=== PATIENT | male | born 1950 | race Caucasian/White ===

== ENCOUNTER → 2017-02-20 | Outpatient (CLI) | payer OTHER ==
[2017-02-20 12:14] LABS: BASO % 0.3 %; BASO ABS # 0.02 K/uL (0-0.2); COMPLETE YES; EOS % 3.8 %; HEMATOCRIT 48.5 % (42-52); IG% 0.3 %; LYMPH % 18.6 %; LYMPH ABS # 1.08 K/uL (1.2-3.4); MEAN CELL VOLUME 86.8 fL (80-100); MEAN CORPUSCULAR HEMOGLOBIN 30.1 pg (25-34); MEAN CORPUSCULAR HGB CONC 34.6 g/dl (32-36); MEAN PLATELET VOLUME 11.3 fL (7.4-10.4); MONO % 12.2 %; NEUT % 64.8 %; PLATELET COUNT 157 K/uL (130-400); RED BLOOD COUNT 5.59 M/uL (4.7-6.1); WHITE BLOOD COUNT 5.81 K/uL (4.8-10.8)
[2017-02-20 12:22] LABS: ALT/SGPT 26 U/L (12-78); AST/SGOT 18 U/L (15-37); BLOOD UREA NITROGEN 18 mg/dl (7-18); BUN/CREATININE RATIO 32.5 (10-20); CALCIUM 8.5 mg/dl (8.5-10.1); CARBON DIOXIDE 22 mmol/L (21-32); CHLORIDE 110 mmol/L (98-107); CREATININE 0.56 mg/dl (0.60-1.40); GLUCOSE 108 mg/dl (70-99); POTASSIUM 4.1 mmol/L (3.5-5.1); SODIUM 139 mmol/L (136-145)
[2017-02-20 12:33] LABS: ALB/GLOB RATIO 0.8 (0.9-2); ALKALINE PHOSPHATASE 86 U/L (45-117); CHOLESTEROL 188 mg/dl (0-200); CHOLESTEROL/HDL RATIO 5.2; HDL CHOLESTEROL 36 mg/dl; LDL CHOLESTEROL CALCULATED 139 mg/dl; TRIGLYCERIDES 64 mg/dl (0-150); VERY LOW DENSITY LIPOPROT CALC 13 mg/dl
== END | disposition home or self-care (01) ==
LOC: C.LABBFT 08:52
PROVIDERS: ATTEND Neuromusculoskeletal Medicine & OMM
DX: Z11.59 Encounter for screening for other viral diseases (principal); Z12.5 Encounter for screening for malignant neoplasm of prostate; R03.0 Elevated blood-pressure reading, without diagnosis of hypertension

== ENCOUNTER → 2017-02-21 | Outpatient (CLI) | payer OTHER ==
--- NOTE | 2017-02-21 09:11 | DIAGNOSTIC IMAGING REPORT ---
R KNEE 1 OR 2 VIEWS ROUTINE CLINICAL HISTORY: M25.561 Chronic pain of right [id number] pain COMPARISON: None. DISCUSSION: Considerable degenerative change all major joint compartments. Narrowing of the joint compartments with mild sclerosis of the articular services. Mild osteophytic reaction from the superior and inferior aspects of the patella. No significant joint effusion. There is no evidence for soft tissue swelling. IMPRESSION: Significant degenerative change all major joint compartments. No acute process. The above report was generated using voice recognition software. It may contain grammatical, syntax or spelling errors. Electronically signed by: Kostas Peck M.D. 02/21/2017 9:09 AM Dictated Date/Time: 02/21/2017 9:08 AM
--- NOTE | 2017-02-21 09:17 | DIAGNOSTIC IMAGING REPORT ---
L HIP UNILATERAL 2 VIEWS CLINICAL HISTORY: M25.352 Hip joint instability, leftR29.898 Left leg weakness left COMPARISON: None. DISCUSSION: Severe degenerative change left hip. Complete loss of joint space. Deterioration and collapse of the superior aspect of the left femoral head. Considerable subchondral cyst formation of the superior acetabular margin. Deformity left pubic ring possibly secondary to old posttraumatic change. There is no evidence for soft tissue swelling. IMPRESSION: Severe degenerative change left hip and associated acetabulum as described. Potential underlying components of avascular necrosis. The above report was generated using voice recognition software. It may contain grammatical, syntax or spelling errors. Electronically signed by: Kostas Peck M.D. 02/21/2017 9:15 AM Dictated Date/Time: 02/21/2017 9:14 AM
== END | disposition home or self-care (01) ==
LOC: C.RADBC 08:33
PROVIDERS: ATTEND Neuromusculoskeletal Medicine & OMM
DX: M16.12 Unilateral primary osteoarthritis, left hip (principal); M17.11 Unilateral primary osteoarthritis, right knee

== ENCOUNTER → 2017-05-18 | Outpatient (CLI) | payer OTHER ==
[~2017-05-18] VITALS: Ht 167.6 cm; Wt 123.6 kg
[~2017-05-18] MED LIST: ACET-1256 PO; ASPI81TA28 PO; ATOR-24 PO; HYDR-5688 PO; LPT/40 PO; LPT40 PO; LSN5 PO; NTRSLP4 SL; PLV75 PO; PRED20TA2 PO; TPRSR50 PO
[2017-05-18 08:56] LABS: BASO % 0.3 %; BASO ABS # 0.02 K/uL (0-0.2); EOS % 3.3 %; HEMATOCRIT 47.6 % (42-52); HEMOGLOBIN 16.8 g/dL (14.0-18.0); IG# 0.01 K/uL (0.00-0.02); LYMPH % 15.5 %; LYMPH ABS # 0.94 K/uL (1.2-3.4); MEAN CELL VOLUME 86.5 fL (80-100); MEAN CORPUSCULAR HEMOGLOBIN 30.5 pg (25-34); MEAN CORPUSCULAR HGB CONC 35.3 g/dl (32-36); MEAN PLATELET VOLUME 10.7 fL (7.4-10.4); MONO % 9.5 %; MONO ABS # 0.58 K/uL (0.11-0.59); NEUT % 71.2 %; NEUT ABS # 4.33 K/uL (1.4-6.5); PLATELET COUNT 152 K/uL (130-400); RED CELL DISTRIBUTION WIDTH CV 13.1 % (11.5-14.5); RED CELL DISTRIBUTION WIDTH SD 41.8 fL (36.4-46.3); WHITE BLOOD COUNT 6.08 K/uL (4.8-10.8)
[2017-05-18 09:11] LABS: PTT PATIENT 25.9 SECONDS (21.0-31.0)
--- NOTE | 2017-05-18 09:19 | DIAGNOSTIC IMAGING REPORT ---
TWO VIEW CHEST CLINICAL HISTORY: Preoperative examination. FINDINGS: PA and lateral chest radiographs are obtained. No prior studies are available for comparison at the time of dictation. The PA view is degraded by patient rotation. The heart is enlarged and there is mild atherosclerotic calcification of the thoracic aorta. The pulmonary vasculature is noncongested. The lungs and pleural spaces are clear. There is no pneumothorax. The skeletal structures are osteopenic. Degenerative change is present throughout the thoracic spine. There are healed left-sided rib fractures. IMPRESSION: Cardiomegaly with no active disease in the chest. Electronically signed by: Frank Bonilla M.D. 05/18/2017 9:18 AM Dictated Date/Time: 05/18/2017 9:17 AM
[2017-05-18 09:22] LABS: BLOOD UREA NITROGEN 19 mg/dl (7-18); CALCIUM 9.2 mg/dl (8.5-10.1); CARBON DIOXIDE 28 mmol/L (21-32); CREATININE 0.58 mg/dl (0.60-1.40); GLUCOSE 116 mg/dl (70-99); POTASSIUM 3.9 mmol/L (3.5-5.1); SODIUM 138 mmol/L (136-145)
--- NOTE | 2017-05-18 22:50 | HISTORY & PHYSICAL EXAMINATION ---
DATE OF ADMISSION: 05/22/2017 CHIEF COMPLAINT: Left hip pain. HISTORY OF PRESENT ILLNESS: This is a 67-year-old gentleman who is referred by my partner Dr. Fisher for surgical treatment of his left hip. He has a 2-year history of increasing left hip pain and discomfort that has gotten to the point where he has used a walker to get around for the past couple of months. No known injury. Describes groin pain, thigh pain and knee pain. It is constant. His leg feels unstable. He states he had several falls as of result of it giving out. X-rays show progressive hip arthritis and the patient elected to proceed with operative treatment. PAST MEDICAL HISTORY: Obesity. PAST SURGICAL HISTORY: None. ALLERGIES: None. CURRENT MEDICATIONS: None. SOCIAL HISTORY: A 67-year-old male. He is . Rare alcohol intake. Does not smoke. FAMILY HISTORY: Significant for cerebrovascular disease. REVIEW OF SYSTEMS: Negative for diabetes, neurologic problems, vascular problems, bleeding disorders. Denies any chest pain or shortness of breath. No history of DVT or PE. He is obese. PHYSICAL EXAMINATION: GENERAL: Reveals a large, middle-aged male. He looks to be in reasonably good health. HEENT: Benign. NECK: Supple. No lymphadenopathy. LUNGS: Clear to auscultation. HEART: Regular rate and rhythm. ABDOMEN: Soft, nontender, nondistended. EXTREMITIES: Grossly neurovascularly intact except as follows: Examination of left hip and leg reveals the patient walks with the use of a walker. Leg lengths are difficult to assess due to the flexion contracture. He has a very stiff hip with minimal motion. He cannot rotate to neutral even. Pain with any type of hip motion. No knee effusion. He is neurologically intact. X-RAYS: X-rays of the left hip were reviewed. It shows advanced left hip DJD. He has collapse of the femoral head. He has essentially destruction of the femoral head. He has large osteophytes around the femoral head and acetabulum. ASSESSMENT: A 67-year-old male with a 2-year history of increasing left hip pain and discomfort and severe and progressive hip arthritis. He would like to proceed with total hip replacement. PLAN: We will take him to the operating room and do a left total hip replacement. The risks and benefits of this procedure were explained to the patient including but not limited to DVT, PE, , infection, neurological injury, vascular injury, bleeding problem, pain, limited range of motion, stiffness, failure to relieve symptoms, incomplete relief of symptoms, need for further surgery in the future, fracture, leg length inequality, nerve palsy, dislocation, etc. The patient understands and desires to proceed. Informed consent was obtained. We did tell him we will do the best we can to make his leg lengths as equal as possible. We are going to plan on using an uncemented Corail stem. We will have a cemented stem as backup due to his poor bone density. As far as discharge plans, he is planning to be discharged home using [facility] home health program.
[2017-05-20 08:22] VITALS: Ht 167.6 cm; Wt 123.6 kg
== END | disposition home or self-care (01) ==
LOC: C.LAB 08:00 → EDSTATUS 05-22 11:45
PROVIDERS: ATTEND Orthopaedic Surgery Sports Medicine
DX: Z01.810 Encounter for preprocedural cardiovascular examination (principal); Z01.811 Encounter for preprocedural respiratory examination; Z01.812 Encounter for preprocedural laboratory examination; M17.12 Unilateral primary osteoarthritis, left knee; I51.7 Cardiomegaly; I44.0 Atrioventricular block, first degree

== ENCOUNTER → 2017-05-28 | Outpatient (CLI) | payer OTHER ==
[~2017-05-28] MED LIST changes: -HYDR-5688 PO; -LPT/40 PO; -PRED20TA2 PO; +REGADENOSON 0.4 MG/5 ML SYR ONE
--- NOTE | 2017-05-29 08:03 | Myocardial Perfusion Study ---
Myocardial Perfusion Study Rpt Myocardial Perfusion Study Rpt Myocardial Perfusion Study Rpt ONE DAY NUCLEAR MEDICINE LEXISCAN TECHNETIUM 99M MYOCARDIAL PERFUSION SCAN Indication: New cardiomyopathy Baseline ECG: Normal sinus rhythm with 1st degree AV block with occasional PVC, LVH, nonspecific intraventricular conduction delay, inferior infarct, inferolateral TWI. Ventricular rate 75. Stress ECG: No Lexiscan induced ST changes. Occasional PVCs. HR jorje from 75 to 100 representing 65% MPHR. Technique: For the stress portion of the study 32.8 mCi of Technetium 99m Cardiolite IV was injected at 11:35 am on 05/28/2017. 30 minutes following the injection, imaging of the heart was performed in multiple projections. For the rest portion of the study, 11.0 mCi of Technetium 99m Cardiolite was injected IV at 09:30 am. One hour following the injection, imaging of the hear was performed in the same projections. Findings: Rotating raw images were reviewed in detail. Potential sources of attenuation include imaging with arms at sides, and mild gut uptake impacting the inferior imaging border of the heart. No significant extracardiac pathologic uptake. Short axis, vertical long axis and horizontal long axis images were reviewed in detail. No visual TID. Severe, large, primarily fixed perfusion defect involving the inferior, inferoseptal and inferolateral clayton (SRS 28, 41% of myocardium). Severely dilated LV. Calculated EDV 470 ml. Calculated EF 10%. Hypokinetic anterior and lateral wall. Paradoxical septal motion. Akinetic inferior, inferolateral and inferoseptal clayton. SUMMARY: 1. Severe, large, fixed inferior/inferoseptal/inferolateral infarct without significant viability. 2. Severely dilated LV with severe LV dysfunction. Calculated LVEF 10% with anterior, lateral hypokinesis and inferior/inferolateral/inferoseptal akinesis. 3. Non-diagnostic stress ECG due to inability to reach target HR with Lexiscan.
== END | disposition home or self-care (01) ==
LOC: C.NUCL 09:04
PROVIDERS: ATTEND Internal Medicine Cardiovascular Disease
DX: R93.1 Abnormal findings on diagnostic imaging of heart and coronary circulation (principal); R94.31 Abnormal electrocardiogram [ECG] [EKG]; Z01.810 Encounter for preprocedural cardiovascular examination; I21.9 Acute myocardial infarction, unspecified

== ENCOUNTER 2017-06-04 08:28 | Observation (INO) | payer OTHER ==
[2017-06-04] VITALS (17 sets, daily range): BP systolic 132–180; BP diastolic 73–101; PULSE 65–87; TEMP 36.3–36.7; O2SAT 94–98; Ht 167.6 cm; Wt 122.3 kg
[~2017-06-04] VITALS: Ht 167.6 cm; Wt 122.3 kg
[~2017-06-04 08:28] MED LIST changes: -ASPI81TA28 PO; -ATOR-24 PO; -LPT40 PO; -LSN5 PO; -NTRSLP4 SL; -PLV75 PO; -REGADENOSON 0.4 MG/5 ML SYR ONE; -TPRSR50 PO
[2017-06-04] MEDS ORDERED: NiCARDipine HCL INJ 2.5 MG/ML 10 ML AMP ONE (09:28)
[2017-06-04] MEDS ORDERED: NITROGLYCERIN/D5W 100MCG/ML 20ML SYR ONE (09:28)
[2017-06-04] MEDS ORDERED: MIDAZOLAM HCL 1 MG/ML 2ML VIAL ONE ×3 (09:29→11:48)
[2017-06-04] MEDS ORDERED: HEPARIN SOD (PORCINE) 1000 UNIT/ML 10 ML VIAL ONE ×2 (09:29→10:56)
[2017-06-04] MEDS ORDERED: FENTANYL CITRATE INJ 50 MCG/1 ML 2 ML VIAL ONE ×2 (09:30→11:36)
[2017-06-04] MEDS ORDERED: ATOR-24 PO (09:35)
[2017-06-04] MEDS ORDERED: TPRSR50 PO (09:35)
[2017-06-04] MEDS ORDERED: ASPI81TA28 PO (09:35)
[2017-06-04] MEDS ORDERED: ASPIRIN 81 MG CHEW ONE (10:12)
[2017-06-04] MEDS ORDERED: IV FLUIDS COMPLETED PRN (12:15)
[2017-06-04] MEDS ORDERED: TICAGRELOR 90 MG TAB PO ONE (12:16)
--- NOTE | 2017-06-04 12:37 | History & Physical Bridge Note ---
H&P Re-Evaluation Bridge Note: I have examined the patient, reviewed the History & Physical and in the interval since the performance of the History & Physical I have noted the following changes of clinical significance: No changes noted
--- NOTE | 2017-06-04 12:38 | Post Sedation Assessment ---
Post Sedation Assessment General Date of Sedation Jun 04, 2017. Vital Signs: Vital Signs Past 12 Hours Date Time Temp Pulse Resp B/P (MAP) Pulse Ox O2 Delivery O2 Flow Rate FiO2 06/04/17 12:14 65 16 142/86 (104) 98 Room Air 06/04/17 09:23 36.6 74 16 180/96 (124) 98 Room Air Post Procedure Recovery Score Activity: (2) Moves 4 extremities * Respiration: (2) Deep breath/cough Circulation: (2) +/-20% PreAnes Value Consciousness: (2) Fully Awake Oxygen Saturation: (2) > 92% On Room Air Post Anesthesia Score: 10 Discharge Sedation Level of Care: Fast Track Phase II Post Sedation Plan On clinical assessment, the patient appears to have tolerated the sedation without complications. Patient is recovering as anticipated. Patient will continue to be monitored by nursing and may be discharged when sedation discharge criteria are met per below protocol. Upon Completions of procedure and additional 15 minutes continue every 5 minute vital signs and the P.A.R. score; then discharge to a Phase I or Fast Track to Phase II per the following guidelines: * Discharge Patient to appropriate Phase II area if PAR is 8 or greater or return to pre- procedure baseline. The post - procedure orders will be as directed. * If PAR score is less than 8 or not return to pre-procedure baseline then patient will follow Phase I monitoring till PAR is reached for Phase II. The Phase I may be done in procedure room or may call to secure a Phase I area. * If naloxone or flumazenil are used for reversal, hold in Phase I for an additional 60 -120 minutes before discharge to Phase II. Please call the Sedation Physician to re-evaluate and complete post-note for discharge to Phase II area. Do NOT discharge from procedure sedation or Phase 1 until post- sedation evaluation note is complete by procedure /sedation MD Sedation Discharge Instructions to be given to the patient at discharge to home.
--- NOTE | 2017-06-04 12:38 | Pre Sedation Assessment ---
Pre Sedation Assessment General Date of Sedation: Jun 04, 2017. Vital Signs Past 12 Hours Date Time Temp Pulse Resp B/P (MAP) Pulse Ox O2 Delivery O2 Flow Rate FiO2 06/04/17 12:14 65 16 142/86 (104) 98 Room Air 06/04/17 09:23 36.6 74 16 180/96 (124) 98 Room Air Review Cardiovascular: regular rate, rhythm, no edema Lungs: chest non-tender, lungs clear Pre-Sedation Airway Assessment Smoking Status: Never Smoker Hx of Sleep Apnea: No Hx of difficult intubation: No Short Thick Neck: No Thyro-mental Distance: > 3 Finger Breadths Oral Cavity: WNL Mallampati Classification: Class III ASA Classification: Class III Procedure Planning Contraindications for Sedation: None Current Medications Reviewed: Yes Notes The planned sedation has been discussed with the patient. Informed Consent was obtained. I have identified the patient, determined the appropriateness of sedation and have assessed the patient immediately prior to the procedure. All medicine(s) and interventions are by my order.
[2017-06-04] MEDS ORDERED: NITROGLYCERIN 0.4 MG SL PER TAB CHARGE SL PRN (12:45)
[2017-06-04] MEDS ORDERED: ACETAMINOPHEN 325 MG TAB PO PRN (12:45)
[2017-06-04] MEDS ORDERED: ONDANSETRON INJ 2 MG/ML 2 ML VIAL IV PRN (12:45)
--- NOTE | 2017-06-04 13:00 | Cardiac Catheterization ---
Procedure Note Procedure Date Jun 04, 2017. Pre-Procedure Diagnosis Positive Stress Test, Cardiomyopathy AUC Score 7 Post-Procedure Diagnosis Severe CAD, Successful PCI Procedure(s) Performed Coronary Angiography, Drug Eluting Stent Editor Farm Journal Devin Mold Inspector(s) Víctor Estimated Blood Loss 15 Medication(s) Fentanyl, Heparin, Nicardipine, Nitroglycerin, Versed, Lidocaine 1% Ticagrelor Summary of Findings Indication: Cardiomyopathy, Abnormal stress test Access: 6Fr slender right radial artery Catheters: [place]; EBU 3.5 guide Findings: LM - Luminal irregularities LAD - Large vessel, 80% proximal to mid stenosis involving bifurcation of moderate caliber 1st diagonal. 1st diagonal with 90% diffuse ostial/proximal disease. Mid to distal LAD with luminal irregularities Ramus - Angiographically normal Circumflex - Luminal irregularities; gives off 3 small OMs without significant disease; Distal circumflex provides epicardial collaterals to large right distal PLBs. RCA - 100% chronic total occlusion in mid segment; few bridging collaterals partially fills R-PAV, small PLB. -- PCI -- Antithrombotic therapy: Heparin, ticagrelor Procedure: LM cannulated with EBU 3.5 guide BMW wire passed across LAD lesion into distal vessel Store Detective 50 wire passed into distal 1st diagonal Ostial/proximal diagonal pre-dilated with 2.5 balloon Proximal/mid LAD dilated with 2.5 compliant balloon. 2.5 x 33 Xience NEIL placed at ostium of 1st diagonal Mid LAD dilated again with 3.0 compliant balloon. Brief non-sustained VT resolved without intervention. 3.5 x 23 Xience NEIL placed across 1st diagonal ostium (T with protrusion) LAD Stent post-dilated with 4.0 noncompliant balloon Able to rewire into 1st diagonal but unable to pass 1.5 balloon across stent struts IC vasodilators administered for spasm Post procedure NIHARIKA 3 flow in LAD and 1st diagonal, stents well expanded with minimal residual stenosis and no apparent cardiac complications. Arterial Closure: TR band Summary: 1. Severe 2 vessel coronary artery disease - 100% TRADE ANALYST mid RCA with left to right collaterals and few right to right collaterals - 80% proximal to mid LAD with 90% diffuse 1st diagonal disease 2. Successful PCI of proximal-mid LAD, 1st diagonal bifurcation with 2 drug- eluting stents (3.5 x 23 Xience [post-dilated with 4.0 NC], 2.5 x 33 Xience in diagonal) Recommendations: To PCU for continued monitoring Loaded with Ticagrelor 180mg in [employer] Continue dual-antiplatelet therapy for at least 6 months Continue statin, ASCVD risk factor modification Continue guideline directed medical therapy for cardiomyopathy. Consult cardiac Rehab Reassess LV function in 3 months. Hemodynamics Rest Ao: 105/67/83 Final Ao: 140/70/97 LV: -- Recommendations PCI without planned CABG Specimens None Radiation Exposure (mGy) 8382 (patient counseled on signs/sxs of radiation injury) Contrast (mls) 270 Visi Fluids (cc crystalloids) 220 Drains None Anesthesia Moderate Procedural Complication(s) None Disposition PCU ACC Data Cardiac Status Clinical evaluation leading to the procedure CAD Presntation: Positive Stress Test Anginal Classification: CCS II Heart Failure: No, NYHA Class: CCS I Cardiogenic Shock w/in 24Hrs: No Cardiac Arrest w/in 24Hrs: No Imaging studies past 6 months: Yes Stress studies past 6 months: Yes Stress Testing w/SPECT MPI: Yes - Positive, Risk/Extent of Ischemia (Low) Closure Device Percutaneous Entry Location: Radial Closure Device: Radial Band Recommendations: PCI without planned CABG PCI Indication: + Stress Test Lesion Segment Name: Proximal-mid LAD Culprit Artery: Yes Stenosis Prior to Rx (%): 80 Chronic Total Occlusion: No IVUS: No FFR: No Pre-Procedure NIHARIKA Flow: 3 Previously Treated Lesion: No Lesion Complexity: High/C Lesion Length (mm): 20 Thrombus Present: No Bifurcation Lesion: Yes Guidewire Across Lesion: Yes Guidewire: Stenosis Post-Procedure (%): 0 Post-Procedure NIHARIKA Flow: 3 Device(s) Deployed: Yes Intraprocedure Events Significant Dissection: No Perforation: No
[2017-06-04] MEDS: SODIUM CHLORIDE 0.9% 1000ML 1,000 ML IV SCH ×2 (13:41→20:02)
[2017-06-04] MEDS: METOPROLOL SUCC 50MG EXT REL TAB PO SCH (14:21)
[2017-06-04] MEDS: TICAGRELOR 90 MG TAB PO SCH (20:58)
[2017-06-04] MEDS ORDERED: ATORVASTATIN 40 MG TAB PO SCH (21:00)
[2017-06-05 03:37] VITALS: BP 144/84; PULSE 78; TEMP 36.6; O2SAT 95
[2017-06-05 05:41] LABS: BASO % 0.1 %; BASO ABS # 0.01 K/uL (0-0.2); EOS % 4.6 %; EOS ABS # 0.36 K/uL (0-0.5); HEMATOCRIT 43.4 % (42-52); HEMOGLOBIN 14.8 g/dL (14.0-18.0); IG# 0.02 K/uL (0.00-0.02); LYMPH % 9.2 %; LYMPH ABS # 0.72 K/uL (1.2-3.4); MEAN CELL VOLUME 87.5 fL (80-100); MEAN CORPUSCULAR HEMOGLOBIN 29.8 pg (25-34); MEAN CORPUSCULAR HGB CONC 34.1 g/dl (32-36); MEAN PLATELET VOLUME 10.8 fL (7.4-10.4); MONO % 11.9 %; MONO ABS # 0.93 K/uL (0.11-0.59); NEUT % 73.9 %; NEUT ABS # 5.76 K/uL (1.4-6.5); PLATELET COUNT 140 K/uL (130-400); RED CELL DISTRIBUTION WIDTH CV 13.3 % (11.5-14.5); RED CELL DISTRIBUTION WIDTH SD 42.9 fL (36.4-46.3)
[2017-06-05 06:11] LABS: CALCIUM 8.4 mg/dl (8.5-10.1); CREATININE 0.67 mg/dl (0.60-1.40); POTASSIUM 4.2 mmol/L (3.5-5.1)
[2017-06-05] MEDS: METOPROLOL SUCC 50MG EXT REL TAB PO SCH (07:51)
[2017-06-05] MEDS: TICAGRELOR 90 MG TAB PO SCH (07:51)
[2017-06-05 08:08] VITALS: BP 134/76; PULSE 74; TEMP 36.3; O2SAT 97
[2017-06-05] MEDS ORDERED: LISINOPRIL 5 MG TAB PO SCH (09:00)
[2017-06-05] MEDS ORDERED: ASPIRIN 81 MG ECTAB PO SCH (09:00)
[2017-06-05] MEDS ORDERED: CLOPIDOGREL BISULFATE 300 MG TAB PO STA (09:16)
[2017-06-05] MEDS ORDERED: LSN5 PO (09:22)
[2017-06-05] MEDS ORDERED: PLV75 PO (09:22)
[2017-06-05] MEDS ORDERED: LPT40 PO (09:22)
[2017-06-05] MEDS ORDERED: NTRSLP4 SL (09:22)
--- NOTE | 2017-06-05 09:24 | Discharge Instructions ---
Discharge Instructions Procedure Procedure Date: Jun 05, 2017. Reason for Visit: Abn Echo. Discharge Discharge Date: Jun 05, 2017. Discharge Diagnosis: Coronary artery disease, cardiomyopathy Last Recorded Wt (Kilograms): 122.300 Anesthesia Post Anesthesia Instructions: If you have had General Anesthesia or IV Sedation: * Do not drive today. * Resume driving when surgeon permits. * Do not make important decisions or sign legal documents today. * Call surgeon for: 1. Temperature elevations greater than 101 degrees F. 2. Uncontrollable pain. 3. Excessive bleeding. 4. Persistent nausea and vomiting. 5. Medication intolerance (nausea, vomiting or rash). * For nausea and vomiting use only clear liquids such as: tea, soda, bouillon until nausea subsides, then gradually increase diet as tolerated. * If you have any concerns or questions, call your surgeon's office. If physician is unavailable and it is an emergency, call 911 or go to the nearest emergency room. Instructions Activity Recommendations: limitations as noted below Recommended Home Diet: low sodium, low cholesterol Allergies: Coded Allergies: No Known Allergies (Unverified , 05/20/17) Follow Up Additional Instructions: ACTIVITY RECOMMENDATIONS: Excess manipulation of the wrist should be avoided for the next 24-48 hours. * No lifting over 2 pounds (approximately a 1/2 gallon of milk) with the utilized arm for 24 hours. * No strenuous activity such as bowling or tennis for 3 days. * Keep the site of the procedure covered with a bandage for 24 hours. *You may shower the day after the procedure. Do not take a tub bath or submerge the puncture site in water for the next 3 days. *Do not operate any motorized equipment for 3 days. SPECIAL CARE INSTRUCTIONS: The site may be slightly bruised and sore following your procedure. Should any of the following occur, contact the Dr. who performed your procedure. 1. Redness/inflammation, swelling, chills, or fever, or colored drainage at procedure site within 3-7 days after your procedure. 2. Coldness, discoloration, ongoing numbness, severe pain, or swelling. Expect mild tingling of hand and tenderness at the puncture site for up to three days. If this persists beyond three days, or other symptoms develop, notify the Dr. who performed your procedure. BLEEDING: If the procedure site on your wrist begins to bleed, do not panic 1. Place 1 or 2 fingers firmly just slightly above the insertion site to stop the bleeding. You may be able to feel your pulse as you hold pressure. 2. Lift your finger after 5 minutes to see if the bleeding has stopped. 3. Once the bleeding has stopped, gently wipe the wrist area clean with a bandage. * If the bleeding from your wrist does not stop after 10 minutes, or if there is a large amount of bleeding or spurting, call 911 (do not drive yourself to the hospital). SKIN IRRITATION: * You may experience some redness and/or swelling in the area where radiation was administered. If any skin irritation occurs, please contact your family physician. FOLLOW UP VISIT: Keep any scheduled doctor appointments. Follow-up with: As scheduled with Dr. Sarthak Natarajan Recommendations: Call your doctor if: * Temperature above 101 degrees * Pain not relieved by pain medicine ordered * There is increased drainage or redness from any incision * You have any unanswered questions or concerns. Your Doctors Instructions noted above were prepared by provider Anil Beltran. Patient Signature Section: Patient Instructions Signature Page Iftikhar Alfaro Patient (or Guardian) Signature/Date: I have read and understand the instructions given to me by my caregivers. Caregiver/RN/Doctor Signature/Date: The above-named patient and/or guardian has received patient instructions on this date. + Original Patient Signature Page (only) stays with chart. Please make copy for patient.
--- NOTE | 2017-06-05 09:53 | DISCHARGE SUMMARY ---
ADMITTING DIAGNOSES: 1. Cardiomyopathy. 2. Multivessel coronary artery disease. 3. Abnormal stress test. 4. Nonsustained ventricular tachycardia. HISTORY OF PRESENT ILLNESS: Mr. Alfaro is a 67-year-old man with morbid obesity and severe osteoarthritis involving his hip who was undergoing evaluation for a total hip replacement when was noted on preoperative evaluation to have an initial EKG showing inferior infarct. He later underwent an echocardiogram which showed new severe LV dysfunction with inferior wall motion abnormality. This prompted an outpatient nuclear SPECT which showed severe LV dysfunction with an EF calculated at 10-15% and a large severe inferior wall perfusion defect without significant viability. The patient was admitted yesterday for planned cardiac catheterization. HOSPITAL COURSE: The patient underwent cardiac catheterization via right radial artery. Cardiac catheterization revealed an occluded mid RCA with faint collaterals to the distal vessel. LAD was a large vessel with an 80% proximal to mid stenosis involving a moderate caliber first diagonal that had 90% diffuse disease. The patient was treated with PCI with 2 drug-eluting stents, 1 to LAD and 1 to first diagonal in a T-stenting formation. Good angiographic result was obtained. Post-procedure he was admitted to telemetry for observation. Overnight, he was loaded with ticagrelor before being switched to Plavix prior to discharge. Overnight he had no recurrent chest pain. No arrhythmias on telemetry. Of note, he did have one episode of sustained VT during his catheterization that broke spontaneously without intervention. We did discuss the possibility of going home on a LifeVest, but not interested at this time. Going forward, we will discharge on aspirin, Plavix and guideline-directed medical therapy for his cardiomyopathy. Plan on follow up with Dr. De León in 2 weeks. We will discuss cardiac rehab at that time. With recent stenting in the setting of stable angina, the patient will need to be on dual antiplatelet therapy for at least 6 months at which time he could undergo planned total hip replacement. DISCHARGE MEDICATIONS: 1. Atorvastatin 40 mg at bedtime. 2. Clopidogrel 75 mg q.a.m. 3. Lisinopril 5 mg daily. 4. Nitroglycerin 0.4 mg tabs p.r.n. 5. Tylenol 500 mg p.r.n. 6. Aspirin 81 mg daily. 7. Metoprolol succinate 50 mg daily. Follow up with Dr. De León on 06/19/2017.
[2017-06-05 10:59] VITALS: BP 134/76; PULSE 74; TEMP 36.3; O2SAT 97
[2017-06-06] MEDS ORDERED: CLOPIDOGREL BISULFATE 75 MG TAB PO SCH (09:00)
== END 2017-06-05 12:50 | disposition home or self-care (01) ==
LOC: C.CATH 08:28 → C.2T 10:33 → ENRESERV 10:44
PROVIDERS: ADMIT Internal Medicine Interventional Cardiology; ATTEND Internal Medicine Interventional Cardiology
DX: I25.10 Atherosclerotic heart disease of native coronary artery without angina pectoris (principal); I25.82 Chronic total occlusion of coronary artery; I25.5 Ischemic cardiomyopathy; I10 Essential (primary) hypertension; E78.5 Hyperlipidemia, unspecified; E66.01 Morbid (severe) obesity due to excess calories; M17.11 Unilateral primary osteoarthritis, right knee; M16.12 Unilateral primary osteoarthritis, left hip; Z82.3 Family history of stroke; Z80.42 Family history of malignant neoplasm of prostate
CPT/HCPCS: C9600

== ENCOUNTER 2017-06-14 03:36 | Emergency (ER) | payer OTHER ==
[~2017-06-14] VITALS: Ht 172.7 cm; Wt 127.9 kg
[~2017-06-14 03:36] MED LIST changes: +ASPI81TA28 PO; +LPT40 PO; +LSN5 PO; +NTRSLP4 SL; +PLV75 PO; +TPRSR50 PO
[2017-06-14 03:43] VITALS: TEMP 37; Ht 172.7 cm; Wt 127.9 kg
[2017-06-14 04:23] LABS: BASO % 0.2 %; BASO ABS # 0.02 K/uL (0-0.2); EOS % 3.3 %; EOS ABS # 0.27 K/uL (0-0.5); HEMOGLOBIN 15.1 g/dL (14.0-18.0); IG# 0.02 K/uL (0.00-0.02); LYMPH % 8.8 %; LYMPH ABS # 0.71 K/uL (1.2-3.4); MEAN CELL VOLUME 86.5 fL (80-100); MEAN CORPUSCULAR HEMOGLOBIN 30.4 pg (25-34); MEAN CORPUSCULAR HGB CONC 35.1 g/dl (32-36); MEAN PLATELET VOLUME 10.7 fL (7.4-10.4); MONO ABS # 1.13 K/uL (0.11-0.59); NEUT % 73.5 %; NEUT ABS # 5.95 K/uL (1.4-6.5); PLATELET COUNT 157 K/uL (130-400); RED CELL DISTRIBUTION WIDTH CV 13.6 % (11.5-14.5); RED CELL DISTRIBUTION WIDTH SD 42.5 fL (36.4-46.3)
[2017-06-14 04:49] LABS: ALBUMIN 3.1 gm/dl (3.4-5.0); CALCIUM 8.6 mg/dl (8.5-10.1); CREATININE 0.54 mg/dl (0.60-1.40); POTASSIUM 3.9 mmol/L (3.5-5.1)
[2017-06-14 05:00] LABS: TOTAL PROTEIN 6.4 gm/dl (6.4-8.2)
[2017-06-14 05:12] VITALS: O2SAT 97
--- NOTE | 2017-06-14 06:41 | DIAGNOSTIC IMAGING REPORT ---
CHEST ONE VIEW PORTABLE CLINICAL HISTORY: Weakness. Recent cardiac cath. Dyspnea COMPARISON STUDY: 05/18/2017 FINDINGS: The bones soft tissues and hemidiaphragms are normal. The cardiomediastinal silhouette is normal. The lungs are clear. The pulmonary vasculature is normal. IMPRESSION: Negative chest. The above report was generated using voice recognition software. It may contain grammatical, syntax or spelling errors. Electronically signed by: Kostas Pekc M.D. 06/14/2017 6:39 AM Dictated Date/Time: 06/14/2017 6:34 AM
[2017-06-14] MEDS ORDERED: LPT/40 PO (07:02)
[2017-06-14] MEDS ORDERED: HYDR-5688 PO (07:02)
[2017-06-14] MEDS ORDERED: PRED20TA2 PO (07:02)
--- NOTE | 2017-06-14 07:03 | DIAGNOSTIC IMAGING REPORT ---
CERVICAL SPINE W/O CT DOSE: 1258.01 mGy.cm HISTORY: Pain. Neuropathy. Vague weakness TECHNIQUE: Multiaxial CT images of the cervical spine were performed and reformatted in the sagittal and coronal plane without the use of contrast. A dose lowering technique was utilized adhering to the principles of ALARA. COMPARISON: None. FINDINGS: No fractures. No subluxation. Prevertebral soft tissues and the C1-C2 interval are intact. No pneumothorax. Degenerative change throughout the entire cervical region. IMPRESSION: Degenerative change. No acute bony abnormality. The above report was generated using voice recognition software. It may contain grammatical, syntax or spelling errors. Electronically signed by: Kostas Peck M.D. 06/14/2017 7:02 AM Dictated Date/Time: 06/14/2017 7:01 AM
--- NOTE | 2017-06-14 07:33 | DIAGNOSTIC IMAGING REPORT ---
HEAD WITHOUT CONTRAST (CT) CLINICAL HISTORY: 67 years-old Male presenting with Vague weakness. TECHNIQUE: Multidetector CT imaging of the head was performed without the use of intravenous contrast. IV contrast: None. A dose lowering technique was used consistent with the principles of ALARA (as low as reasonably achievable). COMPARISON: None. CT DOSE (mGy.cm): The estimated cumulative dose is 1250.[address] cervical spine. FINDINGS: Automotive Paint Technician topogram: Unremarkable. Ventricles and sulci normal in size. Periventricular and subcortical white matter hypoattenuation, nonspecific but likely indicative of chronic small vessel ischemic change. Old lacunar infarct in the left basal ganglia. No mass effect or midline shift. No hemorrhage or acute territorial infarct. No extra-axial fluid collection. Paranasal sinuses and mastoid air cells clear. Calvarium intact. IMPRESSION: 1. Chronic small vessel ischemic change. No acute intracranial abnormality. Electronically signed by: Boone Elder M.D. 06/14/2017 7:32 AM Dictated Date/Time: 06/14/2017 6:56 AM
[2017-06-14 07:34] VITALS: BP 129/70; PULSE 74
--- NOTE | 2017-06-14 07:37 | EMERGENCY ROOM VISIT NOTE ---
ED Visit Note First contact with patient: 03:38 I have personally seen and evaluated the patient with the PA. I agree with the diagnosis and management decisions and have been personally involved in the case. Upon my evaluation of the patient, he is neurologically intact. He does seem to be suffering from a peripheral neuropathy. It is likely related to either the IV contrast or more likely medication changes recently. Cervical spine CT confirms a cervical cord compression likely causing the patient's upper extremity symptoms. Case was discussed with Dr. Carbajal of orthopedic spine. The patient is a poor surgical candidate at this time given his EF of 10 -15% and recent stent placement for severe CAD.. The neuropathy was discussed with Dr. Lopez of cardiology with regards to the Lipitor. The patient was placed on a course of prednisone for his cervical radiculopathy, his Lipitor was cut to 40 mg daily from 80 mg daily. He was given a prescription for [place] to be used as needed for pain. The patient was discharged to follow-up with both orthopedics and cardiology. Please see Scott Cueva PA-C's notes for further details of the history, physical and visit.
--- NOTE | 2017-06-15 07:47 | EMERGENCY ROOM VISIT NOTE ---
History First contact with patient: 03:38 Chief Complaint: WEAKNESS Stated Complaint: WEAKNESS/TINGLING EXTREMITIES Nursing Triage Summary: Pt presents for increased weakness in b/l hands and feet. Cardiac cath last week, since procedure having progressive weakness. History of Present Illness The patient is a 67 year old male who presents to the Emergency Room with complaints of increased weakness and intermittent numbness to his bilateral hands and feet. The patient states the symptoms have been worsening over the past 5 days. The patient has an extensive recent medical history including cardiac catheterization 10 days ago. The patient states that he had some increase in his cholesterol medication following the cardiac catheterization. He is also now on aspirin and Plavix daily. The patient is not having fever, chills, chest pain, chest tightness, shortness of breath, or abdominal pain. He is not diabetic. He states that his pain in his hands typically starts at his elbows and will shoot into the fingers. It does not occur constantly, but does come and go. He is also complaining of more right lower foot pain then left. He does have some chronic right knee pain as well as chronic left hip pain. He is not taken anything [id number] for pain control and rates current discomfort a 6/10. Review of Systems More than 10 systems were reviewed and otherwise negative with the exception of history of present illness. Past Medical/Surgical History History of coronary artery disease with recent catheterization Family History Coronary artery disease Social History Smoking Status: Unknown if Ever Smoked Housing Status: lives with family Current/Historical Medications Scheduled Acetaminophen (Tylenol), 1,000 MG PO PRN Aspirin (Aspirin Ec), 81 MG PO DAILY Atorvastatin (Lipitor), 80 MG PO HS Atorvastatin (Lipitor), 40 MG PO DAILY Clopidogrel Bisulfate (Clopidogrel), 75 MG PO QAM Lisinopril (Lisinopril), 5 MG PO QAM Metoprolol Succinate (Metoprolol Succinate ER), 1 TAB PO DAILY Prednisone (Prednisone Tab), 2 TAB PO DAILY Scheduled PRN Hydrocodone/Acetaminophen 5MG/325MG ([place] 5MG/325MG), 1-2 TABLET PO Q6 PRN for Pain Nitroglycerin (Nitrostat), 0.4 MG SL UD PRN for Chest Pain Physical Exam Vital Signs Date Time Temp Pulse Resp B/P (MAP) Pulse Ox O2 Delivery O2 Flow Rate FiO2 06/14/17 07:34 74 16 129/70 06/14/17 05:12 72 18 113/68 97 06/14/17 04:17 Room Air 06/14/17 03:48 74 06/14/17 03:43 37.0 68 18 130/108 100 Room Air Physical Exam VITALS: Vitals are noted on the nurse's note and reviewed by myself. Vital signs stable. GENERAL: Well-developed, well-nourished, white male, who is in no acute distress and resting comfortably. Patient is cooperative with the examination. NECK: Supple without nuchal rigidity. No lymphadenopathy. No thyromegaly. Cervical spine is nontender. HEART: Regular rate and rhythm without murmurs gallops or rubs. LUNGS: Clear to auscultation bilaterally without wheezes, rales or rhonchi. No retractions or accessory muscle use. MUSCULOSKELETAL: No muscle atrophy, erythema, or edema noted. Full range of motion without joint tenderness in all extremities. 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 NEURO: Patient was alert and oriented to person place and time. CN II through XII grossly intact. No focal neurological deficits. Deep tendon reflexes 2+ throughout. SKIN: The skin was without rashes Medical Decision & Procedures ER Provider Diagnostic Interpretation: HEAD WITHOUT CONTRAST (CT) CLINICAL HISTORY: 67 years-old Male presenting with Vague weakness. TECHNIQUE: Multidetector CT imaging of the head was performed without the use of intravenous contrast. IV contrast: None. A dose lowering technique was used consistent with the principles of ALARA (as low as reasonably achievable). COMPARISON: None. CT DOSE (mGy.cm): The estimated cumulative dose is 1250.[address] cervical spine. FINDINGS: Radiology Physician topogram: Unremarkable. Ventricles and sulci normal in size. Periventricular and subcortical white matter hypoattenuation, nonspecific but likely indicative of chronic small vessel ischemic change. Old lacunar infarct in the left basal ganglia. No mass effect or midline shift. No hemorrhage or acute territorial infarct. No extra-axial fluid collection. Paranasal sinuses and mastoid air cells clear. Calvarium intact. IMPRESSION: 1. Chronic small vessel ischemic change. No acute intracranial abnormality. CERVICAL SPINE W/O CT DOSE: 1258.01 mGy.cm HISTORY: Pain. Neuropathy. Vague weakness TECHNIQUE: Multiaxial CT images of the cervical spine were performed and reformatted in the sagittal and coronal plane without the use of contrast. A dose lowering technique was utilized adhering to the principles of ALARA. COMPARISON: None. FINDINGS: No fractures. No subluxation. Prevertebral soft tissues and the C1-C2 interval are intact. No pneumothorax. Degenerative change throughout the entire cervical region. IMPRESSION: Degenerative change. No acute bony abnormality. CHEST ONE VIEW PORTABLE CLINICAL HISTORY: Weakness. Recent cardiac cath. Dyspnea COMPARISON STUDY: 05/18/2017 FINDINGS: The bones soft tissues and hemidiaphragms are normal. The cardiomediastinal silhouette is normal. The lungs are clear. The pulmonary vasculature is normal. IMPRESSION: Negative chest. Laboratory Results 06/14/17 04:15 Red Blood Count 4.97, Mean Corpuscular Volume 86.5, Mean Corpuscular Hemoglobin 30.4, Mean Corpuscular Hemoglobin Concent 35.1, Mean Platelet Volume 10.7, Neutrophils (%) (Auto) 73.5, Lymphocytes (%) (Auto) 8.8, Monocytes (%) (Auto) 14.0, Eosinophils (%) (Auto) 3.3, Basophils (%) (Auto) 0.2, Neutrophils # (Auto ) 5.95, Lymphocytes # (Auto) 0.71, Monocytes # (Auto) 1.13, Eosinophils # (Auto ) 0.27, Basophils # (Auto) 0.02 06/14/17 04:15 Test 06/14/17 04:15 White Blood Count 8.10 K/uL (4.8-10.8) Red Blood Count 4.97 M/uL (4.7-6.1) Hemoglobin 15.1 g/dL (14.0-18.0) Hematocrit 43.0 % (42-52) Mean Corpuscular Volume 86.5 fL (80-100) Mean Corpuscular Hemoglobin 30.4 pg (25-34) Mean Corpuscular Hemoglobin Concent 35.1 g/dl (32-36) Platelet Count 157 K/uL (130-400) Mean Platelet Volume 10.7 fL (7.4-10.4) Neutrophils (%) (Auto) 73.5 % Lymphocytes (%) (Auto) 8.8 % Monocytes (%) (Auto) 14.0 % Eosinophils (%) (Auto) 3.3 % Basophils (%) (Auto) 0.2 % Neutrophils # (Auto) 5.95 K/uL (1.4-6.5) Lymphocytes # (Auto) 0.71 K/uL (1.2-3.4) Monocytes # (Auto) 1.13 K/uL (0.11-0.59) Eosinophils # (Auto) 0.27 K/uL (0-0.5) Basophils # (Auto) 0.02 K/uL (0-0.2) RDW Standard Deviation 42.5 fL (36.4-46.3) RDW Coefficient of Variation 13.6 % (11.5-14.5) Immature Granulocyte % (Auto) 0.2 % Immature Granulocyte # (Auto) 0.02 K/uL (0.00-0.02) Anion Gap 7.0 mmol/L (3-11) Est Creatinine Clear Calc Drug Dose 170.7 ml/min Estimated GFR () 125.0 Estimated GFR (Non- 107.9 BUN/Creatinine Ratio 46.9 (10-20) Calcium Level 8.6 mg/dl (8.5-10.1) Magnesium Level 2.0 mg/dl (1.8-2.4) Total Bilirubin 0.8 mg/dl (0.2-1) Aspartate Amino Transf (AST/SGOT) 19 U/L (15-37) Alanine Aminotransferase (ALT/SGPT) 25 U/L (12-78) Alkaline Phosphatase 83 U/L (45-117) Bedside Troponin I < 0.030 ng/ml (0-0.045) Pro-B-Type Natriuretic Peptide 218 pg/ml (0-900) Total Protein 6.4 gm/dl (6.4-8.2) Albumin 3.1 gm/dl (3.4-5.0) Globulin 3.3 gm/dl (2.5-4.0) Albumin/Globulin Ratio 0.9 (0.9-2) Thyroid Stimulating Hormone (TSH) 2.940 uIu/ml (0.300-4.500) ED Course Physical exam and history were performed. Nursing notes, EMR, and Medication List were personally reviewed. Patient appears to have bilateral intermittent hand and leg weakness for the past few days. EKG was performed and was sinus rhythm at 73 bpm with first- degree AV block. No distinct ST elevation is noted. IV access was established and labs were obtained. Taking into consideration the patient's recent catheterization as well as possible radicular nature of his symptoms CT scan of the head and neck was performed. Chest x-ray was performed as a precaution. The patient was placed cardiac rehabilitation specialist. The patient's blood work is as above and was reviewed. He does not have a significantly elevated white blood cell count, gross anemia, bandemia, or significant electrolyte imbalance. Troponin [address] scan of the head is without acute intracranial finding. Neck CT show degenerative findings most prominent in the C5-C6 distribution. The case was discussed with my attending physician, Dr. Alfaro, who also independently evaluated the patient. We agree that the patient's symptoms seem to be radicular in nature, especially in the bilateral upper extremities. The cause of this is not distinctly appreciated. This concerned me be related to medication changes, cervical radiculopathy, or possible contrast-related issues. The case was discussed with the on-call mapping specialist, Dr. Carbajal, who recommends outpatient follow-up. The case was also discussed with the on- call building principal, Dr Lopez. After discussion with the specialist the patient will be given a short course of steroids and pain medication. His discomfort could be an exacerbation of pain from mechanically laying for the cardiac catheterization and subsequent hospital stay. The patient is currently without neurologic deficit, and evidently does have an upcoming appointment in a few days with Dr De León of cardiology. We will refer the patient back to a dose of 40 mg Lipitor from 80 mg, as his symptoms could be medication related. The patient is to continue monitoring for evolution of his symptoms. If he has any worsening of his symptoms over the weekend he is to return to the Emergency Department immediately. The patient was pleased with this plan and voiced understanding. He was discharged home in the care of his family with instructions as below. The chart was completed utilizing [employer] Voice Recognition Software. Grammatical errors, random word insertions, pronoun errors, and incomplete sentences are an occasional consequence of this system due to software limitations, ambient noise, and hardware issues. Any formal questions or concerns about the content, text, or information contained within the body of this dictation should be directly addressed to the provider for clarification. . Medical Decision Differential diagnosis includes, but is not limited to: Cervical radiculopathy, Guillain-Church, catheterization complication, neuropathy, medication reaction, myocardial infarction, dysrhythmia, pericarditis, pneumothorax, aortic aneurysm/ dissection, DVT/PE, anxiety, GERD, PUD, electrolyte imbalance, thyroid disorder , pneumonia, bronchitis, pancreatitis, and others Impression Primary Impression: Paresthesia and pain of both upper extremities Additional Impression: Paresthesia of both legs Departure Information Dispostion Home / Self-Care Condition GOOD Prescriptions Prednisone (Prednisone Tab) 20 Mg Tab 2 TAB PO DAILY for 5 Days, #10 TAB Prov: Scott Cueva PA-C 06/14/17 Hydrocodone/Acetaminophen 5MG/325MG ([place] 5MG/325MG) Tab 1-2 TABLET PO Q6 Y for Pain, #20 TAB For Initial Treatment Prov: Scott Cueva PA-C 06/14/17 Atorvastatin (LIPITOR) 40 Mg Tab 40 MG PO DAILY for 7 Days, #7 TAB Prov: Scott Cueva PA-C 06/14/17 Referrals Alfredo De León M.D. Sefter, John C., DO Forms HOME CARE DOCUMENTATION FORM, IMPORTANT VISIT INFORMATION Patient Instructions My [facility] Additional Instructions You were seen and evaluated today on an emergency basis only. This is not a substitute for, or an effort to provide, complete comprehensive medical care. It is not possible to recognize and treat all injuries or illnesses in a single emergency department visit. For this reason it is recommended that you followup with Dr. De León's office next week as scheduled for recheck. [place] (hydrocodone/acetaminophen) 5/325 mg ONE or TWO every 6 hours as needed for worsening breakthrough pain. Do not drink or drive on [place]. This medication will likely make you tired. Do not take [place] and Tylenol at the same time as both contain acetaminophen. [place] may cause constipation. You may wish to take an [id number] stool softener like Colace if this occurs. Take prednisone as prescribed for the next few days Decrease your Lipitor from 80 mg at bed to [address] De León may wish to alter this next week. You may wish to follow with Dr. Carbajal, orthopedic mapping specialist, for care regarding your neck. You are welcome to return to the emergency department anytime with new, worsening, or concerning symptoms. Problem Qualifiers
== END 2017-06-14 07:35 | disposition home or self-care (01) ==
LOC: EDBD 03:36 → C.EDB 03:38
DX: R20.2 Paresthesia of skin (principal); I44.0 Atrioventricular block, first degree; R53.1 Weakness; R20.0 Anesthesia of skin; M79.671 Pain in right foot; Z79.02 Long term (current) use of antithrombotics/antiplatelets; Z79.82 Long term (current) use of aspirin; Z79.899 Other long term (current) drug therapy; Z82.49 Family history of ischemic heart disease and other diseases of the circulatory system

== ENCOUNTER → 2017-07-20 | Outpatient (CLI) | payer OTHER ==
[~2017-07-20] MED LIST changes: +ATOR-24 PO; +HYDR-5688 PO; +LPT/40 PO; +PRED20TA2 PO
[2017-07-20 11:04] LABS: HEMOGLOBIN A1C 5.1 % (4.5-5.6)
[2017-07-20 11:24] LABS: ALBUMIN 2.8 gm/dl (3.4-5.0); ALT/SGPT 23 U/L (12-78); AST/SGOT 13 U/L (15-37); BLOOD UREA NITROGEN 18 mg/dl (7-18); CALCIUM 8.5 mg/dl (8.5-10.1); CARBON DIOXIDE 24 mmol/L (21-32); CREATININE 0.49 mg/dl (0.60-1.40); GLUCOSE 108 mg/dl (70-99); SODIUM 138 mmol/L (136-145)
[2017-07-20 11:32] LABS: ALKALINE PHOSPHATASE 81 U/L (45-117); CHOLESTEROL 138 mg/dl (0-200); LDL CHOLESTEROL CALCULATED 93 mg/dl; TOTAL PROTEIN 6.3 gm/dl (6.4-8.2)
[2017-07-24 17:37] LABS: ANA SCREEN TC 249X NEGATIVE (NEGATIVE); VITAMIN B6** TC 926 34.9 ng/mL (2.1-21.7)
--- NOTE | 2017-08-02 10:03 | CODING QUERY MEDICAL NECESSITY ---
CQSUPPORTING DIAGNOSIS NEEDED A supporting diagnosis is required for the test/procedure performed on this patient in order for us to be reimbursed by the patient's insurance. Please provide a supporting diagnosis for the following test/procedure listed below next to the test name along with your signature. *If there is no additional diagnosis for this patient that would support the following test/procedure please document that below next to the test/procedure. Test(s)/Procedure(s) that require a supporting diagnosis: DOS 07/20/17 VITAMIN D TEST VITAMIN B12 AND B6 TEST VITAMIN E TEST Provider Signature: Date: Thank you [facility] Information Management Once completed, please kindly fax back to [phone] For questions please call [phone]
== END | disposition home or self-care (01) ==
LOC: C.LAB 09:45
PROVIDERS: ATTEND Psychiatry & Neurology Neurology
DX: M62.81 Muscle weakness (generalized) (principal); R73.09 Other abnormal glucose; E78.5 Hyperlipidemia, unspecified

== ENCOUNTER → 2017-08-20 | Outpatient (CLI) | payer OTHER ==
[~2017-08-20] MED LIST changes: -ATOR-24 PO; -LPT/40 PO; -PRED20TA2 PO
--- NOTE | 2017-08-20 20:53 | DIAGNOSTIC IMAGING REPORT ---
MRI CERVICAL WITHOUT CONTRAST CLINICAL HISTORY: G95.9 Cervical myelopathy. HAND AND FOOT NUMBNESS. MUSCLE WEAKNESS. TECHNIQUE: Sagittal and axial T1, T2 and STIR images were obtained. COMPARISON STUDY: June 14, 2017 CT scan Patient was cautioned pelvic, and unable to complete the examination. Oblique sagittal T2-weighted images were not acquired. Examination consists of sagittal T1, sagittal T2, sagittal STIR, and limited axial T2-weighted images The examination is compromised due to patient motion artifact There are no suspicious areas of marrow replacement. No intrinsic cervical cord lesions are visualized. There is a disc bulge and ligamentous hypertrophy at the C3-4 level with secondary mild to moderate spinal stenosis. There are multilevel spondylitic changes with mild multilevel disc bulges. There is equivocal minimal increased signal within the cervical cord at the C3-4 level. A mild myelopathy cannot be excluded. T2-weighted images demonstrate a linear focus of increased signal within the cord at the superior C5 level. This may be artifactual. There is a moderate right posterior central disc protrusion at the C5-6 level with secondary cord deformity IMPRESSION: 1. Limited study from a technical standpoint. The patient was unable to complete the entire study 2. Disc bulge ligamentous hypertrophy and mild to moderate spinal stenosis at the C3-4 level. A minimal myelopathy at this level cannot be excluded 3. Linear focus within the spinal cord at the superior C5 level. This may be artifactual. 4. Moderate right posterior central disc protrusion at the C5-6 level with secondary cord deformity Electronically signed by: Thomas Mccord M.D. 08/20/2017 8:51 PM Dictated Date/Time: 08/20/2017 8:45 PM
== END | disposition home or self-care (01) ==
LOC: C.MRI 19:50
PROVIDERS: ATTEND Physician Assistant
DX: G95.9 Disease of spinal cord, unspecified (principal); M50.21 Other cervical disc displacement, high cervical region; M24.28 Disorder of ligament, vertebrae; M48.02 Spinal stenosis, cervical region; M50.222 Other cervical disc displacement at C5-C6 level

== ENCOUNTER 2017-09-02 14:15 | Emergency (ER) | payer OTHER ==
[~2017-09-02] VITALS: Ht 167.6 cm; Wt 123.3 kg
[2017-09-02 14:24] VITALS: TEMP 36.6; O2SAT 94; Ht 167.6 cm; Wt 123.3 kg
[2017-09-02] MEDS ORDERED: SODIUM CHLORIDE 0.9% 1000ML 1,000 ML IV SCH (14:35)
[2017-09-02] MEDS ORDERED: LORAZEPAM 2 MG/ML 1 ML VIAL IV STA (14:46)
[2017-09-02 15:17] LABS: BASO % 0.2 %; BASO ABS # 0.02 K/uL (0-0.2); EOS % 1.4 %; EOS ABS # 0.14 K/uL (0-0.5); HEMATOCRIT 45.6 % (42-52); HEMOGLOBIN 16.2 g/dL (14.0-18.0); IG# 0.02 K/uL (0.00-0.02); LYMPH ABS # 0.58 K/uL (1.2-3.4); MEAN CELL VOLUME 88.9 fL (80-100); MEAN CORPUSCULAR HEMOGLOBIN 31.6 pg (25-34); MEAN CORPUSCULAR HGB CONC 35.5 g/dl (32-36); MEAN PLATELET VOLUME 10.6 fL (7.4-10.4); MONO % 9.3 %; NEUT % 82.9 %; NEUT ABS # 8.06 K/uL (1.4-6.5); PLATELET COUNT 163 K/uL (130-400); RED CELL DISTRIBUTION WIDTH CV 13.4 % (11.5-14.5); RED CELL DISTRIBUTION WIDTH SD 44.1 fL (36.4-46.3); WHITE BLOOD COUNT 9.72 K/uL (4.8-10.8)
[2017-09-02 15:26] LABS: PTT PATIENT 25.4 SECONDS (21.0-31.0)
[2017-09-02 15:35] LABS: BLOOD UREA NITROGEN 19 mg/dl (7-18); CALCIUM 8.6 mg/dl (8.5-10.1); CARBON DIOXIDE 28 mmol/L (21-32); CREATININE 0.63 mg/dl (0.60-1.40); GLUCOSE 112 mg/dl (70-99); POTASSIUM 4.1 mmol/L (3.5-5.1); SODIUM 139 mmol/L (136-145)
[2017-09-02] MEDS ORDERED: LISI-729 PO (15:39)
[2017-09-02] MEDS ORDERED: IBUP-1050 PO (15:39)
[2017-09-02] MEDS ORDERED: CLOP1TAB15 PO (15:39)
[2017-09-02 15:40] LABS: CKMB 2.2 ng/ml (0.5-3.6)
[2017-09-02] MEDS ORDERED: ONDANSETRON INJ 2 MG/ML 2 ML VIAL IV STA (16:31)
--- NOTE | 2017-09-02 16:42 | EMERGENCY ROOM VISIT NOTE ---
History Report prepared by Juan: Toi Kapadia Under the Supervision of: Dr. Alden Gapsar M.D. First contact with patient: 14:26 Stated Complaint: FALL History of Present Illness The patient is a 67 year old male who presents to the Emergency Room with complaints of worsening right-sided numbness and tingling over the past 3 months. Per the nursing staff, the patient was scheduled for pre-op testing before a left hip replacement, but during the testing, an abnormal EKG was found to the point where the patient had to get 2 cardiac stents placed on June 04 of this year. The patient states that ever since the stent placement, he has had numbness and tingling of his fingertips and hands bilaterally. He adds that he has had the decreased sensation more-so on his right arm and right leg. He has some on the left. The patient has been noted to have a weaker grasp on the right. He went to a neurologist 2 weeks ago, and had an MRI of his neck here. The doctors wanted to do an MRI of his head but insurance would not cover it. The patient was diagnosed with disc protrusion in the C5-C6 level, and spinal stenosis in the C3-C4 level. The doctors wanted to do surgery, but the patient was on Plavix for the stents. He has been having worsening balance, and has had some falls over the past few weeks. The patient notes that ever since he has started falling, he has had numbness and tingling over the right chest area. He then fell today in the bathroom. The patient says that it was a controlled fall and he does not think he hurt anything on the fall. The patient notes that he did not pass out, and did not feel like he was going to pass out. He has been using a gait belt over the past few weeks. He has been also using a walker. The patient notes that he was taken off of his Lipitor recently. He is an occasional former smoker. Pt denies LOC, headache, fevers, chills, diaphoresis, visual changes, neck pain, chest pain, breathing difficulties, nausea, vomiting, abdominal pain, new back pain, melena, hematochezia, urinary symptoms, lymphadenopathy, leg pain, rash, or other complaints. Source of History: patient, nursing staff Onset: Over past 3 months Position: other (right side of body) Symptom Intensity: decreased sensation Quality: other (numbness and tingling) Timing: worsening Associated Symptoms: + numbness (over right chest area) Note: Associated symptoms: Weaker grasp on right. Worsening balance. Review of Systems See HPI for pertinent positives and negatives. A total of ten systems were reviewed and were otherwise negative. Past Medical & Surgical Medical Problems: (1) Coronary artery disease (2) Paresthesia and pain of both upper extremities (3) Spinal stenosis Surgical Problems: (1) H/O cardiac catheterization (2) H/O percutaneous transluminal coronary angioplasty Family History Heart disease Social History Smoking Status: Former Smoker Drug Use: none Housing Status: lives with family Current/Historical Medications Scheduled Aspirin (Aspirin Ec), 81 MG PO DAILY Clopidogrel (Plavix), 75 MG PO DAILY Ibuprofen (Advil), 400 MG PO BID Lisinopril (Prinivil), 5 MG PO DAILY Metoprolol Succinate (Metoprolol Succinate ER), 50 MG PO DAILY Scheduled PRN Nitroglycerin (Nitrostat), 0.4 MG SL UD PRN for Chest Pain Allergies Coded Allergies: No Known Allergies (Unverified , 06/14/17) Physical Exam Vital Signs Date Time Temp Pulse Resp B/P (MAP) Pulse Ox O2 Delivery O2 Flow Rate FiO2 09/02/17 22:31 91 22 161/95 95 09/02/17 20:24 91 22 161/95 95 Room Air 09/02/17 18:10 152/89 09/02/17 15:43 80 16 96 Room Air 09/02/17 14:27 72 09/02/17 14:24 94 Room Air 09/02/17 14:24 36.6 75 152/82 97 Room Air Physical Exam GENERAL: Awake, alert, well-appearing, in no distress HENT: Normocephalic, atraumatic. Oropharynx unremarkable. EYES: Normal conjunctiva. Sclera non-icteric. NECK: Supple. No nuchal rigidity. FROM. No masses. RESPIRATORY: Clear to auscultation. No wheezes. No rales. Normal respiratory effort. CARDIAC: Normal rate. Normal rhythm. No murmurs. No rubs. Extremities warm and well perfused. Pulses equal. No JVD. GI: Soft, non-distended. No tenderness to palpation. No rebound or guarding. No masses. RECTAL: Deferred. MUSCULOSKELETAL: Atraumatic. Chest examination reveals no tenderness. The back is symmetrical on inspection without obvious abnormality. There is no CVA tenderness to palpation. No joint edema. LOWER EXTREMITIES: Calves are equal size bilaterally and non-tender. Trace lower extremity edema. No discoloration. NEURO: Subjective numbness in the upper and lower extremities distally. 3.5/5 strength right upper extremity, 4/5 in left upper extremity. Difficult to assess drift secondary to chronic right shoulder issue. Difficulty with normal rapid alternating movements and unable to perform left heel to right souza secondary to chronic hip issues. Right hip to left souza was difficult for the patient to perform smoothly. SKIN: No rash or jaundice noted. Medical Decision & Procedures ER Provider Diagnostic Interpretation: MRI: Radiology results as stated below per my review and radiologist interpretation BRAIN WITHOUT CONTRAST HISTORY: Peripheral neuropathy. Mental status change. Extremity numbness, post-cath TECHNIQUE: Multiplanar multisequence MRI of the brain was performed without the use of contrast. COMPARISON STUDY: None. FINDINGS: There are no areas of restricted diffusion to suggest acute infarction. The midline structures are intact. The paranasal sinuses are clear. The mastoid air cells are clear. The ventricles and sulci are within normal limits for age. There is no mass, hematoma, midline shift. The major vascular flow-voids at the skull base are well maintained. Findings of mild chronic small vessel change throughout both cerebral hemispheres. Sella and parasellar regions are unremarkable. Internal artery canals are symmetric. IMPRESSION: Negative MRI brain for age. The above report was generated using voice recognition software. It may contain grammatical, syntax or spelling errors. Electronically signed by: Kostas Peck M.D. 09/02/2017 6:05 PM Dictated Date/Time: 09/02/2017 6:02 PM Laboratory Results 09/02/17 15:00 Red Blood Count 5.13, Mean Corpuscular Volume 88.9, Mean Corpuscular Hemoglobin 31.6, Mean Corpuscular Hemoglobin Concent 35.5, Mean Platelet Volume 10.6, Neutrophils (%) (Auto) 82.9, Lymphocytes (%) (Auto) 6.0, Monocytes (%) (Auto) 9.3, Eosinophils (%) (Auto) 1.4, Basophils (%) (Auto) 0.2, Neutrophils # (Auto) 8.06, Lymphocytes # (Auto) 0.58, Monocytes # (Auto) 0.90, Eosinophils # (Auto) 0.14, Basophils # (Auto) 0.02 09/02/17 15:00 Test 09/02/17 14:35 09/02/17 15:00 09/02/17 18:12 09/02/17 20:09 Erythrocyte Sedimentation Rate 2 mm/hr (0-14) White Blood Count 9.72 K/uL (4.8-10.8) Red Blood Count 5.13 M/uL (4.7-6.1) Hemoglobin 16.2 g/dL (14.0-18.0) Hematocrit 45.6 % (42-52) Mean Corpuscular Volume 88.9 fL (80-100) Mean Corpuscular Hemoglobin 31.6 pg (25-34) Mean Corpuscular Hemoglobin Concent 35.5 g/dl (32-36) Platelet Count 163 K/uL (130-400) Mean Platelet Volume 10.6 fL (7.4-10.4) Neutrophils (%) (Auto) 82.9 % Lymphocytes (%) (Auto) 6.0 % Monocytes (%) (Auto) 9.3 % Eosinophils (%) (Auto) 1.4 % Basophils (%) (Auto) 0.2 % Neutrophils # (Auto) 8.06 K/uL (1.4-6.5) Lymphocytes # (Auto) 0.58 K/uL (1.2-3.4) Monocytes # (Auto) 0.90 K/uL (0.11-0.59) Eosinophils # (Auto) 0.14 K/uL (0-0.5) Basophils # (Auto) 0.02 K/uL (0-0.2) RDW Standard Deviation 44.1 fL (36.4-46.3) RDW Coefficient of Variation 13.4 % (11.5-14.5) Immature Granulocyte % (Auto) 0.2 % Immature Granulocyte # (Auto) 0.02 K/uL (0.00-0.02) Prothrombin Time 10.9 SECONDS (9.0-12.0) Prothromb Time International Ratio 1.0 (0.9-1.1) Activated Partial Thromboplast Time 25.4 SECONDS (21.0-31.0) Partial Thromboplastin Ratio 1.0 Anion Gap 6.0 mmol/L (3-11) Est Creatinine Clear Calc Drug Dose 139.0 ml/min Estimated GFR () 117.4 Estimated GFR (Non- 101.3 BUN/Creatinine Ratio 29.7 (10-20) Calcium Level 8.6 mg/dl (8.5-10.1) Magnesium Level 2.0 mg/dl (1.8-2.4) Total Creatine Kinase 63 U/L (39-308) Creatine Kinase MB 2.2 ng/ml (0.5-3.6) Creatine Kinase MB Ratio 3.5 (0-3.0) Troponin I < 0.015 ng/ml (0-0.045) C-Reactive Protein < 0.29 mg/dl (0-0.29) Urine Color YELLOW Urine Appearance CLEAR (CLEAR) Urine pH 5.0 (4.5-7.5) Urine Specific [place] 1.025 (1.000-1.030) Urine Protein NEG (NEG) Urine Glucose (UA) NEG (NEG) Urine Ketones 1+ (NEG) Urine Occult Blood NEG (NEG) Urine Nitrite NEG (NEG) Urine Bilirubin NEG (NEG) Urine Urobilinogen NEG (NEG) Urine Leukocyte Esterase NEG (NEG) Vitamin B12 Level 434 pg/mL (211-911) Lyme Disease IgG Antibody NEG (NEG) Lyme Disease IgM Antibody NEG (NEG) Laboratory results reviewed by me Medications Administered Medications (Trade) Dose Ordered Sig/Leonela Route Start Time Stop Time Status Last Admin Dose Admin Sodium Chloride 1,000 ml @ 50 mls/hr Q20H IV 09/02/17 14:35 09/02/17 22:52 DC 09/02/17 15:14 50 MLS/HR Lorazepam (Ativan Inj) 1 mg NOW STAT IV 09/02/17 14:46 09/02/17 14:47 DC 09/02/17 15:43 1 MG Ondansetron HCl (Zofran Inj) 4 mg NOW STAT IV 09/02/17 16:31 09/02/17 16:34 DC 09/02/17 16:42 4 MG ECG Per My Interpretation Indication: weakness Rate (beats per minute): 73 Rhythm: sinus rhythm Findings: 1st degree AV block, PVC, Q waves (Inferior), other (nonspecific intraventricular block, nonspecific ST) Change: no significant change (from pre-hospital EKG which showed normal sinus rhythm at 80 bpm with same findings as above) ED Course 1430: The patient was evaluated in room A10. A complete history and physical exam was performed. 1435: NSS 1000 ml @ 50 mls/hr IV. 1446: Ativan Inj 1 mg IV. 1624: I reevaluated the patient and he is doing okay. I will order nausea medication. 1631: Zofran Inj 4 mg IV. 183: I discussed the patient with Dr. Katerin Jacome [facility] neurology. 185: Upon reexamination, the patient was resting. I discussed the test results and treatment plan with him. The patient will be evaluated for further management. 1924: I discussed the patient with Dr. Suresh Jacome [facility] food demonstrator - she will evaluate the patient for further treatment. 2119: Medicine saw the patient, and talked with him about following up as an outpatient, and he feels comfortable with that. 2128: I reevaluated the patient. Discussed results and discharge instructions: he verbalized understanding and agreement. The patient is ready for discharge. Medical Decision Prior records/ancillary studies reviewed and summarized above. Nursing notes reviewed and agree them. Additional history obtained from family.. The patient's history was concerning for weakness, fall, and numbness. Differential diagnosis: Etiologies such as CVA, TIA, myelopathy, spinal cord pathology, metabolic, infection, hypo/hyperglycemia, electrolyte abnormalities, cardiac sources, intracerebral event, toxicologic, neurologic, as well as others were entertained. Physical examination: As above. ER treatment provided: IV Lock IV Zofran due to the patient developing nausea and vomiting in the ER IV Ativan IV saline hydration On reassessment the patient felt better. Diagnostics interpretation by me: ECG: Normal as above. The labs revealed an unremarkable CBC and chemistry panel. Cardiac markers negative. Urinalysis negative. Inflammatory markers negative. Vitamin B12 negative. Lyme titer negative. Imaging studies: MRI as above. Patient does not feel that he is doing well at home at this point. I do not have a direct answer to his neurologic issues as his workup above was unrevealing. He was in the emergency department for an extended period getting this workup done and was stable. He actually noted feeling somewhat better than he did earlier today. Consultation: Consultation was placed with Dr. Conklin of neurology. She recommended inflammatory markers and checking B12 as well as Lyme. This was done was negative. I noted that the patient was not doing well at home and discussed the possibility of having him in the hospital with further workup. She did not feel this was unreasonable initially. A consultation was placed with the hospitalist Dr. Prince. The case was discussed and diagnostics were reviewed. The patient was evaluated in the ER for further treatment. After internal medicine evaluation by Dr. Prince and Dr. Eid they recommended continued management as an outpatient as they felt there was no acute intervention required. I met with the patient and his multiple times. I did ask for internal medicine to consult with neurology. After this consultation they still recommended discharge. I did have case management evaluate the situation for an appointment with neurology. They did meet with the patient and stated that they would like to set up the appointment themselves. If they have any issues they will call back to the ER for assistance. The exact etiology of the patient's symptoms and I did stress that if he worsens or develops new symptoms that he should come back to the emergency department right away for reevaluation. Medication Reconcilliation Current Medication List: was personally reviewed by me Blood Pressure Screening Patient's blood pressure: Elevated blood pressure Referred to hospitalist. Consults Time Called: 1829 Consulting Physician: Dr. Katerin BOOTHE neurology Returned Call: 1835 I discussed the patient with Dr. Katerin BOOTHE neurology Additional Consults: Time Called: 1919 Consulted Physician: Dr. Suresh BOOTHE food demonstrator Returned Call: 1924 Additional Comments: I discussed the patient with Dr. Suresh BOOTHE food demonstrator - she will evaluate the patient for further treatment. Impression Primary Impression: Weakness Additional Impressions: Paresthesia and pain of both upper extremities Paresthesia of both legs Scribe Attestation The scribe's documentation has been prepared under my direction and personally reviewed by me in its entirety. I confirm that the note above accurately reflects all work, treatment, procedures, and medical decision making performed by me. Departure Information Dispostion Home / Self-Care Referrals Jerry Stephens D.O. (PCP) Additional Instructions Follow-up with Dr. Conklin's office tomorrow. Also, follow-up with Dr. Stephens's office tomorrow. Case management will be contacting Dr. Conklin's office to assist with a follow-up appointment. Rest and drink plenty of fluids. Continue current medications. Return to the emergency department for worsening weakness, falls, fever, vomiting, worsening of your condition, or any concerns. Problem Qualifiers
--- NOTE | 2017-09-02 18:07 | DIAGNOSTIC IMAGING REPORT ---
BRAIN WITHOUT CONTRAST HISTORY: Peripheral neuropathy. Mental status change. Extremity numbness, post-cath TECHNIQUE: Multiplanar multisequence MRI of the brain was performed without the use of contrast. COMPARISON STUDY: None. FINDINGS: There are no areas of restricted diffusion to suggest acute infarction. The midline structures are intact. The paranasal sinuses are clear. The mastoid air cells are clear. The ventricles and sulci are within normal limits for age. There is no mass, hematoma, midline shift. The major vascular flow-voids at the skull base are well maintained. Findings of mild chronic small vessel change throughout both cerebral hemispheres. Sella and parasellar regions are unremarkable. Internal artery canals are symmetric. IMPRESSION: Negative MRI brain for age. The above report was generated using voice recognition software. It may contain grammatical, syntax or spelling errors. Electronically signed by: Kostas Peck M.D. 09/02/2017 6:05 PM Dictated Date/Time: 09/02/2017 6:02 PM
--- NOTE | 2017-09-02 21:14 | Medical Consult ---
Consultation Date of Consultation: September 02, 2017. Attending Physician: Dr. Diane Prince Reason for Consultation: Persistent neuropathy. Weakness. History of Present Illness 67 year old male with pMHx CAD s/p NEIL x 2 (06/17) on aspirin and clopidogrel, HTN, chronic hip issues, and known motor and sensory upper extremity neuropathy presents to ED today with weakness in hands bilaterally and also in the lower extremities. He had fallen over due to sensation of leg giving out, without LOC or head trauma and was unable to use upper extremities to lift himself back up. To avoid injury to in attempts to help him up, EMS was called and multiple EMS providers carried via to stretcher to the ambulance. He did note sensory tingling across the chest which has also resolved now. Since being in hospital, patient has noted improved lower extremity strength and resolution of sensory deficits in right lower extremity. He denies recurrent falls or recent trauma. He has no saddle paresthesias, incontinence of urine or stool. He otherwise denies fevers/chills, headaches, CP, palpitations, dyspnea, abdominal pain, new lower extremity swelling or rashes. He is tolerating diet without nausea or vomiting, ambulates minimally with walker, and voiding and stooling appropriately. Outpatient records reviewed. Patient is seen by neurologist, Dr. Vera and recent EMG confirmed bilateral carpal tunnel syndrome affecting motor and sensory components, without denervation as well as polyneuropathy and chronic radiculopathy of left arm. No right arm or left leg radiculopathy or obvious myopathy. Dr. Vera believes he has progressive paresthesias and weakness due to probable cervical myelopathy. Labs done 6 weeks ago revealed negative Lyme antibodies, normal HbA1c, and normal vitamin B12, TSH. CPK, Mg+ levels. CRP and ESR were elevated at that time, but noted to be normalized today. MRI imaging last week confirmed disc protrusion in the C5-C6 level, and spinal stenosis in the C3-C4 level. Patient subsequently saw a neurosurgeon, who recommended surgery, but given his current use of dual-antiplatelets, this is not an option. His mastic sprayer, Dr. Brand says discontinuing clopidogrel may be discussed further at the 6 month patricia. Patient is involved in home PT services, and notes feeling exhausted/weak post sessions. With 1-2 days of rest he feels better. ROS is unremarkable except as noted above. Past Medical/Surgical History Medical Problems: (1) Paresthesia and pain of both upper extremities Status: Acute (2) Paresthesia of both legs Status: Acute (3) Weakness Status: Acute Family History Heart disease Social History Smoking Status: Former Smoker Drug Use: none Housing Status: lives with family Allergies Coded Allergies: No Known Allergies (Unverified , 06/14/17) Current Inpatient Medications Current Inpatient Medications Medications (Trade) Dose Ordered Sig/Leonela Route Start Time Stop Time Status Last Admin Dose Admin Sodium Chloride 1,000 ml @ 50 mls/hr Q20H IV 09/02/17 14:35 10/02/17 14:34 09/02/17 15:14 50 MLS/HR Physical Exam Date Time Temp Pulse Resp B/P (MAP) Pulse Ox O2 Delivery O2 Flow Rate FiO2 09/02/17 20:24 91 22 161/95 95 Room Air 09/02/17 18:10 152/89 09/02/17 15:43 80 16 96 Room Air 09/02/17 14:27 72 09/02/17 14:24 94 Room Air 09/02/17 14:24 36.6 75 152/82 97 Room Air General Appearance: WD/WN, no apparent distress Head: normocephalic, atraumatic Eyes: normal inspection, sclerae normal ENT: hearing grossly normal, pharynx normal Neck: supple Respiratory/Chest: normal breath sounds, no respiratory distress, no accessory muscle use Cardiovascular: regular rate, rhythm, no murmur Abdomen/GI: normal bowel sounds, non tender, soft Back: normal inspection Extremities/Musculoskelatal: no calf tenderness, no pedal edema Neurologic/Psych: occupational therapy aide II-XII nml as tested, alert, normal mood/affect, oriented x 3, + motor weakness (UE 3-4/5 on left, 4/5 on right. LE symmetrical 4 -5/5), + sensory deficit (subjective sensory deficits worse on left hand) Skin: normal color, warm/dry, no rash Laboratory Results Last 24 Hours Test 09/02/17 14:35 09/02/17 15:00 09/02/17 18:12 09/02/17 20:09 Erythrocyte Sedimentation Rate 2 mm/hr White Blood Count 9.72 K/uL Red Blood Count 5.13 M/uL Hemoglobin 16.2 g/dL Hematocrit 45.6 % Mean Corpuscular Volume 88.9 fL Mean Corpuscular Hemoglobin 31.6 pg Mean Corpuscular Hemoglobin Concent 35.5 g/dl Platelet Count 163 K/uL Mean Platelet Volume 10.6 fL Neutrophils (%) (Auto) 82.9 % Lymphocytes (%) (Auto) 6.0 % Monocytes (%) (Auto) 9.3 % Eosinophils (%) (Auto) 1.4 % Basophils (%) (Auto) 0.2 % Neutrophils # (Auto) 8.06 K/uL Lymphocytes # (Auto) 0.58 K/uL Monocytes # (Auto) 0.90 K/uL Eosinophils # (Auto) 0.14 K/uL Basophils # (Auto) 0.02 K/uL RDW Standard Deviation 44.1 fL RDW Coefficient of Variation 13.4 % Immature Granulocyte % (Auto) 0.2 % Immature Granulocyte # (Auto) 0.02 K/uL Prothrombin Time 10.9 SECONDS Prothromb Time International Ratio 1.0 Activated Partial Thromboplast Time 25.4 SECONDS Partial Thromboplastin Ratio 1.0 Sodium Level 139 mmol/L Potassium Level 4.1 mmol/L Chloride Level 105 mmol/L Carbon Dioxide Level 28 mmol/L Anion Gap 6.0 mmol/L Blood Urea Nitrogen 19 mg/dl Creatinine 0.63 mg/dl Est Creatinine Clear Calc Drug Dose 139.0 ml/min Estimated GFR () 117.4 Estimated GFR (Non- 101.3 BUN/Creatinine Ratio 29.7 Random Glucose 112 mg/dl Calcium Level 8.6 mg/dl Magnesium Level 2.0 mg/dl Total Creatine Kinase 63 U/L Creatine Kinase MB 2.2 ng/ml Creatine Kinase MB Ratio 3.5 Troponin I < 0.015 ng/ml C-Reactive Protein < 0.29 mg/dl Urine Color YELLOW Urine Appearance CLEAR Urine pH 5.0 Urine Specific [place] 1.025 Urine Protein NEG Urine Glucose (UA) NEG Urine Ketones 1+ Urine Occult Blood NEG Urine Nitrite NEG Urine Bilirubin NEG Urine Urobilinogen NEG Urine Leukocyte Esterase NEG Assessment & Plan 67 year old male with pMHx CAD s/p NEIL x 2 (06/17) on aspirin and clopidogrel, HTN, chronic hip issues, and known motor and sensory upper extremity neuropathy (bilateral carpal tunnel syndrome affecting motor and sensory components, without denervation as well as polyneuropathy and chronic radiculopathy of left arm) and cervical stenosis and herniation confirmed on MRI. Dr. Conklin called and findings discussed. She is in agreement that at this time, given resolution of patient symptoms and non concerning findings on diagnostics, would recommend continued outpatient care. - Patient is already scheduled to see Dr. Vera in 3 weeks. This can be expedited if patient is concerned. - If lower extremity symptoms return, can consider outpatient imaging of the lower spine - there is a possibility of stenosis or other degenerative changes in the lower spine as well. - Patient should continue physical therapy and is advised for stretching (ex. resistance bands) as well as muscle building activities (ex. walking, aqua fit) - A trial of gabapentin pr pregabalin can be considered for painful neuropathy, although he describes none currently, only numbness and tingling. Resident Tracking Resident Involvement: Resident Care Provided Care Provided: [facility] Medicine History Patient seen and examined, chart reviewed, case discussed with Dr. Eid and I agree with her assessment and plan as documented above. Briefly, patient is a 67yo C male with history of CAD s/p NEIL x 2, chronic progressive motor and sensory neuropathy presenting with worsening neuropathy and loss of balance. He denies back pain, trauma, fevers or chills, denies saddle anesthesia, loss of bowel/bladder control. MRI brain negative. His symptoms improved during his time in ER. On physical exam he is afebrile, hemodynamically stable, in NAD. Skin is warm, dry and intact with no rashes or lesions, HEENT unremarkable , Heart +S1/S2, regular, no m/r/g, Lungs CTA, abdomen soft, NT/ND, extremities with palpable pulses and no edema, Neuro with sensation intact, MS mildly diminished in LUE 4+5, strength symmetrical in bilateral LEs. Labs and images reviewed, notable for negative inflammatory markers, negative Lyme, negative MRI Assessment: 67yo C male with neuropathy presenting with progressive symptoms, loss of balance. Patient has no alarm symptoms at this time. His symptoms are not consistent with cord compression, cauda equina or myelitis. He is presently being seen by Neurology and being worked up for progressive polyneuropathy. Patient is stable for discharge home from the ER. He is to continue outpatient workup for neuropathy. To continue PT and OT as ordered. Remainder of plan as above.
[2017-09-02 22:31] VITALS: BP 161/95; PULSE 91; O2SAT 95
== END 2017-09-02 22:32 | disposition home or self-care (01) ==
LOC: EDBD 14:15 → C.EDA 14:16
DX: R20.2 Paresthesia of skin (principal); M79.601 Pain in right arm; M79.602 Pain in left arm; W19.XXXA Unspecified fall, initial encounter; R53.1 Weakness; R11.2 Nausea with vomiting, unspecified; R60.0 Localized edema; I25.10 Atherosclerotic heart disease of native coronary artery without angina pectoris; Z87.891 Personal history of nicotine dependence; Z79.82 Long term (current) use of aspirin; Z79.02 Long term (current) use of antithrombotics/antiplatelets; Z82.49 Family history of ischemic heart disease and other diseases of the circulatory system

== ENCOUNTER 2024-11-01 21:22 | Inpatient (IN) ==
[2024-11-01 21:46] LABS: Hematocrit (blood only) 46.8 % (42.0-52.0); Hemoglobin 15.2 g/dl (14.0-18.0); Mean Corpuscular Hemoglobin 30.2 pg (25.0-34.0); Mean Corpuscular Volume 93.0 fL (80.0-100.0); Platelet Count 136 K/uL (130-400); RDW Standard Deviation 48.9 fL (36.4-46.3); Red Blood Count 5.03 M/uL (4.70-6.10); White Blood Count 14.53 K/ul (4.8-10.8)
--- NOTE | 2024-11-01 21:47 | Emergency Department Note ---
Impression & Plan Febrile illness, acute, Bilateral edema of lower extremity, SOB (shortness of breath), Acute Lyme disease ED Provider Note NAME: NOELLE PLEITEZ AGE: 74 SEX: Male INFORMANT: Patient ED PROVIDER(S): Alden Gaspar MD CHIEF COMPLAINT: Illness PLAN: Disposition: Admitted Outpatient prescription management: none Referral: None MEDICAL DECISION MAKING: Patient presented because illness. Workup was initiated. Patient had a leukocytosis on CBC. Chemistry panel was unremarkable. BNP mildly elevated. Cardiac troponin negative. Patient had cultures obtained. Tickborne testing and bio fire performed. Bio fire was negative. Patient had negative anaplasmosis smear. His Lyme testing did come back positive. Patient was covered with IV Rocephin. Chest x-ray showed no evidence of pneumonia. Urinalysis was unremarkable. Mild CHF was noted on chest x-ray. Patient does have peripheral edema. Further evaluation and management in the hospital will be necessary. Consultation was made with the [facility] hospitalist service, Dr. Hawkins. Patient was evaluated in the ER and admitted for further management Care/management discussed with: staffing program manager, hospitalist Level of care consideration(s): After review of the information above and other included data, I feel the patient requires escalation of care to admission Triage Nursing notes: reviewed and agree them. Vital Signs: reviewed and remarkable for no significant abnormalities Additional History obtained from: none Chronic Medical/Social Conditions affecting care: CAD Prior/ Outside/ External records reviewed: none Differential Diagnosis: Infection, dehydration, metabolic abnormality, hypo/hyperglycemia, electrolyte disturbance, anemia, hypoxia, cardiac sources, intracerebral event, toxicologic, neurologic, as well as other pathologies. Diagnostics, independently interpreted by me: ECG: Twelve-lead ECG reveals a atrial sensed ventricular paced rhythm at 94 bpm. Cardiac Monitoring: Cardiac monitoring ordered by me: The patient was placed on continuous cardiac monitoring and observed. It revealed a paced rhythm at 87 per minute without ectopy or evidence of dysrhythmia. Medical decision rules: none Imaging studies: Chest x-ray. Findings: A chest x-ray was performed and revealed no pneumothorax, effusion, infiltrate, free air under the diaphragm, or wide mediastinum. Impression: Mild pulmonary edema. HPI: 74 year old Male arrives for evaluation of illness. This started few days ago and is described as being feverish, chilled and feeling short of breath. The patient also notes the following associated symptoms, mild leg swelling which is slightly worse than prior. Patient does note a history of cardiac pacemaker and [place]. The patient has taken no medication for relieving factors. Patient denies any chest or abdominal pain. He did note some difficulty with urination last night. Pt denies LOC, headache, diaphoresis, visual changes, neck pain, chest pain, sick contact, nausea, vomiting, abdominal pain, back pain, melena, hematochezia, numbness, weakness, lymphadenopathy, rash, or other complaints.. PAST MEDICAL HISTORY: See Below, CAD, hypertension PAST SURGICAL HISTORY: See Below, pacemaker, catheterization SOCIAL HISTORY: See Below, HOME MEDICATIONS: See Below ALLERGIES: See Below VITALS: See Below PHYSICAL EXAMINATION: GENERAL: Awake, alert, mildly ill-appearing, in no distress HENT: Normocephalic, atraumatic. Oropharynx unremarkable. EYES: Normal conjunctiva. Sclera non-icteric. NECK: Inspection normal. Non-tender. Supple. No nuchal rigidity. FROM. No masses. RESPIRATORY: Clear to auscultation. No wheezes. No rales. Normal respiratory effort. CARDIAC: Normal rate. Normal rhythm. No murmurs. No rubs. Extremities warm and well perfused. Pulses equal. No JVD. GI: Soft, non-distended. No tenderness to palpation. No rebound or guarding. No masses. RECTAL: Deferred. MUSCULOSKELETAL: Atraumatic. Chest examination reveals no tenderness. The back is symmetrical on inspection without obvious abnormality. There is no CVA tenderness to palpation. No joint edema. LOWER EXTREMITIES: Calves are equal size bilaterally and non-tender. 2+ edema. No discoloration. NEURO: Normal sensorium. No sensory or motor deficits noted. SKIN: No rash or jaundice noted. PROCEDURES: none CRITICAL CARE: none OBSERVATION NOTE: none Past Med/Surg History Problem List (Updated 11/02/24 @ 02:07 by Alden Gaspar MD) Acute Lyme disease (Acute) SOB (shortness of breath) (Acute) Bilateral edema of lower extremity (Acute) Febrile illness, acute (Acute) Pre-op evaluation Lumbar spinal stenosis Chronic pain of right knee (Chronic) Situational anxiety (Chronic) Abnormal echocardiogram (Chronic) Arteriosclerosis of coronary artery (Chronic) Carpal tunnel syndrome, bilateral (Chronic) Dyslipidemia (Chronic) Hyperglycemia (Chronic) Idiopathic polyneuropathy (Chronic) Ischemic cardiomyopathy (Chronic) Low back pain (Chronic) Obesity (Chronic) HTN (hypertension) (Chronic) Paresthesia of both legs (Chronic) Coronary artery disease (Chronic) s/p PCI w/ 2 stents May 2017 Medical History Hx of non-ST elevation myocardial infarction (NSTEMI) 2018 [employer] current use of anticoagulant plavix History of cardiac arrhythmia currently on amiodarone, "med works well, and no longer seems to have this problem," ICD placed in 2020; f/u [facility] ICD (implantable cardioverter-defibrillator) in place 2020, [facility]; f/u [facility] gann History of ischemic cardiomyopathy 2017; f/u [facility] [place] Idiopathic polyneuropathy Hyperlipidemia Hypertension Surgical History History of cataract surgery right History of implantable cardioverter-defibrillator (ICD) placement 2020, [facility] [employer]; f/u [facility]dev gann History of total left hip replacement 2018, [facility] Hx of coronary angioplasty 2018, [facility]; f/u [facility] [place] Hx of fusion of cervical spine 05/26/18, [facility], C2-C5; ROM "is ok" History of cardiac cath 2018, NSTEMI, [facility], x2 stents (2 total caths in close proximity); f/u [facility] [place] Status post lumbar laminectomy 12/2020, [facility], "cleaned up the stenosis, no hardware placed"; L3-L5 Family History Brother Myocardial infarction Father Myocardial infarction Prostate cancer Other No pertinent family history Denies family history of Ovarian cancer Breast cancer Colorectal cancer Social History Smoking Status: Never smoker Second Hand Exposure: No; Do You Dip or Chew Tobacco: No; Hx Alcohol Use: No Hx Substance Use: No Preferred Language: Malawian Communication Ability: Effective Visual Impairment: No Limitations Hearing Ability: Normal Electronic 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 Required: No Beliefs That Will Affect Care: None marital status: Current Living Situation: Spouse Current Living Situation Comment: and 3 daughters current occupational status: employed Feels Safe at Home: Yes Childhood Exposure to Second-Hand Smoke: Yes Diet: regular Dental Care, Regularly: No Physical Activity Frequency: 3-4 Times per Week Seatbelt Use: always Sunscreen Use: Yes Assistive Devices: Glasses Allergies Allergies Allergy/AdvReac Type Severity Reaction Status Date / Time No Known Allergies Allergy Verified 10/29/23 07:06 Home Meds Home Medications Medication Instructions Recorded Confirmed lisinopril 5 mg tablet 5 mg PO QAM 01/27/18 11/02/24 nitroglycerin 0.4 mg sublingual 0.4 mg sublingual DIRECTED PRN 01/27/18 11/02/24 tablet Chest Pain acetaminophen 500 mg tablet 1,000 mg PO Q8H PRN fever or pain 11/10/18 11/02/24 aspirin 81 mg tablet,delayed 81 mg PO QAM 11/10/18 11/02/24 release clopidogrel 75 mg tablet 75 mg PO QAM 11/10/18 11/02/24 amiodarone 100 mg tablet 200 mg PO QAM 02/14/21 11/02/24 atorvastatin 20 mg tablet 20 mg PO QAM 02/14/21 11/02/24 metoprolol succinate 50 mg 50 mg PO QAM #90 tabs 02/14/21 11/02/24 tablet,extended release 24 hr cholecalciferol (vitamin D3) 25 1,000 units PO QAM 09/19/23 11/02/24 mcg (1,000 unit) capsule pregabalin 25 mg capsule 25 mg PO PM 11/02/24 11/02/24 Results & Data (ED) Vital Signs Vital Signs - 24 hr 11/01/24 21:33 11/01/24 21:35 11/01/24 21:35 Temperature 37.2 C Temperature Source Oral Pulse Rate 98 H 91 H 92 H Pulse Rate [Apical] Pulse Rhythm [Apical] Pulse Strength [Apical] Respiratory Rate 18 18 Respiratory Effort / Characteristics Labored Respiratory Depth Respiratory Pattern Blood Pressure 123/72 Blood Pressure Mean 89 Blood Pressure Position Sitting Pulse Oximetry 91 91 Oxygen Delivery Method Room Air Room Air Oxygen Flow Rate Sepsis Recent Fever Within 48 Hours Yes Sepsis New/Unexplained Change in Mental Status No Sepsis Action Taken by Nursing No Action Required 11/01/24 21:42 11/01/24 23:05 11/02/24 01:00 Temperature Temperature Source Pulse Rate Pulse Rate [Apical] 87 88 83 Pulse Rhythm [Apical] Regular Regular Pulse Strength [Apical] Normal Normal Respiratory Rate 17 24 Respiratory Effort / Characteristics Non-Labored Spontaneous Non-Labored Spontaneous Respiratory Depth Normal Normal Respiratory Pattern Regular Regular Blood Pressure Blood Pressure Mean Blood Pressure Position Pulse Oximetry 96 Oxygen Delivery Method Nasal Cannula Oxygen Flow Rate 2 Sepsis Recent Fever Within 48 Hours Sepsis New/Unexplained Change in Mental Status Sepsis Action Taken by Nursing Laboratory Data 11/01/24 21:29 11/01/24 21:29 Lab Results 11/01/24 11/01/24 11/01/24 Range/Units 21:29 21:31 21:32 WBC 14.53 H (4.8-10.8) K/ul RBC 5.03 (4.70-6.10) M/uL Hgb 15.2 (14.0-18.0) g/dl POC Hgb 15.6 (14.0-18.0) g/dl Hct 46.8 (42.0-52.0) % POC Hct 46 (42-52) % MCV 93.0 (80.0-100.0) fL MCH 30.2 (25.0-34.0) pg MCHC 32.5 (32.0-36.0) g/dL RDW Std Deviation 48.9 H (36.4-46.3) fL RDW Coeff of Ralph 14.4 (11.5-14.5) % Plt Count 136 (130-400) K/uL MPV 10.6 (9.4-12.4) fL Immature Gran % (Auto) 0.4 % Neut % (Auto) 92.3 % Lymph % (Auto) 2.3 % Norman % (Auto) 4.7 % Eos % (Auto) 0.0 % Baso % (Auto) 0.3 % Neut # (Auto) 13.41 H (1.40-6.50) K/uL Lymph # (Auto) 0.33 L (1.20-3.40) K/uL Norman # (Auto) 0.68 H (0.11-0.59) K/uL Eos # (Auto) 0.00 (0.00-0.50) K/uL Baso # (Auto) 0.05 (0.00-0.20) K/uL Immature Gran # (Auto) 0.06 (0.01-0.20) K/uL POC Sodium 138 (135-144) mmol/L Sodium 137 (136-145) mmol/L POC Potassium 4.3 (3.3-5.0) mmol/L Potassium 4.4 (3.5-5.1) mmol/L POC Chloride 103 (101-112) mmol/L Chloride 105 (98-107) mmol/L Carbon Dioxide 28 (21-32) mmol/L POC Total CO2 23 L (24-31) mmol/L Anion Gap 4 (3-11) POC Anion Gap 17.0 (16-25) mmol/L POC BUN 18 (7-18) mg/dl BUN 19 (6-23) mg/dl Creatinine 0.85 (0.6-1.4) mg/dl POC Creatinine 0.9 (0.6-1.3) mg/dl Est Cr Clr Drug Dosing 94.2 ml/min eGFR 90.62 BUN/Creatinine Ratio 22.4 H (10-20) Glucose 129 H (70-99(Fasting)) mg/dl POC Glucose (other) 130 H (70-99) mg/dl Lactate 1.5 (0.4-2.0) mmol/L Calcium 8.4 L (8.6-10.3) mg/dl POC Ioniz Calcium Nallely 1.16 (1.12-1.32) mmol/l Magnesium 1.5 L (1.7-2.4) mg/dl Total Bilirubin 0.7 (0.2-1.0) mg/dl AST 21 (13-39) U/L ALT 16 (7-52) U/L Alkaline Phosphatase 71 (34-104) U/L Troponin I High Sens 11.6 (0-20) pg/ml B-Natriuretic Peptide 341 H (0-100) pg/ml Total Protein 6.4 (6.0-8.3) gm/dl Albumin 3.2 L (3.4-5.0) gm/dl Globulin 3.2 (2.5-4.0) gm/dl Albumin/Globulin Ratio 1.0 (0.9-2) Procalcitonin 0.07 (0-0.5) ng/ml TSH 4.343 (0.300-4.500) uIu/ml Urine Color Urine Appearance (Clear) Urine pH (4.5-7.5) Ur Specific [place] (1.000-1.030) Urine Protein (Negative) Urine Glucose (UA) (Negative) Urine Ketones (Negative) Urine Blood (Negative) Urine Nitrite (Negative) Urine Bilirubin (Negative) Urine Urobilinogen (Negative) Ur Leukocyte Esterase (Negative) Urine Comment Adenovirus (PCR) Not Detected (NotDetected) Anaplasma Smear See Comment Babesia Smear See Comment B. pertussis DNA (PCR) Not Detected (NotDetected) B.parapertussis DNA PCR Not Detected (NotDetected) Lyme Disease Screen Positive H (Negative) Lyme Tier 2 IgG Confirm Positive H (Negative) Lyme Tier 2 IgM Confirm Negative (Negative) C. pneumoniae DNA (PCR) Not Detected (NotDetected) Coronavirus OC43 (PCR) Not Detected (NotDetected) Coronavirus HKU1 (PCR) Not Detected (NotDetected) Coronavirus 229E (PCR) Not Detected (NotDetected) SARS-CoV-2 (PCR) Not Detected (NotDetected) Coronavirus NL63 (PCR) Not Detected (NotDetected) Human Metapneumovir PCR Not Detected (NotDetected) Influenza Type A (PCR) Not Detected (NotDetected) Influenza Type B (PCR) Not Detected (NotDetected) M. pneumoniae (PCR) Not Detected (NotDetected) Parainfluenza 1 (PCR) Not Detected (NotDetected) Parainfluenza 2 (PCR) Not Detected (NotDetected) Parainfluenza 3 (PCR) Not Detected (NotDetected) Parainfluenza 4 (PCR) Not Detected (NotDetected) RSV (PCR) Not Detected (NotDetected) Entero/Rhino (PCR) Not Detected (NotDetected) 11/01/24 Range/Units 21:37 WBC (4.8-10.8) K/ul RBC (4.70-6.10) M/uL Hgb (14.0-18.0) g/dl POC Hgb (14.0-18.0) g/dl Hct (42.0-52.0) % POC Hct (42-52) % MCV (80.0-100.0) fL MCH (25.0-34.0) pg MCHC (32.0-36.0) g/dL RDW Std Deviation (36.4-46.3) fL RDW Coeff of Ralph (11.5-14.5) % Plt Count (130-400) K/uL MPV (9.4-12.4) fL Immature Gran % (Auto) % Neut % (Auto) % Lymph % (Auto) % Norman % (Auto) % Eos % (Auto) % Baso % (Auto) % Neut # (Auto) (1.40-6.50) K/uL Lymph # (Auto) (1.20-3.40) K/uL [place] # (Auto) (0.11-0.59) K/uL Eos # (Auto) (0.00-0.50) K/uL Baso # (Auto) (0.00-0.20) K/uL Immature Gran # (Auto) (0.01-0.20) K/uL POC Sodium (135-144) mmol/L Sodium (136-145) mmol/L POC Potassium (3.3-5.0) mmol/L Potassium (3.5-5.1) mmol/L POC Chloride (101-112) mmol/L Chloride (98-107) mmol/L Carbon Dioxide (21-32) mmol/L POC Total CO2 (24-31) mmol/L Anion Gap (3-11) POC Anion Gap (16-25) mmol/L POC BUN (7-18) mg/dl BUN (6-23) mg/dl Creatinine (0.6-1.4) mg/dl POC Creatinine (0.6-1.3) mg/dl Est Cr Clr Drug Dosing ml/min eGFR BUN/Creatinine Ratio (10-20) Glucose (70-99(Fasting)) mg/dl POC Glucose (other) (70-99) mg/dl Lactate (0.4-2.0) mmol/L Calcium (8.6-10.3) mg/dl POC Ioniz Calcium Nallely (1.12-1.32) mmol/l Magnesium (1.7-2.4) mg/dl Total Bilirubin (0.2-1.0) mg/dl AST (13-39) U/L ALT (7-52) U/L Alkaline Phosphatase (34-104) U/L Troponin I High Sens (0-20) pg/ml B-Natriuretic Peptide (0-100) pg/ml Total Protein (6.0-8.3) gm/dl Albumin (3.4-5.0) gm/dl Globulin (2.5-4.0) gm/dl Albumin/Globulin Ratio (0.9-2) Procalcitonin (0-0.5) ng/ml TSH (0.300-4.500) uIu/ml Urine Color Yellow Urine Appearance Clear (Clear) Urine pH 5.0 (4.5-7.5) Ur Specific [place] 1.016 (1.000-1.030) Urine Protein Negative (Negative) Urine Glucose (UA) Negative (Negative) Urine Ketones Negative (Negative) Urine Blood Negative (Negative) Urine Nitrite Negative (Negative) Urine Bilirubin Negative (Negative) Urine Urobilinogen Negative (Negative) Ur Leukocyte Esterase Negative (Negative) Urine Comment Adenovirus (PCR) (NotDetected) Anaplasma Smear Babesia Smear B. pertussis DNA (PCR) (NotDetected) B.parapertussis DNA PCR (NotDetected) Lyme Disease Screen (Negative) Lyme Tier 2 IgG Confirm (Negative) Lyme Tier 2 IgM Confirm (Negative) C. pneumoniae DNA (PCR) (NotDetected) Coronavirus OC43 (PCR) (NotDetected) Coronavirus HKU1 (PCR) (NotDetected) Coronavirus 229E (PCR) (NotDetected) SARS-CoV-2 (PCR) (NotDetected) Coronavirus NL63 (PCR) (NotDetected) Human Metapneumovir PCR (NotDetected) Influenza Type A (PCR) (NotDetected) Influenza Type B (PCR) (NotDetected) M. pneumoniae (PCR) (NotDetected) Parainfluenza 1 (PCR) (NotDetected) Parainfluenza 2 (PCR) (NotDetected) Parainfluenza 3 (PCR) (NotDetected) Parainfluenza 4 (PCR) (NotDetected) RSV (PCR) (NotDetected) Entero/Rhino (PCR) (NotDetected) Administered Medications Doxycycline Hyclate 100 mg/ (Dextrose) 100 mls @ 50 mls/hr IV NOW STA Stop: 11/02/24 02:31 Last Admin: 11/02/24 00:58 Dose: 50 mls/hr Documented By: BRUNA Discontinued Medications Magnesium Sulfate/Dextrose (Magnesium Sulfate / D5w) 1 gm in 100 mls @ 50 mls/hr IV ONE ONE Stop: 11/02/24 01:32 Last Admin: 11/02/24 00:41 Dose: 50 mls/hr Documented By: BRUNA Ceftriaxone Sodium (Rocephin) 2,000 mg in 50 mls @ 100 mls/hr IV NOW STA Stop: 11/02/24 00:02 Last Infusion: 11/02/24 01:21 Dose: Infused Documented By: Admin: 11/02/24 00:21 Dose: 100 mls/hr Documented By: BRUNA Imaging Data Radiologist's Impression: Chest X-Ray 11/01/24 21:26 Exam(s): XR CXR 1 VIEW EXAM: XR Chest, 1 View CLINICAL HISTORY: Reason for exam: weakness. TECHNIQUE: Frontal view of the chest. COMPARISON: 12/27/2020. FINDINGS: Lungs: There is mild pulmonary vascular congestion. No consolidation. Pleural space: There is eventration the right hemidiaphragm. No pleural effusion is noted. No pneumothorax. Heart: A pacemaker is again noted. The heart is enlarged.. Mediastinum: There is uncoiling of thoracic aorta.. Bones/joints: There are postoperative changes involving the spine.. IMPRESSION: Cardiomegaly with pulmonary vascular congestion may represent mild congestive heart failure. Electronically signed by: Connor Warner MD 11/02/24 01:40 AM Discharge Plan Visit Data Chief Complaint: Illness Stated Complaint: ILLNESS, FEVER, WEAK ED Provider: Alden Gaspar Discharge Problem: Febrile illness, acute, Bilateral edema of lower extremity, SOB (shortness of breath), Acute Lyme disease Patient Disposition: Admitted As Inpatient Condition: Fair Forms Stand Alone Forms: My [facility] Prescriptions Prescriptions: No Action acetaminophen 500 mg tablet 1,000 mg PO Q8H PRN (Reason: fever or pain) aspirin 81 mg tablet,delayed release (DR/EC) 81 mg PO QAM Patient Comments: 81 mg PO TAKE BID x 28 DAYS S/P HIP REPLACEMENT ON 11/07/18; clopidogrel 75 mg tablet 75 mg PO QAM metoprolol succinate 50 mg tablet extended release 24 hr 50 mg PO QAM Qty: 90 amiodarone 100 mg tablet 200 mg PO QAM atorvastatin 20 mg tablet 20 mg PO QAM lisinopril 5 mg tablet 5 mg PO QAM nitroglycerin 0.4 mg tablet, sublingual 0.4 mg Sublingual DIRECTED PRN (Reason: Chest Pain) cholecalciferol (vitamin D3) 1,000 unit capsule 1,000 units PO QAM pregabalin 25 mg capsule 25 mg PO PM Referrals Referrals: PCP,NO [Physician] -
[2024-11-01 22:05] LABS: Alanine Aminotransferase 16.0 U/L (7-52); Albumin Globulin Ratio 1.0 (0.9-2); Alkaline Phosphatase 71.0 U/L (34-104); Anion Gap 4.0 (3-11); Bilirubin,Total 0.7 mg/dl (0.2-1.0); Blood Urea Nitrogen 19.0 mg/dl (6-23); Calcium 8.4 mg/dl (8.6-10.3); Carbon Dioxide 28.0 mmol/L (21-32); Chloride 105.0 mmol/L (98-107); Creatinine Clr Calc Pharmacy 94.2 ml/min; Globulin 3.2 gm/dl (2.5-4.0); Glucose 129.0 mg/dl (70-99(Fasting)); Magnesium 1.5 mg/dl (1.7-2.4); Potassium 4.4 mmol/L (3.5-5.1); Sodium 137.0 mmol/L (136-145); Total Protein 6.4 gm/dl (6.0-8.3)
[2024-11-01 22:11] LABS: Appearance Urine Clear (Clear); Glucose Urine UA Negative (Negative)
[2024-11-01 22:20] LABS: Thyroid Stimulating Hormone 4.343 uIu/ml (0.300-4.500)
[2024-11-01 22:40] LABS: Chlamydia pneumoniae PCR Not Detected (NotDetected); Coronavirus 229E PCR Not Detected (NotDetected); Coronavirus CoV-2 (COVID19)PCR Not Detected (NotDetected); Coronavirus HKU1 PCR Not Detected (NotDetected); Coronavirus NL63 PCR Not Detected (NotDetected); Coronavirus OC43PCR Not Detected (NotDetected); Human Metapneumovirus PCR Not Detected (NotDetected); Parainfluenza Virus 1 PCR Not Detected (NotDetected); Parainfluenza Virus 2 PCR Not Detected (NotDetected); Parainfluenza Virus 3 PCR Not Detected (NotDetected); Parainfluenza Virus 4 PCR Not Detected (NotDetected); Respiratory Syncytial VirusPCR Not Detected (NotDetected); Rhinovirus/Enterovirus PCR Not Detected (NotDetected)
[2024-11-01 22:42] LABS: Immature Granulocytes # (auto) 0.06 K/uL (0.01-0.20); Immature Granulocytes % (auto) 0.4 %
[2024-11-02 00:05] LABS: Procalcitonin 0.07 ng/ml (0-0.5)
[2024-11-02] MEDS: cefTRIAXone SODIUM 2,000 MG/50 ML BAG IV STA (00:21)
[2024-11-02 00:31] LABS: Lyme Screen Rflx Confirmation Positive (Negative)
[2024-11-02] MEDS: MAGNESIUM SULFATE / D5W 1 GM/100 ML BAG IV ONE ×2 (00:41→03:53)
[2024-11-02] MEDS: DOXYCYCLINE HYCLATE 100 MG in DEXTROSE 5% MINI-B 100 ML IV STA (00:58)
[2024-11-02 01:15] LABS: Lyme Ab IgG 2nd Tier Confirm Positive (Negative); Lyme Ab IgM 2nd Tier Confirm Negative (Negative)
--- NOTE | 2024-11-02 01:23 | History & Physical Report ---
Date of Service November 02, 2024 Assessment & Plan (1) Febrile illness, acute: Plan: 74-year-old male with past medical history significant for dyslipidemia, prediabetes, congestive heart failure with reduced ejection fraction and diastolic dysfunction, history of ischemic cardiopathy, hypertension, history of CAD status post stent, history of V. tach, IVCD conduction defect, left bundle branch block, status post defibrillator, morbid obesity, osteoarthritis, who lives at home with his and ambulates with a walker comes because of fever and not feeling well. Patient says since last Saturday is not feeling well. Saturday did okay. On Saturday again he was not feeling well. Was feeling short of breath, having body aches, nauseous and had 3 bowel movements which were normal and was not getting better so EMS was called. For EMS he had temperature of 101.7 degrees. Denies any headache. Vision is okay. No runny nose. No sore throat. Has some cough. Appetite is okay. Micturating okay. Has swelling in the lower extremities which patient thinks is same as before, no increase in swelling as per patient. Hemodynamics are okay. Febrile illness acute Possible from Lyme disease Lyme screen is positive Patient says he is not surprised Lyme screen being positive and thinks he is exposed to ticks Possible also left lower extremity cellulitis though patient says the swelling and erythema nothing new Empirically on Rocephin and doxycycline Will follow-up confirmation for Lyme screen Will follow response Chronic CHF with low EF and atrial dysfunction EF was 20% on echo done in 07/2023 Patient not on diuretics at home Continue home metoprolol succinate Continue monitor for volume overload Has wheezing and lower extremity edema and shortness of breath Will do a dose of IV Lasix 20 mg and monitor History of V. tach Status post defibrillator On amiodarone CAD status post stents On metoprolol succinate, atorvastatin on Plavix and aspirin Hypertension On lisinopril, metoprolol succinate Will monitor Prediabetes Will follow HbA1c levels Hypomagnesia Will replace DVT prophylaxis Lovenox Disposition Med/telemetry Full code. History of Present Illness Chief Complaint: Illness Primary Care Provider: Sasha Peng, DO 74-year-old male with past medical history significant for dyslipidemia, prediabetes, congestive heart failure with reduced ejection fraction and diastolic dysfunction, history of ischemic cardiopathy, hypertension, history of CAD status post stent, history of V. tach, IVCD conduction defect, left bundle branch block, status post defibrillator, morbid obesity, osteoarthritis, who lives at home with his and ambulates with a walker comes because of fever and not feeling well. Patient says since last Saturday is not feeling well. Saturday did okay. On Saturday again he was not feeling well. Was feeling short of breath, having body aches, nauseous and had 3 bowel movements which were normal and was not getting better so EMS was called. For EMS he had temperature of 101.7 degrees. Denies any headache. Vision is okay. No runny nose. No sore throat. Has some cough. Appetite is okay. Micturating okay. Has swelling in the lower extremities which patient thinks is same as before, no increase in swelling as per patient. Hemodynamics are okay. Past medical history. As mentioned above. Past surgical history. Cardiac cath X2 with stents. Neck surgery. Left total hip replacement. Lower back surgery for stenosis. Cardiac defibrillator. Social history. . No smoking.. Alcohol rarely. No drug use. Family history. Brother had heart valve issues. Father had heart failure. Heart disease. Sister had heart disorder. Mother had stroke. Allergies Allergy/AdvReac Type Severity Reaction Status Date / Time No Known Allergies Allergy Verified 10/29/23 07:06 Home Medications Medication Instructions Recorded Confirmed Type lisinopril 5 mg tablet 5 mg PO QAM 01/27/18 11/02/24 History nitroglycerin 0.4 mg sublingual 0.4 mg sublingual DIRECTED PRN 01/27/18 11/02/24 History tablet Chest Pain acetaminophen 500 mg tablet 1,000 mg PO Q8H PRN fever or pain 11/10/18 11/02/24 History aspirin 81 mg tablet,delayed 81 mg PO QAM 11/10/18 11/02/24 History release clopidogrel 75 mg tablet 75 mg PO QAM 11/10/18 11/02/24 History amiodarone 100 mg tablet 200 mg PO QAM 02/14/21 11/02/24 History atorvastatin 20 mg tablet 20 mg PO QAM 02/14/21 11/02/24 History metoprolol succinate 50 mg 50 mg PO QAM #90 tabs 02/14/21 11/02/24 History tablet,extended release 24 hr cholecalciferol (vitamin D3) 25 1,000 units PO QAM 09/19/23 11/02/24 History mcg (1,000 unit) capsule pregabalin 25 mg capsule 25 mg PO PM 11/02/24 11/02/24 History Past Med/Surg History Problem List (Updated 11/02/24 @ 02:07 by Alden Gaspar MD) Acute Lyme disease (Acute) SOB (shortness of breath) (Acute) Bilateral edema of lower extremity (Acute) Febrile illness, acute (Acute) Pre-op evaluation Lumbar spinal stenosis Chronic pain of right knee (Chronic) Situational anxiety (Chronic) Abnormal echocardiogram (Chronic) Arteriosclerosis of coronary artery (Chronic) Carpal tunnel syndrome, bilateral (Chronic) Dyslipidemia (Chronic) Hyperglycemia (Chronic) Idiopathic polyneuropathy (Chronic) Ischemic cardiomyopathy (Chronic) Low back pain (Chronic) Obesity (Chronic) HTN (hypertension) (Chronic) Paresthesia of both legs (Chronic) Coronary artery disease (Chronic) s/p PCI w/ 2 stents May 2017 Medical History Hx of non-ST elevation myocardial infarction (NSTEMI) [address] [facility] current use of anticoagulant plavix History of cardiac arrhythmia currently on amiodarone, "med works well, and no longer seems to have this problem," ICD placed in 2020; f/u [facility]dev higgins ICD (implantable cardioverter-defibrillator) in place 2020, [facility]; f/u [facility] History of ischemic cardiomyopathy 2017; f/u [facility] [place] Idiopathic polyneuropathy Hyperlipidemia Hypertension Surgical History History of cataract surgery right History of implantable cardioverter-defibrillator (ICD) placement 2020, [facility]wiscezar, [employer]; f/u baldev gann History of total left hip replacement 2018, [facility] Hx of coronary angioplasty 2018, [facility]; f/u [facility] [place] Hx of fusion of cervical spine 05/26/18, [facility], C2-C5; ROM "is ok" History of cardiac cath 2018, NSTEMI, [facility], x2 stents (2 total caths in close proximity); f/u dr. gann, [facility] Status post lumbar laminectomy 12/2020, [facility], "cleaned up the stenosis, no hardware placed"; L3-L5 Family History Brother Myocardial infarction Father Myocardial infarction Prostate cancer Other No pertinent family history Denies family history of Ovarian cancer Breast cancer Colorectal cancer Social History Smoking Status: Never smoker Second Hand Exposure: No; Do You Dip or Chew Tobacco: No; Hx Alcohol Use: No Hx Substance Use: No Preferred Language: Libyan Communication Ability: Effective Visual Impairment: No Limitations Hearing Ability: Normal President Celebrity Acquistion Required: No Beliefs That Will Affect Care: None marital status: Current Living Situation: Spouse Current Living Situation Comment: and 3 daughters current occupational status: employed Other Information That Helps Us Care for You: No Feels Safe at Home: Yes Safety Concerns: Feels Safe At This Time Childhood Exposure to Second-Hand Smoke: Yes Diet: regular Dental Care, Regularly: No Physical Activity Frequency: 3-4 Times per Week Seatbelt Use: always Sunscreen Use: Yes Assistive Devices: Walker Review of Systems Review of Systems: All systems reviewed & are unremarkable except as noted in HPI & below Physical Exam Physical Exam: General- Not in distress Head- atraumatic Eyes- PERRL. ENT- oropharynx clear Neck- supple, no JVD. Lungs- clear to auscultation mild b/l wheezing, no crackles Heart- regular rate and rhythm; no murmur, no gallop, no rub appreciated Abdomen- normal bowel sounds, soft, nontender, no distension. Extremities- b/l lower extremity gross edema present with mild erythematous left leg Neuro- alert, oriented PERRL, no facial palsy; no dysarthria; moves extremities Results & Data Results & Data Vital Signs (Past 12 Hours) Vital Signs Temp Pulse Pulse Resp BP Pulse Ox O2 Del Method 11/01/24 23:05 88 17 11/01/24 21:42 87 11/01/24 21:35 92 H 18 91 Room Air 11/01/24 21:35 37.2 C 91 H 18 123/72 91 Room Air 11/01/24 21:33 98 H Diagnostic Findings Laboratory Results WBC 14.53 K/ul (4.8-10.8) H 11/01/24 21: RBC 5.03 M/uL (4.70-6.10) 11/01/24 21: Hgb 15.2 g/dl (14.0-18.0) 11/01/24 21: POC Hgb 15.6 g/dl (14.0-18.0) 11/01/24 21:32 Hct 46.8 % (42.0-52.0) 11/01/24 21: POC Hct 46 % (42-52) 11/01/24 21:32 MCV 93.0 fL (80.0-100.0) 11/01/24 21: MCH 30.2 pg (25.0-34.0) 11/01/24 21: MCHC 32.5 g/dL (32.0-36.0) 11/01/24 21: RDW Std Deviation 48.9 fL (36.4-46.3) H 11/01/24: RDW Coeff of Ralph 14.4 % (11.5-14.5) 11/01/24 21: Plt Count 136 K/uL (130-400) 11/01/24 21: MPV 10.6 fL (9.4-12.4) 11/01/24 21: Immature Gran % (Auto) 0.4 % 11/01/24: Neut % (Auto) 92.3 % 11/01/24: Lymph % (Auto) 2.3 % 11/01/24: [place] % (Auto) 4.7 % 11/01/24 21: Eos % (Auto) 0.0 % 11/01/24 21: Baso % (Auto) 0.3 % 11/01/24: Neut # (Auto) 13.41 K/uL (1.40-6.50) H 11/01/24: Lymph # (Auto) 0.33 K/uL (1.20-3.40) L 11/01/24 21: [place] # (Auto) 0.68 K/uL (0.11-0.59) H 11/01/24 21: Eos # (Auto) 0.00 K/uL (0.00-0.50) 11/01/24 21:29 Baso # (Auto) 0.05 K/uL (0.00-0.20) 11/01/24 21: Immature Gran # (Auto) 0.06 K/uL (0.01-0.20) 11/01/24 21:29 POC Sodium 138 mmol/L (135-144) 11/01/24 21: Sodium 137 mmol/L (136-145) 11/01/24 21: POC Potassium 4.3 mmol/L (3.3-5.0) 11/01/24 21: Potassium 4.4 mmol/L (3.5-5.1) 11/01/24 21: POC Chloride 103 mmol/L (101-112) 11/01/24 21: Chloride 105 mmol/L (98-107) 11/01/24 21: Carbon Dioxide 28 mmol/L (21-32) 11/01/24: POC Total CO2 23 mmol/L (24-31) L 11/01/24: Anion Gap 4 (3-11) 11/01/24 21: POC Anion Gap 17.0 mmol/L (16-25) 11/01/24 21:32 POC BUN 18 mg/dl (7-18) 11/01/24: BUN 19 mg/dl (6-23) 11/01/24: Creatinine 0.85 mg/dl (0.6-1.4) 11/01/24: POC Creatinine 0.9 mg/dl (0.6-1.3) 11/01/24 21: Est Cr Clr Drug Dosing 94.2 ml/min 11/01/24 21: eGFR 90.62 11/01/24: BUN/Creatinine Ratio 22.4 (10-20) H 11/01/24 21: Glucose 129 mg/dl (70-99(Fasting)) H 11/01/24: POC Glucose (other) 130 mg/dl (70-99) H 11/01/24 21: Lactate 1.5 mmol/L (0.4-2.0) 11/01/24: Calcium 8.4 mg/dl (8.6-10.3) L 07/06/25 21:29 POC Ioniz Calcium [place]allely 1.16 mmol/l (1.12-1.32) 11/01/24 21:32 Magnesium 1.5 mg/dl (1.7-2.4) L 11/01/24 21:29 Total Bilirubin 0.7 mg/dl (0.2-1.0) 11/01/24 21:29 AST 21 U/L (13-39) 11/01/24 21: ALT 16 U/L (7-52) 11/01/24 21: Alkaline Phosphatase 71 U/L (34-104) 11/01/24 21: Troponin I High Sens 11.6 pg/ml (0-20) 11/01/24 21: B-Natriuretic Peptide 341 pg/ml (0-100) H 11/01/24 21: Total Protein 6.4 gm/dl (6.0-8.3) 11/01/24 21: Albumin 3.2 gm/dl (3.4-5.0) L 11/01/24 21: Globulin 3.2 gm/dl (2.5-4.0) 11/01/24 21: Albumin/Globulin Ratio 1.0 (0.9-2) 11/01/24 21: Procalcitonin 0.07 ng/ml (0-0.5) 11/01/24 21: TSH 4.343 uIu/ml (0.300-4.500) 11/01/24 21:29 Urine Color Yellow 11/01/24 21:37 Urine Appearance Clear (Clear) 11/01/24 21:37 Urine pH 5.0 (4.5-7.5) 11/01/24 21:37 Ur Specific [place] 1.016 (1.000-1.030) 11/01/24 21:37 Urine Protein Negative (Negative) 11/01/24 21:37 Urine Glucose (UA) Negative (Negative) 11/01/24 21:37 Urine Ketones Negative (Negative) 11/01/24 21:37 Urine Blood Negative (Negative) 11/01/24 21:37 Urine Nitrite Negative (Negative) 11/01/24 21:37 Urine Bilirubin Negative (Negative) 11/01/24 21:37 Urine Urobilinogen Negative (Negative) 11/01/24 21:37 Ur Leukocyte Esterase Negative (Negative) 11/01/24 21:37 Urine Comment 11/01/24 21:37 Adenovirus (PCR) Not Detected (NotDetected) 11/01/24 21:31 Anaplasma Smear See Comment 11/01/24 21:29 Babesia Smear See Comment 11/01/24 21:29 B. pertussis DNA (PCR) Not Detected (NotDetected) 11/01/24 21:31 B.parapertussis DNA PCR Not Detected (NotDetected) 11/01/24 21:31 Lyme Disease Screen Positive (Negative) H 11/01/24 21:29 Lyme Tier 2 IgG Confirm Positive (Negative) H 11/01/24 21:29 Lyme Tier 2 IgM Confirm Negative (Negative) 11/01/24 21:29 C. pneumoniae DNA (PCR) Not Detected (NotDetected) 11/01/24 21:31 Coronavirus OC43 (PCR) Not Detected (NotDetected) 11/01/24 21:31 Coronavirus HKU1 (PCR) Not Detected (NotDetected) 11/01/24 21:31 Coronavirus 229E (PCR) Not Detected (NotDetected) 11/01/24 21:31 SARS-CoV-2 (PCR) Not Detected (NotDetected) 11/01/24 21:31 Coronavirus NL63 (PCR) Not Detected (NotDetected) 11/01/24 21:31 Human Metapneumovir PCR Not Detected (NotDetected) 11/01/24 21:31 Influenza Type A (PCR) Not Detected (NotDetected) 11/01/24 21:31 Influenza Type B (PCR) Not Detected (NotDetected) 11/01/24 21:31 M. pneumoniae (PCR) Not Detected (NotDetected) 11/01/24 21:31 Parainfluenza 1 (PCR) Not Detected (NotDetected) 11/01/24 21:31 Parainfluenza 2 (PCR) Not Detected (NotDetected) 11/01/24 21:31 Parainfluenza 3 (PCR) Not Detected (NotDetected) 11/01/24 21:31 Parainfluenza 4 (PCR) Not Detected (NotDetected) 11/01/24 21:31 RSV (PCR) Not Detected (NotDetected) 11/01/24 21:31 Entero/Rhino (PCR) Not Detected (NotDetected) 11/01/24 21:31 ECG Additional Comments: ECG. Atrial sensed ventricular paced rhythm rate of 94. Code Status & VTE Plan VTE Prophylaxis Plan VTE Prophylaxis will be ordered: Yes
--- NOTE | 2024-11-02 01:41 | XRay Report ---
Exam(s): XR CXR 1 VIEW EXAM: XR Chest, 1 View CLINICAL HISTORY: Reason for exam: weakness. TECHNIQUE: Frontal view of the chest. COMPARISON: 12/27/2020. FINDINGS: Lungs: There is mild pulmonary vascular congestion. No consolidation. Pleural space: There is eventration the right hemidiaphragm. No pleural effusion is noted. No pneumothorax. Heart: A pacemaker is again noted. The heart is enlarged.. Mediastinum: There is uncoiling of thoracic aorta.. Bones/joints: There are postoperative changes involving the spine.. IMPRESSION: Cardiomegaly with pulmonary vascular congestion may represent mild congestive heart failure. Electronically signed by: Connor Warner MD 11/02/24 01:40 AM
[2024-11-02] MEDS ORDERED: ACETAMINOPHEN 325 MG TAB PO PRN (03:46)
[2024-11-02] MEDS ORDERED: NITROGLYCERIN SL 0.4 MG/TAB TAB SL PRN (03:46)
[2024-11-02] MEDS: FUROSEMIDE INJ 20 MG/2 ML VIAL IV ONE (04:04)
[2024-11-02 05:58] LABS: Anion Gap 5.0 (3-11); Blood Urea Nitrogen 22.0 mg/dl (6-23); Calcium 8.0 mg/dl (8.6-10.3); Carbon Dioxide 28.0 mmol/L (21-32); Chloride 104.0 mmol/L (98-107); Creatinine Clr Calc Pharmacy 76.5 ml/min; Glucose 136.0 mg/dl (70-99(Fasting)); Hematocrit (blood only) 44.3 % (42.0-52.0); Hemoglobin 14.2 g/dl (14.0-18.0); Magnesium 1.9 mg/dl (1.7-2.4); Mean Corpuscular Hemoglobin 30.1 pg (25.0-34.0); Mean Corpuscular Volume 93.9 fL (80.0-100.0); Platelet Count 138 K/uL (130-400); Potassium 4.6 mmol/L (3.5-5.1); RDW Standard Deviation 49.2 fL (36.4-46.3); Red Blood Count 4.72 M/uL (4.70-6.10); Sodium 137.0 mmol/L (136-145); White Blood Count 27.03 K/ul (4.8-10.8)
[2024-11-02 05:59] LABS: Immature Granulocytes # (auto) 0.62 K/uL (0.01-0.20); Immature Granulocytes % (auto) 2.3 %
--- NOTE | 2024-11-02 06:55 | Ultrasound Report ---
EXAM: US venous doppler LE BI CLINICAL HISTORY: bilateral lower ext edema. DVT. TECHNIQUE: Ultrasound examination of bilateral lower extremity veins was performed in real time and duplex. One or more of the following were performed: spectral analysis, resistive index, waveform analysis, and pulsed Doppler. Evaluation may be limited by the patient's body habitus. COMPARISON: None. FINDINGS: Normal phasic, non-pulsatile, and spontaneous flow is noted in the bilateral common femoral, superficial femoral, popliteal, posterior tibial, and peroneal veins. Visualized veins of both lower extremities demonstrate normal compressibility. No sonographic evidence of acute deep vein thrombosis (DVT) is detected in the visualized veins of both lower extremities. Compression and Augmentation: All evaluated veins compress fully with applied transducer pressure. Augmentation of venous flow is noted with distal compression. Additional Findings: Bilateral complex fluid collections with thickened [place] are noted in the popliteal fossae, consistent with Balderas's cysts. The wall thickening suggests associated synovitis. The right-sided collection measures 4.7 x 2.6 x 1.2 cm. The left-sided collection measures 3.6 x 0.9 x 3.2 cm Diffuse subcutaneous edema is noted throughout the bilateral calves. Right inguinal lymph nodes are seen, the largest measuring 3.2 x 1.6 x 2.2 cm. IMPRESSION: 1. No sonographic evidence of acute DVT was detected in the bilateral common femoral, superficial femoral, popliteal and posterior tibial, and peroneal veins at the time of examination. 2. Bilateral complex Balderas's cysts with features suggestive of synovitis. Clinical correlation is recommended. 3. Diffuse subcutaneous edema of the bilateral calves. 4. Right inguinal lymph nodes are seen, the largest measuring 3.2 x 1.6 x 2.2 cm. Disclaimer: DVT could be missed early in the disease when the clot burden is minimal. For patients with moderate and high pretest probability of DVT and negative ultrasound, the [employer] clinical guidelines recommend testing with a D-dimer assay or repeat ultrasound in 5-7 days. If symptoms worsen, the Society of Radiologists in Ultrasound recommends repeating the ultrasound even earlier. Electronically signed by Yaakov Guerrero 11-02-2024 06:54 AM
[2024-11-02 08:37] LABS: Hemoglobin A1C 5.3 % (4.5-5.6)
[2024-11-02] MEDS: CHOLECALCIFEROL 25 MCG (1000 UNITS) TAB PO SCH (08:54)
[2024-11-02] MEDS: DOXYCYCLINE HYCLATE 100 MG in DEXTROSE 5% MINI-B 100 ML IV SCH (08:54)
[2024-11-02] MEDS: ATORVASTATIN 20 MG TAB PO SCH (08:54)
[2024-11-02] MEDS: CLOPIDOGREL BISULFATE 75 MG TAB PO SCH (08:54)
[2024-11-02] MEDS: AMIODARONE 200 MG TAB PO SCH (08:55)
[2024-11-02] MEDS: ENOXAPARIN INJ 40 MG/0.4 ML SYR SQ SCH (08:55)
[2024-11-02] MEDS: ASPIRIN 81 MG ECTAB PO SCH (08:55)
[2024-11-02 09:32] LABS: Toxic Vacuolation 1+
[2024-11-02 09:54] LABS: A calco-baum cmplx NotReported Not Detected (NotDetected); Bact fragilis Not Reported Not Detected (NotDetected); Blood Culture Id Panel See PCR Comment (NotDetected); C auris Not Reported Not Detected (NotDetected); Calbicans Not Reported Not Detected (NotDetected); Candida glabrata Not Reported Not Detected (NotDetected); Candida krusei Not Reported Not Detected (NotDetected); Cneoformans/gatti Not Reported Not Detected (NotDetected); Cparapsilosis Not Reported Not Detected (NotDetected); Ctropicalis Not Reported Not Detected (NotDetected); E cloacae compx Not Reported Not Detected (NotDetected); Efaecalis Not Reported Not Detected (NotDetected); Efaecium Not Reported Not Detected (NotDetected); Enterobacterales Not Reported Not Detected (NotDetected); Escherichia coli Not Reported Not Detected (NotDetected); H influenzae Not Reported Not Detected (NotDetected); K aerogenes Not Reported Not Detected (NotDetected); Koxytoca Not Reported Not Detected (NotDetected); Kpneumoniae grp Not Reported Not Detected (NotDetected); Lmonocyt Not Reported Not Detected (NotDetected); N meningitidis Not Reported Not Detected (NotDetected); P aeruginosa Not Reported Not Detected (NotDetected); Proteus spp Not Reported Not Detected (NotDetected); Salmonella spp Not Reported Not Detected (NotDetected); Staph lugdunensis Not Reported Not Detected (NotDetected); Staph spp. Not Reported Not Detected (NotDetected); Staphaureus Not Reported Not Detected (NotDetected); Staphepi Not Reported Not Detected (NotDetected); Stenmaltophilia Not Reported Not Detected (NotDetected); Strep agal(GrpB) Not Reported Not Detected (NotDetected); Strep pneum Not Reported Not Detected (NotDetected); Strep pyog (GrpA) Not Reported Not Detected (NotDetected); Strep spp Not Reported DETECTED (NotDetected)
[2024-11-02 09:56] LABS: Streptococcus spp DETECTED (NotDetected)
[2024-11-02] MEDS: METOPROLOL SUCC 50MG EXT REL TAB PO SCH (10:05)
--- NOTE | 2024-11-02 18:27 | Electrocardiogram Report ---
Test Reason : Blood Pressure : */* mmHG Vent. Rate : 94 BPM Atrial Rate : 94 BPM P-R Int : 158 ms QRS Dur : 160 ms QT Int : 398 ms P-R-T Axes : 31 249 66 degrees QTcB Int : 497 ms Atrial-sensed ventricular-paced rhythm with fusion beqats Abnormal ECG When compared with ECG of 28-Jan-2018 06:14, Electronic ventricular pacemaker has replaced Sinus rhythm Confirmed by Jeff Lopez ([id number]) on 11/02/2024 6:26:21 PM Referred By: REFERRED SELF Confirmed By: Jeff Lopez
[2024-11-02] MEDS: PREGABALIN 25 MG CAP PO SCH (21:41)
[2024-11-02] MEDS: cefTRIAXone SODIUM 2,000 MG/50 ML BAG IV SCH (22:27)
--- NOTE | 2024-11-03 07:58 | Hospitalist Progress Note ---
Date of Service November 03, 2024 Assessment & Plan (1) Febrile illness, acute: Plan: 74-year-old male with past medical history significant for dyslipidemia, prediabetes, congestive heart failure with reduced ejection fraction and diastolic dysfunction, history of ischemic cardiopathy, hypertension, history of CAD status post stent, history of V. tach, IVCD conduction defect, left bundle branch block, status post defibrillator, morbid obesity, osteoarthritis, who lives at home with his and ambulates with a walker comes because of fever and not feeling well. Patient says since last Saturday is not feeling well. Saturday did okay. On Saturday again he was not feeling well. Was feeling short of breath, having body aches, nauseous and had 3 bowel movements which were normal and was not getting better so EMS was called. For EMS he had temperature of 101.7 degrees. Denies any headache. Vision is okay. No runny nose. No sore throat. Has some cough. Appetite is okay. Micturating okay. Has swelling in the lower extremities which patient thinks is same as before, no increase in swelling as per patient. Hemodynamics are okay. Bacteremia, strep Febrile illness acute Possible Lyme disease Lyme screen is positive Patient says he is not surprised Lyme screen being positive and thinks he is exposed to ticks Possible also left lower extremity cellulitis though patient says the swelling and erythema nothing new Empirically on Rocephin and doxycycline Will follow-up confirmation for Lyme screen Will follow response Blood cultx positive for Strep WBC down to 17K (24K yesterday) Pt afebrile Pt has ICD, hardware in cervical spine Repeat blood cultx ordered Echo ordered ID consulted Chronic CHF with low EF and atrial dysfunction EF was 20% on echo done in 07/2023 Patient not on diuretics at home Continue home metoprolol succinate Continue monitor for volume overload was wheezing on admission and lower extremity edema and shortness of breath Received one dose of IV Lasix 20 mg on admission History of V. tach Status post defibrillator On amiodarone CAD status post stents On metoprolol succinate, atorvastatin on Plavix and aspirin Hypertension On lisinopril, metoprolol succinate Will monitor Prediabetes Current HbA1c level 5.3% Hypomagnesia replace and monitor DVT prophylaxis Lovenox Disposition Med/telemetry Full code. Admission and Anticipated Discharge Date Admission Date: November 02, 2024 Subjective Pt seen in follow up of bacteremia , has ICD, also hardware after cervical surgery Currently pt feels improved, overall feeling better, and improved breathing too LEs less edematous less erythema Afebrile no chest pain, no abd. pain, n/v/d Review of Systems Review of Systems: All systems reviewed & are unremarkable except as noted in Subjective Physical Exam Physical Exam: General- morbidly obese M in NAD Head- atraumatic Eyes- PERRL. Neck- supple, no JVD. Lungs- decreased breath sounds, no wheezing Heart- regular rate and rhythm; no murmur Abdomen- normal bowel sounds, soft, nontender, + obese Extremities- b/l lower extremity edema (somewhat improved) present with mild erythematous left leg Neuro- alert, oriented PERRL, no facial palsy; no dysarthria; moves extremities Results & Data Results & Data Vital Signs (Past 12 Hours) Vital Signs Temp Pulse Pulse Resp BP Pulse Ox O2 Del Method 11/03/24 03:27 36.5 C 83 16 112/72 95 Room Air 11/02/24 22:52 37.3 C 84 16 107/69 94 Room Air 11/02/24 21:47 82 11/02/24 20:30 Nasal Cannula O2 Flow Rate 11/03/24 03:27 11/02/24 22:52 11/02/24 21:47 11/02/24 20:30 2 Laboratory Results 11/03/24 11/02/24 Range/Units 07:08 Unknown WBC 17.38 H (4.8-10.8) K/ul RBC 4.91 (4.70-6.10) M/uL Hgb 14.9 (14.0-18.0) g/dl Hct 45.0 (42.0-52.0) % MCV 91.6 (80.0-100.0) fL MCH 30.3 (25.0-34.0) pg MCHC 33.1 (32.0-36.0) g/dL RDW Std Deviation 48.9 H (36.4-46.3) fL RDW Coeff of Ralph 14.5 (11.5-14.5) % Plt Count 124 L (130-400) K/uL MPV 11.0 (9.4-12.4) fL Immature Gran % (Auto) 0.7 % Neut % (Auto) 87.6 % Lymph % (Auto) 2.4 % [place] % (Auto) 8.7 % Eos % (Auto) 0.4 % Baso % (Auto) 0.2 % Neut # (Auto) 15.22 H (1.40-6.50) K/uL Lymph # (Auto) 0.42 L (1.20-3.40) K/uL [place] # (Auto) 1.52 H (0.11-0.59) K/uL Eos # (Auto) 0.07 (0.00-0.50) K/uL Baso # (Auto) 0.03 (0.00-0.20) K/uL Immature Gran # (Auto) 0.12 (0.01-0.20) K/uL Sodium 136 (136-145) mmol/L Potassium 4.1 (3.5-5.1) mmol/L Chloride 103 (98-107) mmol/L Carbon Dioxide 27 (21-32) mmol/L Anion Gap 6 (3-11) BUN 28 H (6-23) mg/dl Creatinine 0.95 (0.6-1.4) mg/dl Est Cr Clr Drug Dosing 83.0 ml/min eGFR 83.47 BUN/Creatinine Ratio 29.5 H (10-20) Glucose 115 H (70-99(Fasting)) mg/dl Calcium 8.5 L (8.6-10.3) mg/dl Phosphorus 2.7 (2.5-4.9) mg/dl Magnesium 2.0 (1.7-2.4) mg/dl Total Bilirubin 0.5 (0.2-1.0) mg/dl AST 17 (13-39) U/L ALT 15 (7-52) U/L Alkaline Phosphatase 62 (34-104) U/L Total Protein 6.3 (6.0-8.3) gm/dl Albumin 3.2 L (3.4-5.0) gm/dl Globulin 3.1 (2.5-4.0) gm/dl Albumin/Globulin Ratio 1.0 (0.9-2) Nasal Screen MRSA (PCR) Negative (Negative) Medications Administered Current Inpatient Medications Acetaminophen (Acetaminophen 325 Mg Tab) 650 mg PO Q4H PRN PRN Reason: Pain or Fever Stop: 12/02/24 03:45 Amiodarone HCl (Amiodarone 200 Mg Tab) 200 mg PO [facility] Stop: 12/02/24 08:59 Last Admin: 11/03/24 09:14 Dose: 200 mg Aspirin ([facility]in 81 Mg Ectab) [facility] Stop: 12/02/24 08:59 Last Admin: 11/03/24 09:14 Dose: 81 mg Atorvastatin Calcium (Atorvastatin 20 Mg Tab) 20 mg PO [facility] Stop: 12/02/24 08:59 Last Admin: 11/03/24 09:15 Dose: 20 mg Clopidogrel Bisulfate (Clopidogrel Bisulfate 75 Mg Tab) 75 mg PO [facility] Stop: 12/02/24 08:59 Last Admin: 11/03/24 09:14 Dose: 75 mg Enoxaparin Sodium (Enoxaparin Inj 40 Mg/0.4 Ml Syr) 40 mg SQ Q12H [facility] Stop: 12/02/24 08:59 Last Admin: 11/03/24 09:13 Dose: 40 mg Doxycycline Hyclate 100 mg/ (Dextrose) 100 mls @ 50 mls/hr IV Q12H [facility] Stop: 11/12/24 08:59 Last Admin: 11/03/24 09:13 Dose: 50 mls/hr Ceftriaxone Sodium (Rocephin) 2,000 mg in 50 mls @ 100 mls/hr IV Q24H [facility] Stop: 11/12/24 22:29 Last Infusion: 11/02/24 22:57 Dose: Infused Lisinopril (Lisinopril 5 Mg Tab) 5 mg PO [facility] Stop: 12/02/24 08:59 Last Admin: 11/03/24 09:15 Dose: 5 mg Metoprolol Succinate (Metoprolol Succ 50mg Ext Rel Tab) 50 mg PO [facility] Stop: 12/02/24 08:59 Last Admin: 11/03/24 09:14 Dose: 50 mg Nitroglycerin (Nitroglycerin Sl 0.4 Mg/Tab Tab) 0.4 mg SL Q5M PRN PRN Reason: Chest Pain Stop: 12/02/24 03:45 Pregabalin (Pregabalin 25 Mg Cap) 25 mg PO PM [facility] Stop: 12/02/24 20:59 Last Admin: 11/02/24 21:41 Dose: 25 mg Vitamin D (Cholecalciferol 25 Mcg (1000 Units) Tab) [facility]cg [facility] Stop: 12/02/24 08:59 Last Admin: 11/03/24 09:14 Dose: 25 mcg
[2024-11-03 08:24] LABS: Hematocrit (blood only) 45.0 % (42.0-52.0); Hemoglobin 14.9 g/dl (14.0-18.0); Immature Granulocytes # (auto) 0.12 K/uL (0.01-0.20); Immature Granulocytes % (auto) 0.7 %; Mean Corpuscular Hemoglobin 30.3 pg (25.0-34.0); Mean Corpuscular Volume 91.6 fL (80.0-100.0); Platelet Count 124 K/uL (130-400); RDW Standard Deviation 48.9 fL (36.4-46.3); Red Blood Count 4.91 M/uL (4.70-6.10); White Blood Count 17.38 K/ul (4.8-10.8)
[2024-11-03] MEDS: PERFLUTREN LIPID MICROSPHERE (DEFINITY) IV ONE (08:29)
[2024-11-03 09:16] LABS: Alanine Aminotransferase 15.0 U/L (7-52); Albumin Globulin Ratio 1.0 (0.9-2); Alkaline Phosphatase 62.0 U/L (34-104); Anion Gap 6.0 (3-11); Bilirubin,Total 0.5 mg/dl (0.2-1.0); Blood Urea Nitrogen 28.0 mg/dl (6-23); Calcium 8.5 mg/dl (8.6-10.3); Carbon Dioxide 27.0 mmol/L (21-32); Chloride 103.0 mmol/L (98-107); Creatinine Clr Calc Pharmacy 83.0 ml/min; Globulin 3.1 gm/dl (2.5-4.0); Glucose 115.0 mg/dl (70-99(Fasting)); Magnesium 2.0 mg/dl (1.7-2.4); Potassium 4.1 mmol/L (3.5-5.1); Sodium 136.0 mmol/L (136-145); Total Protein 6.3 gm/dl (6.0-8.3)
--- NOTE | 2024-11-03 14:34 | Infectious Disease Consult ---
Date of Service November 03, 2024 Telehealth Information I performed this visit using a real-time telehealth connection between my location and the patients location ([facility]). After connecting through interactive tele-video, patient was identified by name and date of and/or wristband check.Patient (or authorized healthcare scheduling representative) was informed that this was a telemedicine visit and it was being conducted confidentially over secure lines. My office door was closed and no one else was present in the room with me.Patient (or authorized healthcare scheduling representative) provided consent to proceed with the visit, expressed an understanding of privacy and security of the telemedicine visit, and gave permission to have a hospital scheduling representative in the room in order to assist with the visit and to conduct portions of the visit, as needed. I informed the patient (or authorized healthcare scheduling representative) that I reviewed their record and presented the opportunity for them to ask any questions regarding the visit today. The patient agreed to participate. Assessment & Plan (1) Streptococcal bacteremia: (2) ICD (implantable cardioverter-defibrillator) in place: (3) Chronic heart failure with reduced ejection fraction (HFrEF, <= 40%): (4) Positive Lyme disease serology: Plan Patient does have posterior cervical fusion and left hip arthroplasty in the past, but he has not have any related symptoms. Therefore, with no other apparent sources for the strep bacteremia, I would be concerned about ICD leads infection. I would recommend to continue on IV ceftriaxone 2 g daily. Please discontinue doxycycline has the Lyme serology is likely positive because of a previous infection. Please contact Cardiology to discuss the possibility of performing a transesophageal ECHO. Please continue to send for blood culture every 48 hours until negative. Thank you for consulting Infectious Disease. We will continue to follow. History of Present Illness History of Present Illness Mr. Alfaro is a 74-year-old man with past medical history of chronic congestive heart failure (with reduced ejection fraction), coronary artery disease, ischemic cardiomyopathy with a history of V-tach status post ICD placement, HTN, prediabetes, and morbid obesity who was admitted to [facility] on 11/02/2024 because of malaise, generalized body aches, shortness of breath and fever. On presentation, he was afebrile but requiring 2 L of oxygen via nasal cannula; the rest of the vitals were within normal limits. Initial workup showed leukocytosis of 14.5 (ANC 13.4), positive Lyme screen with positive IgG (negative IgM), negative RVP panel, and shortly after admission, blood culture came back positive for Streptococcus species (identified via PCR). Chest x-ray was suggestive of cardiomegaly with pulmonary vascular congestion. ID team was consulted for further recommendations and to help guide antibiotic treatment. Allergies Allergy/AdvReac Type Severity Reaction Status Date / Time No Known Allergies Allergy Verified 10/29/23 07:06 Home Medications Medication Instructions Recorded Confirmed Type lisinopril 5 mg tablet 5 mg PO QAM 01/27/18 11/02/24 History nitroglycerin 0.4 mg sublingual 0.4 mg sublingual DIRECTED PRN 01/27/18 11/02/24 History tablet Chest Pain acetaminophen 500 mg tablet 1,000 mg PO Q8H PRN fever or pain 11/10/18 11/02/24 History aspirin 81 mg tablet,delayed 81 mg PO QAM 11/10/18 11/02/24 History release clopidogrel 75 mg tablet 75 mg PO QAM 11/10/18 11/02/24 History amiodarone 100 mg tablet 200 mg PO QAM 02/14/21 11/02/24 History atorvastatin 20 mg tablet 20 mg PO QAM 02/14/21 11/02/24 History metoprolol succinate 50 mg 50 mg PO QAM #90 tabs 02/14/21 11/02/24 History tablet,extended release 24 hr cholecalciferol (vitamin D3) 25 1,000 units PO QAM 09/19/23 11/02/24 History mcg (1,000 unit) capsule pregabalin 25 mg capsule 25 mg PO PM 11/02/24 11/02/24 History Patient History Medical History Hx of non-ST elevation myocardial infarction (NSTEMI) [facility] current use of anticoagulant plavix History of cardiac arrhythmia currently on amiodarone, "med works well, and no longer seems to have this problem," ICD placed in 2020; f/u baldev higgins ICD (implantable cardioverter-defibrillator) in place 2020, [facility]; f/u baldev gann History of ischemic cardiomyopathy 2017; f/u dr. zazzali, [facility] Idiopathic polyneuropathy Hyperlipidemia Hypertension Surgical History History of cataract surgery right History of implantable cardioverter-defibrillator (ICD) placement 2020, [facility]; f/u baldev gann History of total left hip replacement 2018, [facility] Hx of coronary angioplasty 2018, [facility]; f/u baldev [place] Hx of fusion of cervical spine 05/26/18, [facility], C2-C5; ROM "is ok" History of cardiac cath 2018, NSTEMI, [facility], x2 stents (2 total caths in close proximity); f/u baldev [place] Status post lumbar laminectomy 12/2020, [facility], "cleaned up the stenosis, no hardware placed"; L3-L5 Family History Brother Myocardial infarction Father Myocardial infarction Prostate cancer Other No pertinent family history Denies family history of Ovarian cancer Breast cancer Colorectal cancer Social History Smoking Status: Never smoker Second Hand Exposure: No; Do You Dip or Chew Tobacco: No; Hx Alcohol Use: No Hx Substance Use: No Preferred Language: Malagasy Communication Ability: Effective Visual Impairment: No Limitations Hearing Ability: Normal Campus Wellness Coordinator Required: No Beliefs That Will Affect Care: None marital status: Current Living Situation: Spouse Current Living Situation Comment: and 3 daughters current occupational status: employed Other Information That Helps Us Care for You: No Feels Safe at Home: Yes Safety Concerns: Feels Safe At This Time Childhood Exposure to Second-Hand Smoke: Yes Diet: regular Dental Care, Regularly: No Physical Activity Frequency: 3-4 Times per Week Seatbelt Use: always Sunscreen Use: Yes Assistive Devices: Walker Review of Systems Negative except for what was mentioned in the H&P. Physical Exam Could not be performed given that the encounter was conducted via TeleMed. Results & Data Vital Signs (Past 12 Hours) Vital Signs Temp Pulse Resp BP Pulse Ox O2 Del Method 11/03/24 11:32 36.6 C 79 20 90/56 L 96 Room Air 11/03/24 08:01 36.5 C 79 24 110/69 96 Room Air 11/03/24 08:00 Room Air 11/03/24 03:27 36.5 C 83 16 112/72 95 Room Air Laboratory Results Microbiology: 11/01: 4/4 bottles of blood culture positive for strep dysagalactiae 11/02: 2 sets of blood culture negative to date Diagnostic Findings Imaging: Transthoracic echo performed on 11/03: Findings consistent with ischemic cardiomyopathy and left ventricular ejection fraction 20-24% unchanged from the echocardiogram on 08/27/2023. No obvious vegetations. Chest x-ray on 11/01: Cardiomegaly with pulmonary vascular congestion may represent mild congestive heart failure.
--- NOTE | 2024-11-03 15:52 | Cardiology Consultation ---
Date of Consultation November 03, 2024 Assessment & Plan (1) Streptococcal bacteremia: * 2 / 2 blood cultures obtained on arrival 11/01/2024, 22:30 positive for Streptococcus dysgalactiae-Likely the cause of the patient's fever * Transthoracic echocardiogram performed today, no evidence of vegetation involving the valves or AICD leads within the scope of limitation of that imaging modality. * AICD pocket in the left infraclavicular position clean dry and intact, no erythema * Patient with history of cervical spine and lumbar spine instrumentation remotely, but has no new or worsening neck or back pain * Based on physical exam findings,question if the source of his bacteremia is left lower extremity cellulitis. Patient with significant lower extremity edema that is accumulated for the last few weeks. Fluid retention is not usually an issue for him and he is not on a baseline diuretic. * Will consider transesophageal echocardiogram, timing to be determined based on clinical progress and candidacy for sedation (2) Positive Lyme disease serology: * IgG positive with negative IgM, doubtful that this is the source of his fever given streptococcal bacteremia (3) Chronic heart failure with reduced ejection fraction (HFrEF, <= 40%): * Patient with chronic Heart failure with reduced ejection fraction due to ischemic cardiomyopathy with subacute fluid retention * LVEF in the range of 20-24% (unchanged compared to previous) * Underwent biventricular pacemaker/AICD in 2020 and is biventricular paced greater than 98% the time. Also has a history of paroxysmal ventricular tachycardia for which she is on amiodarone and has had breakthrough episodes within the last months as noted on recent device interrogation. * Continue amiodarone and metoprolol doses as per outpatient regimen. * Hold lisinopril 5 mg daily in an effort to allow for more blood pressure with regards to sepsis, need for diuretics, need for sedation History of Present Illness Attending Physician: Jovi Nguyen MD History of Present Illness Iftikhar Alfaro is a 74 year old male seen in cardiology consultation per the request of Dr Nguyen for the evaluation of acute on chronic heart failure with reduced ejection fraction. 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 At home he was reported to have a temperature of 101.7 F. He describes progressive lower extremity edema worsening over the last month with tight skin of the left lower leg and associated erythema. He describes a baseline degree of shortness of breath with exertion that is chronic and relatively unchanged. 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 of RCA h/o PCI to prox LAD and diagonal 1 in 05/2017 at [facility] then a repeat cath 01/2018 for NSTEMI with Patent LAD, diagonal 1 stents, stenosis of the apical LAD not amenable for PCI, medical management performed, HEALTHCARE ACCOUNT MANAGER of RCA redemonstrated Moderate suspected with possibly low flow/cardiac output; no change on echo 01/04/2022 from 08/02/2020 IVCD/ borderline LBBB Chronic heart failure with reduced EF, NYHA Class II HTN HLD Laminectomy and fusion of the cervical spine, C3-C6 level, 05/26/2018 Laminectomy of lumbar spine L3-L5 levels 01/23/2021 Allergies Allergy/AdvReac Type Severity Reaction Status Date / Time No Known Allergies Allergy Verified 10/29/23 07:06 Home Medications Medication Instructions Recorded Confirmed Type lisinopril 5 mg tablet 5 mg PO QAM 01/27/18 11/02/24 History nitroglycerin 0.4 mg sublingual 0.4 mg sublingual DIRECTED PRN 01/27/18 11/02/24 History tablet Chest Pain acetaminophen 500 mg tablet 1,000 mg PO Q8H PRN fever or pain 11/10/18 11/02/24 History aspirin 81 mg tablet,delayed 81 mg PO QAM 11/10/18 11/02/24 History release clopidogrel 75 mg tablet 75 mg PO QAM 11/10/18 11/02/24 History amiodarone 100 mg tablet 200 mg PO QAM 02/14/21 11/02/24 History atorvastatin 20 mg tablet 20 mg PO QAM 02/14/21 11/02/24 History metoprolol succinate 50 mg 50 mg PO QAM #90 tabs 02/14/21 11/02/24 History tablet,extended release 24 hr cholecalciferol (vitamin D3) 25 1,000 units PO QAM 09/19/23 11/02/24 History mcg (1,000 unit) capsule pregabalin 25 mg capsule 25 mg PO PM 11/02/24 11/02/24 History Patient History Medical History Hx of non-ST elevation myocardial infarction (NSTEMI) 2018 [facility] current use of anticoagulant plavix History of cardiac arrhythmia currently on amiodarone, "med works well, and no longer seems to have this problem," ICD placed in 2020; f/u baldev higgins ICD (implantable cardioverter-defibrillator) in place 2020, [facility]; f/u baldev gann History of ischemic cardiomyopathy 2017; f/u baldev [place] Idiopathic polyneuropathy Hyperlipidemia Hypertension Surgical History History of cataract surgery right History of implantable cardioverter-defibrillator (ICD) placement 2020, [facility]; f/u baldev gann History of total left hip replacement 2019, [facility] Hx of coronary angioplasty 2018, [facility]; f/u [facility]dev [place] Hx of fusion of cervical spine 05/26/18, [facility], C2-C5; ROM "is ok" History of cardiac cath 2018, [facility], [facility], x2 stents (2 total caths in close proximity); f/u baldev [place] Status post lumbar laminectomy 12/2020, [facility], "cleaned up the stenosis, no hardware placed"; L3-L5 Family History Brother Myocardial infarction Father Myocardial infarction Prostate cancer Other No pertinent family history Denies family history of Ovarian cancer Breast cancer Colorectal cancer Social History Smoking Status: Never smoker Second Hand Exposure: No; Do You Dip or Chew Tobacco: No; Hx Alcohol Use: No Hx Substance Use: No Preferred Language: Thai Communication Ability: Effective Visual Impairment: No Limitations Hearing Ability: Normal Pin Machine Tender Required: No Beliefs That Will Affect Care: None marital status: Current Living Situation: Spouse Current Living Situation Comment: and 3 daughters current occupational status: employed Other Information That Helps Us Care for You: No Feels Safe at Home: Yes Safety Concerns: Feels Safe At This Time Childhood Exposure to Second-Hand Smoke: Yes Diet: regular Dental Care, Regularly: No Physical Activity Frequency: 3-4 Times per Week Seatbelt Use: always Sunscreen Use: Yes Assistive Devices: Walker Review of Systems Review of Systems: All systems reviewed & are unremarkable except as noted in HPI & below Constitutional: Fevers, generalized malaise Cardiovascular: Additional Comments: Lower extremity edema, left lower extremity erythema Physical Exam Physical Exam: Temp Pulse Resp BP Pulse Ox O2 Del Method O2 Flow Rate 36.7 C 80 24 112/72 95 Room Air 2 11/03/24 15:55 11/03/24 15:55 11/03/24 15:55 11/03/24 15:55 11/03/24 15:55 11/03/24 15:55 11/02/24 20:30 Constitutional: + ill appearing and + obese; no acute di stress Eyes: PERRL, conjunctivae normal, anicteric sclerae Neck: trachea midline Respiratory: no cough Auscultation: + diminished lung sounds (Mildly decreased breath sounds at the bases bilateral); no crackles and no wheezes Cardiovascular: Rate/Rhythm: regular rhythm Heart Sounds: + murmur (1/6 systolic murmur) Extremities: + edema (3+ bilateral lower extremity edema, left worse than right, with lower leg e) Chest (Breasts): Additional Comments: Left infraclavicular AICD pocket clean dry intact, no erythema Gastrointestinal (Abdomen): normal bowel sounds, soft, nontender, no hepatosplenomegaly Neurologic: PERRL, EOMI, accommodation nl, no face palsy, no dysarthria Results & Data Vital Signs (Past 12 Hours) Vital Signs Temp Pulse Resp BP Pulse Ox O2 Del Method 11/03/24 11:32 36.6 C 79 20 90/56 L 96 Room Air 11/03/24 08:01 36.5 C 79 24 110/69 96 Room Air 11/03/24 08:00 Room Air Laboratory Results Cardiac Enzymes 11/03/24 Range/Units 07:08 AST 17 (13-39) U/L CBC 11/03/24 Range/Units 07:08 WBC 17.38 H (4.8-10.8) K/ul RBC 4.91 (4.70-6.10) M/uL Hgb 14.9 (14.0-18.0) g/dl Hct 45.0 (42.0-52.0) % Plt Count 124 L (130-400) K/uL Neut # (Auto) 15.22 H (1.40-6.50) K/uL Lymph # (Auto) 0.42 L (1.20-3.40) K/uL [place] # (Auto) 1.52 H (0.11-0.59) K/uL Eos # (Auto) 0.07 (0.00-0.50) K/uL Baso # (Auto) 0.03 (0.00-0.20) K/uL Comprehensive Metabolic Panel 11/03/24 Range/Units 07:08 Sodium 136 (136-145) mmol/L Potassium 4.1 (3.5-5.1) mmol/L Chloride 103 (98-107) mmol/L Carbon Dioxide 27 (21-32) mmol/L BUN 28 H (6-23) mg/dl Creatinine 0.95 (0.6-1.4) mg/dl Glucose 115 H (70-99(Fasting)) mg/dl Calcium 8.5 L (8.6-10.3) mg/dl AST 17 (13-39) U/L ALT 15 (7-52) U/L Alkaline Phosphatase 62 (34-104) U/L Total Protein 6.3 (6.0-8.3) gm/dl Albumin 3.2 L (3.4-5.0) gm/dl Intake and Output 11/03/24 11/03/24 11/03/24 06:59 14:59 22:59 Intake Total 200 / 1270 460 / 460 Output Total 450 / 1550 1551 / 1551 Balance -250 / -280 -1091 / -1091 Intake: IV 100 / 250 100 / 100 Doxycycline Hyclate 100 mg In 100 / 200 100 / 100 Dextrose 5% Mini-B 100 ml @ 50 mls/hr IV Q12H [facility] Rx#:[id number] Oral 100 / 1020 360 / 360 Output: Urine 450 / 1550 1550 / 1550 # Bowel Movements Diagnostic Findings EKG performed 11/01/2024 at 2134 and interpret independently: Sinus rhythm, atrial sensed rhythm with ventricular paced QRS complexes Echocardiogram performed today 11/03/2024: No evidence of vegetation within the scope of limitations of this imaging modality. If clinical suspicion for endocarditis remains high, consider transesophageal echocardiogram. Findings consistent with patient's known history of ischemic cardiomyopathy with ejection fraction in the range of 20 to 24% unchanged compared to the most recent outpatient echocardiogram dated 08/27/2023. Moderate aortic stenosis present, low-flow low gradient aortic stenosis not excluded. Summary of [employer] biventricular pacemaker AICD, implanted 09/12/2020, most recent remote interrogation 11/10/2024: Generator longevity stable at 3.5-years Atrial pacing 99.6% the time Biventricular pacing 99.8% of the time 10 seconds duration nonsustained ventricular tachycardia episode rate 154 bpm on 08/18/2024 Treated nonsustained VT episode of 10 seconds in duration on receiving 1 round of burst pacing with subsequent termination PG Care Time/CCT Total # of Minutes Spent Total Time Spent: 65 Coding Level of Care Code 51161 IN/OBS CONSULT LVL 4,60M Diagnoses Streptococcal bacteremia R78.81; B95.5 Positive Lyme disease serology R76.8 Chronic heart failure with reduced ejection fraction (HFrEF, <= 40%) I50.22
[2024-11-04 07:17] LABS: Hematocrit (blood only) 42.9 % (42.0-52.0); Hemoglobin 13.9 g/dl (14.0-18.0); Immature Granulocytes # (auto) 0.01 K/uL (0.01-0.20); Immature Granulocytes % (auto) 0.1 %; Mean Corpuscular Hemoglobin 29.9 pg (25.0-34.0); Mean Corpuscular Volume 92.3 fL (80.0-100.0); Platelet Count 119 K/uL (130-400); RDW Standard Deviation 48.4 fL (36.4-46.3); Red Blood Count 4.65 M/uL (4.70-6.10); White Blood Count 7.83 K/ul (4.8-10.8)
[2024-11-04 07:33] LABS: Anion Gap 4.0 (3-11); Blood Urea Nitrogen 23.0 mg/dl (6-23); Calcium 8.4 mg/dl (8.6-10.3); Carbon Dioxide 28.0 mmol/L (21-32); Chloride 104.0 mmol/L (98-107); Creatinine Clr Calc Pharmacy 96.6 ml/min; Glucose 128.0 mg/dl (70-99(Fasting)); Magnesium 1.9 mg/dl (1.7-2.4); Potassium 4.5 mmol/L (3.5-5.1); Sodium 136.0 mmol/L (136-145)
--- NOTE | 2024-11-04 10:38 | Cardiology Progress Note ---
Date of Service November 04, 2024 Assessment & Plan (1) Streptococcal bacteremia: Plan: * 2 /2 blood cultures obtained on arrival 11/01/2024, 22:30 positive for Streptococcus dysgalactiae-Likely the cause of the patient's fever * Transthoracic echocardiogram performed today, no evidence of vegetation involving the valves or AICD leads within the scope of limitation of that imaging modality. * AICD pocket in the left infraclavicular position clean dry and intact, no er ythema * Patient with history of cervical spine and lumbar spine instrumentation remotely, but has no new or worsening neck or back pain * Based on physical exam findings,question if the source of his bacteremia is left lower extremity cellulitis. Patient with significant lower extremity edema that is accumulated for the last few weeks. * Proceed with MIKAEL, today or tomorrow depending on scheduling. Patient agreeable. * Updated his spouse, Alicia, by phone. (2) Positive Lyme disease serology: Plan: * IgG positive with negative IgM, doubtful that this is the source of his fever given streptococcal bacteremia (3) Chronic heart failure with reduced ejection fraction (HFrEF, <= 40%): Plan: * Patient with chronic Heart failure with reduced ejection fraction due to ischemic cardiomyopathy with subacute fluid retention * LVEF in the range of 20-24% (unchanged compared to previous) * Underwent biventricular pacemaker/AICD in 2020 and is biventricular paced greater than 98% the time. Also has a history of paroxysmal ventricular tachycardia for which she is on amiodarone and has had breakthrough episodes within the last months as noted on recent device interrogation. LFTs and TSH within normal limits this stay. * Continue amiodarone and metoprolol doses as per outpatient regimen. * Hold lisinopril 5 mg daily in an effort to allow for more blood pressure with regards to sepsis, need for diuretics, need for sedation * Will likely add trial of low dose IV diuretics after MIKAEL as BP permits. Admission and Anticipated Discharge Date Admission Date: November 02, 2024 Subjective Patient seen in cardiology follow up. Review of Systems Review of Systems: All systems reviewed & are unremarkable except as noted in HPI & below Physical Exam Physical Exam: Temp Pulse Resp BP Pulse Ox O2 Del Method O2 Flow Rate 36.3 C L 81 20 126/73 99 Room Air 2 11/04/24 08:04 11/04/24 08:04 11/04/24 08:04 11/04/24 08:04 11/04/24 08:04 11/04/24 08:04 11/02/24 20:30 Constitutional: + ill appearing and + obese; no acute di stress Eyes: PERRL, conjunctivae normal, anicteric sclerae Neck: trachea midline Respiratory: no cough Auscultation: + diminished lung sounds (Mildly decreased breath sounds at the bases bilateral); no crackles and no wheezes Cardiovascular: Rate/Rhythm: regular rhythm Heart Sounds: + murmur (1/6 systolic murmur) Extremities: + edema (3+ bilateral lower extremity edema, left worse than right, with lower leg e) Gastrointestinal (Abdomen): normal bowel sounds, soft, nontender, no hepatosplenomegaly Neurologic: PERRL, EOMI, accommodation nl, no face palsy, no dysarthria Results & Data Vital Signs (Past 12 Hours) Vital Signs Temp Pulse Resp BP Pulse Ox O2 Del Method 11/04/24 08:04 36.3 C L 81 20 126/73 99 Room Air 11/04/24 03:41 36.6 C 74 18 112/66 95 Room Air 11/03/24 23:16 36.4 C L 80 18 122/80 95 Room Air Laboratory Results CBC 11/04/24 Range/Units 06:47 WBC 7.83 (4.8-10.8) K/ul RBC 4.65 L (4.70-6.10) M/uL Hgb 13.9 L (14.0-18.0) g/dl Hct 42.9 (42.0-52.0) % Plt Count 119 L (130-400) K/uL Neut # (Auto) 6.35 (1.40-6.50) K/uL Lymph # (Auto) 0.46 L (1.20-3.40) K/uL [place] # (Auto) 0.98 H (0.11-0.59) K/uL Eos # (Auto) 0.00 (0.00-0.50) K/uL Baso # (Auto) 0.03 (0.00-0.20) K/uL Comprehensive Metabolic Panel 11/04/24 Range/Units 06:47 Sodium 136 (136-145) mmol/L Potassium 4.5 (3.5-5.1) mmol/L Chloride 104 (98-107) mmol/L Carbon Dioxide 28 (21-32) mmol/L BUN 23 (6-23) mg/dl Creatinine 0.82 (0.6-1.4) mg/dl Glucose 128 H (70-99(Fasting)) mg/dl Calcium 8.4 L (8.6-10.3) mg/dl PG Care Time/CCT Total # of Minutes Spent Total Time Spent with Patient: Total time spent is greater than 50% in coordination of care (as documented) at patient's floor/unit and/or counseling patient: 40 minutes [place] [address] SUB INP/OBS CARE 3/50MIN Patient Type Established History Detailed Exam Detailed Medical Decision Making High Complexity Diagnoses Streptococcal bacteremia R78.81; B95.5 Positive Lyme disease serology R76.8 Chronic heart failure with reduced ejection fraction (HFrEF, <= 40%) I50.22 Time Spent (min) 40
[2024-11-04] MEDS ORDERED: PROPOFOL IV EMULSION 10 MG/ML 20 ML VIAL IV ONE (12:51)
[2024-11-04] MEDS ORDERED: MIDAZOLAM HCL 1 MG/ML 2ML VIAL ONE (12:51)
--- NOTE | 2024-11-04 12:55 | Anesthesiology Consultation ---
Date of Service November 04, 2024 Assessment & Plan ASA ASA4 Proposed Anesthesia Anesthesia Type: MAC Risk / Benefits Reviewed With: PT / POA / Parent / Guardian, Accepts Plan and Informed Consent Obtained History Surgery Operation Date: 11/04/24 13:00 Proposed Procedures p Transesophageal Echo w/Anesthesia - Scott Umanzor DO s Cardioversion - Scott Umanzor DO Height/Weight Height: 5 ft 6 in Weight: 123.6 kg Allergies Allergy/AdvReac Type Severity Reaction Status Date / Time No Known Allergies Allergy Verified 10/29/23 07:06 Medications Home Medications Medication Instructions Recorded Confirmed Last Taken lisinopril 5 mg tablet 5 mg PO QAM 01/27/18 11/02/24 11/01/24 nitroglycerin 0.4 mg sublingual 0.4 mg sublingual DIRECTED PRN 01/27/18 11/02/24 Unknown tablet Chest Pain acetaminophen 500 mg tablet 1,000 mg PO Q8H PRN fever or pain 11/10/18 11/02/24 Unknown aspirin 81 mg tablet,delayed 81 mg PO QAM 11/10/18 11/02/24 11/01/24 release clopidogrel 75 mg tablet 75 mg PO QAM 11/10/18 11/02/24 11/01/24 amiodarone 100 mg tablet 200 mg PO QAM 02/14/21 11/02/24 11/01/24 atorvastatin 20 mg tablet 20 mg PO QAM 02/14/21 11/02/24 11/01/24 metoprolol succinate 50 mg 50 mg PO QAM #90 tabs 02/14/21 11/02/24 11/01/24 tablet,extended release 24 hr cholecalciferol (vitamin D3) 25 1,000 units PO QAM 09/19/23 11/02/24 11/01/24 mcg (1,000 unit) capsule pregabalin 25 mg capsule 25 mg PO PM 11/02/24 11/02/24 11/01/24 Active Medications Generic Name Dose Route Start Last Admin Trade Name Freq PRN Reason Stop Dose Admin Amiodarone HCl 200 mg 11/02/24 09:00 11/04/24 10:19 Amiodarone 200 Mg Tab PO 12/02/24 08:59 200 mg QAM MARBIN Administration Aspirin 81 mg 11/02/24 09:00 11/04/24 10:20 Aspirin 81 Mg Ectab PO 12/02/24 08:59 81 mg QAM MARBIN Administration Atorvastatin Calcium 20 mg 11/02/24 09:00 11/04/24 10:20 Atorvastatin 20 Mg Tab PO 12/02/24 08:59 20 mg QAM MARBIN Administration Clopidogrel Bisulfate 75 mg 11/02/24 09:00 11/04/24 10:20 Clopidogrel Bisulfate 75 Mg Tab PO 12/02/24 08:59 75 mg QAM MARBIN Administration Enoxaparin Sodium 40 mg 11/02/24 09:00 11/04/24 10:20 Enoxaparin Inj 40 Mg/0.4 Ml Syr SQ 12/02/24 08:59 40 mg Q12H MARBIN Administration Doxycycline Hyclate 100 mg/ 100 mls @ 50 mls/hr 11/02/24 09:00 11/04/24 12:41 Dextrose IV 11/12/24 08:59 Infused Q12H MARBIN Infusion Ceftriaxone Sodium 2,000 mg in 50 mls @ 100 mls/hr 11/02/24 22:30 11/04/24 00:04 Rocephin IV 11/12/24 22:29 Infused Q24H MARBIN Infusion Lisinopril 5 mg 11/02/24 09:00 11/03/24 09:15 Lisinopril 5 Mg Tab PO 12/02/24 08:59 5 mg QAM MARBIN Administration Metoprolol Succinate 50 mg 11/02/24 09:00 11/04/24 10:19 Metoprolol Succ 50mg Ext Rel Tab PO 12/02/24 08:59 50 mg QAM MARBIN Administration Pregabalin 25 mg 11/02/24 21:00 11/03/24 21:25 Pregabalin 25 Mg Cap PO 12/02/24 20:59 25 mg PM MARBIN Administration Vitamin D 25 mcg 11/02/24 09:00 11/04/24 10:19 Cholecalciferol 25 Mcg (1000 Units) Tab PO 12/02/24 08:59 25 mcg QAM MARBIN Administration Past Medical History Medical History Hx of non-ST elevation myocardial infarction (NSTEMI) 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 History of cardiac arrhythmia currently on amiodarone, "med works well, and no longer seems to have this problem," ICD placed in 2020; f/u baldev higgins ICD (implantable cardioverter-defibrillator) in place 2020, [facility]; 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/u baldev gann History of ischemic cardiomyopathy 2018; f/u [facility]dev [place] Idiopathic polyneuropathy Hyperlipidemia Hypertension Exercise / Class Metabolic Activity II 4-5 Yardwork/Stairs/Walk up hill Past Family History Family History Brother Myocardial infarction Father Myocardial infarction Prostate cancer Other No pertinent family history Denies family history of Ovarian cancer Breast cancer Colorectal cancer Past Surgical History Surgical History History of cataract surgery right History of implantable cardioverter-defibrillator (ICD) placement 2020, baldev [place] [employer]; 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 Hx of coronary angioplasty 2018, [facility]; f/u [facility]dev [place] Hx of fusion of cervical spine 05/26/18, [facility], C2-C5; ROM "is ok" History of cardiac cath 2018, NSTEMI, [facility], x2 stents (2 total caths in close proximity); f/u baldev [place] Status post lumbar laminectomy 12/2020, [facility], "cleaned up the stenosis, no hardware placed"; L3-L5 Past Anesthesia History No Hx of Anesthesia Complications and No Family Hx of Anesthesia Complications History of PONV No Hx of PONV and No Hx of Motion Sickness Social History Smoking Status: Never smoker Do You Dip or Chew Tobacco: No Hx Alcohol Use: No alcohol intake frequency: other Hx Substance Use: No substance use type: does not use Review of Systems denies fever/cough/ colds/ chest pain/ SOB/ KAYLEIGH denies KAYLEIGH Physical Exam Vital Signs Last Vital Signs Temp 36.4 C L 11/04/24 11:23 Pulse 80 11/04/24 11:23 Resp 16 11/04/24 11:23 BP 122/71 11/04/24 11:23 Pulse Ox 93 11/04/24 11:23 O2 Del Method Room Air 11/04/24 11:23 O2 Flow Rate 2 11/02/24 20:30 ENMT Mouth: no TMJ abnormality and no dentition abnormality Thyromental Distance: > or= 3.5 Finger Breadths Mallampati Class: II Neck neck extension not limited Respiratory normal respiratory effort; no respiratory distress Auscultation: lungs clear to auscultation bilaterally Cardiovascular Rate/Rhythm: regular rate and regular rhythm Neurologic moves all extremities Psychiatric Orientation: alert and oriented x 3 Testing Laboratory Results 11/04/24 06:47 11/04/24 06:47 Hemoglobin A1c 5.3 % (4.5-5.6) 11/02/24 05:20 Urine Color Yellow 11/01/24 21:37 Urine Appearance Clear (Clear) 11/01/24 21:37 Urine pH 5.0 (4.5-7.5) 11/01/24 21:37 Ur Specific [place] 1.016 (1.000-1.030) 11/01/24 21:37 Urine Protein Negative (Negative) 11/01/24 21:37 Urine Glucose (UA) Negative (Negative) 11/01/24 21:37 Urine Ketones Negative (Negative) 11/01/24 21:37 Urine Nitrite Negative (Negative) 11/01/24 21:37 Ur Leukocyte Esterase Negative (Negative) 11/01/24 21:37 11/01/24 22:30 Aerobic Blood Culture - Final Blood Streptococcus dysgalactiae Anaerobic Blood Culture - Final Streptococcus dysgalactiae 11/01/24 21:46 Aerobic Blood Culture - Final Blood Streptococcus dysgalactiae Anaerobic Blood Culture - Final Streptococcus dysgalactiae 11/02/24 19:31 Aerobic Blood Culture - Preliminary Blood No growth in Aerobic bottle after 24 hours. Anaerobic Blood Culture - Preliminary No growth in Anaerobic bottle after 24 hours. 11/02/24 19:31 Aerobic Blood Culture - Preliminary Blood No growth in Aerobic bottle after 24 hours. Anaerobic Blood Culture - Preliminary No growth in Anaerobic bottle after 24 hours.
[2024-11-04] MEDS ORDERED: LIDOCAINE 2% 2 ML VIAL/AMP(20MG/ML) INFIL ONE ×2 (13:44)
[2024-11-04] MEDS ORDERED: PHENYLEPHRINE 100MCG/ML 5ML SYR ONE (13:44)
--- NOTE | 2024-11-04 14:10 | Post Operative Brief Note ---
Cardiology Brief Post Op Date of Surgery November 04, 2024 Pre & Post Diagnosis Operation Date: 11/04/24 13:00 Preprocedure diagnosis: Streptococcal bacteremia, rule out vegetation Postprocedure diagnosis: No vegetation observed Procedure Transesophageal echocardiogram procedure: The patient's vital signs were monitored via the standard fashion. After informed consent was obtained and a timeout was performed the patient was sedated with the assistance of the anesthesia team. Mild to moderate aortic valve stenosis was observed with an aortic valve area by planimetry of 1.9 cm. The aortic, mitral, pulmonic, and tricuspid valves were well-visualized without evidence of vegetation. The right atrial and right ventricular pacemaker/AICD leads were adequately visualized without evidence of vegetation. 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
--- NOTE | 2024-11-04 14:18 | Anesthesiology Progress Note ---
Date of Service November 04, 2024 Anesthesia Post Procedure Vital Signs Vital Signs: Temp Pulse Resp BP Pulse Ox O2 Del Method O2 Flow Rate 11/04/24 14:10 16 122/67 95 Room Air 3 11/04/24 14:10 18 106/68 97 Room Air 3 11/04/24 14:00 18 111/71 94 Room Air 3 11/04/24 13:55 18 103/69 94 Nasal Cannula 3 11/04/24 13:45 18 124/68 94 Nasal Cannula 3 11/04/24 11:23 36.4 C L 80 16 122/71 93 Room Air 11/04/24 08:04 36.3 C L 81 20 126/73 99 Room Air 11/04/24 03:41 36.6 C 74 18 112/66 95 Room Air 11/03/24 23:16 36.4 C L 80 18 122/80 95 Room Air 11/03/24 20:30 Room Air 11/03/24 19:28 36.4 C L 78 20 112/72 96 Room Air 11/03/24 15:55 36.7 C 80 24 112/72 95 Room Air Transfer of Care Handoff Completed per policy Notes Mental Status: alert / awake / arousable and participated in evaluation Patient Amnestic to Procedure: Yes Nausea / Vomiting: adequately controlled Pain: adequately controlled Airway Patency, RR, SpO2: stable & adequate BP & HR: stable & adequate Hydration State: stable & adequate Anesthetic Complications: no major complications apparent and Pt Satisfied with anesthetic care
--- NOTE | 2024-11-04 14:51 | Hospitalist Progress Note ---
Date of Service November 04, 2024 Assessment & Plan (1) Febrile illness, acute: Plan: 74-year-old male with past medical history significant for dyslipidemia, prediabetes, congestive heart failure with reduced ejection fraction and diastolic dysfunction, history of ischemic cardiopathy, hypertension, history of CAD status post stent, history of V. tach, IVCD conduction defect, left bundle branch block, status post defibrillator, morbid obesity, osteoarthritis, who lives at home with his and ambulates with a walker comes because of fever and not feeling well. Patient says since last Saturday is not feeling well. Saturday did okay. On Saturday again he was not feeling well. Was feeling short of breath, having body aches, nauseous and had 3 bowel movements which were normal and was not getting better so EMS was called. For EMS he had temperature of 101.7 degrees. Denies any headache. Vision is okay. No runny nose. No sore throat. Has some cough. Appetite is okay. Micturating okay. Has swelling in the lower extremities which patient thinks is same as before, no increase in swelling as per patient. Hemodynamics are okay. Streptococcal bacteremia H/O posterior cervical fusion, left hip arthroplasty, AICD --Blood cultures grew Streptococcus dysgalactiae --Repeat blood cultures negative to date --ECHO: No evidence of vegetation. EF 20 to 24%.(Unchanged from prior echo in 2023) -TTE: Mild to moderate aortic valve stenosis with an aortic valve area by planimetry 1.9 cm. Aortic, mitral, pulmonic, tricuspid valves were well- visualized without evidence of vegetation. Right atrial and right ventricular pacemaker/AICD leads were adequately visualized without evidence of vegetation --Appreciate ID, cardiology input -- Empirically on Rocephin, doxycycline -- Discontinue doxycycline given Lyme screen positive only for prior infection --Will discuss with ID for final recommendations Leg cellulitis --Venous Doppler:No sonographic evidence of acute DVT was detected in the bilateral common femoral, superficial femoral, popliteal and posterior tibial, and peroneal veins at the time of examination. Bilateral complex Balderas's cysts with features suggestive of synovitis. Clinical correlation is recommended. Diffuse subcutaneous edema of the bilateral calves. Right inguinal lymph nodes are seen, the largest measuring 3.2 x 1.6 x 2.2 cm. -- Continue IV Rocephin as above --Monitor volume status --Right inguinal lymphadenopathy likely reactive to infection. May need monitoring as outpatient to ensure resolution Chronic CHF with low EF and atrial dysfunction Echo as above ACID in place Resume lisinopril as able --Consideration to be started on diuretics per cardiology Continue metoprolol Monitor volume status History of V. tach ACID Continue amiodarone, metoprolol CAD status post stents Continue aspirin, Plavix, metoprolol, atorvastatin Hypertension Resume lisinopril as able Continue metoprolol succinate Prediabetes Current HbA1c level 5.3% Morbid obesity BMI 44 Hypomagnesia replace and monitor DVT prophylaxis Lovenox SQ CODE STATUS Full code Disposition Expected discharge home when stable Admission and Anticipated Discharge Date Admission Date: November 02, 2024 Subjective Patient is seen and examined at bedside Had MIKAEL earlier today States having leg swelling associated with some erythema and discharge Denies any chest pain, dyspnea, nausea, vomiting, abdominal pain No other complaints Review of Systems Review of Systems: All systems reviewed & are unremarkable except as noted in Subjective Physical Exam Physical Exam: Physical Exam: Vitals signs as noted above General Appearance:Morbidly Obese, no apparent distress Head: normocephalic, Atraumatic Eyes: normal inspection, EOMI Neck: supple, Trachea midline Respiratory/Chest: Normal breath sounds, CTA, No accessory muscle use Cardiovascular: S1, S2, + murmur Abdomen/GI:Soft, Non tender, Bowel sounds present Extremities/Musculoskeletal:normal inspection, 3+ Edema L>R, mild erythema Neurologic/Psych:AAOX3, grossly no focal neurological deficits Skin: normal color, warm Results & Data Results & Data Vital Signs (Past 12 Hours) Vital Signs Temp Pulse Resp BP Pulse Ox O2 Del Method O2 Flow Rate 11/04/24 14:10 16 122/67 95 Room Air 3 11/04/24 14:10 18 106/68 97 Room Air 3 11/04/24 14:00 18 111/71 94 Room Air 3 11/04/24 13:55 18 103/69 94 Nasal Cannula 3 11/04/24 13:45 18 124/68 94 Nasal Cannula 3 11/04/24 11:23 36.4 C L 80 16 122/71 93 Room Air 11/04/24 08:04 36.3 C L 81 20 126/73 99 Room Air 11/04/24 03:41 36.6 C 74 18 112/66 95 Room Air Laboratory Results Short CBC 11/04/24 Range/Units 06:47 WBC 7.83 (4.8-10.8) K/ul Hgb 13.9 L (14.0-18.0) g/dl Hct 42.9 (42.0-52.0) % Plt Count 119 L (130-400) K/uL BMP 11/04/24 06:47 Sodium 136 Potassium 4.5 Chloride 104 Carbon Dioxide 28 BUN 23 Creatinine 0.82 Glucose 128 H Calcium 8.4 L
[2024-11-04] MEDS: BENZOCAINE/TETRACAIN/BUTAM 50 APPLN/5 GM CAN EXT ONE (15:48)
--- NOTE | 2024-11-04 16:21 | Communication Note ---
Date of Service: November 04, 2024 No valvular vegetation on transesophageal echocardiogram, all device leads visualized without vegetation. Plan: Continue Rocephin Start low-dose diuretic therapy tomorrow Per patient request, I updated his spouse, Alicia, by phone.
[2024-11-05] MEDS: FUROSEMIDE INJ 20 MG/2 ML VIAL IV SCH (06:04)
[2024-11-05 08:26] LABS: Hematocrit (blood only) 47.1 % (42.0-52.0); Hemoglobin 15.3 g/dl (14.0-18.0); Mean Corpuscular Hemoglobin 30.1 pg (25.0-34.0); Mean Corpuscular Volume 92.5 fL (80.0-100.0); Platelet Count 127 K/uL (130-400); RDW Standard Deviation 48.3 fL (36.4-46.3); Red Blood Count 5.09 M/uL (4.70-6.10); White Blood Count 6.33 K/ul (4.8-10.8)
[2024-11-05] MEDS: POTASSIUM CHLORIDE CRTAB 20 MEQ TABCR PO SCH (08:37)
[2024-11-05 08:52] LABS: Anion Gap 3.0 (3-11); Blood Urea Nitrogen 18.0 mg/dl (6-23); Calcium 8.6 mg/dl (8.6-10.3); Carbon Dioxide 31.0 mmol/L (21-32); Chloride 105.0 mmol/L (98-107); Creatinine Clr Calc Pharmacy 106.8 ml/min; Glucose 108.0 mg/dl (70-99(Fasting)); Potassium 4.6 mmol/L (3.5-5.1); Sodium 139.0 mmol/L (136-145)
--- NOTE | 2024-11-05 11:32 | Cardiology Progress Note ---
Date of Service November 05, 2024 Assessment & Plan (1) Streptococcal bacteremia: Plan: * 2 /2 blood cultures obtained on arrival 11/01/2024, 22:30 positive for Streptococcus dysgalactiae. Repeat blood cultures x 2 obtained 11/02/24 with no growth thus far source likely left LE cellulitis * MIKAEL 11/04/24, negative for vegetation * Continue Rocephin (2) Positive Lyme disease serology: Plan: * IgG positive with negative IgM, doubtful that this is the source of his fever given streptococcal bacteremia (3) Chronic heart failure with reduced ejection fraction (HFrEF, <= 40%): Plan: * Patient with chronic Heart failure with reduced ejection fraction due to ischemic cardiomyopathy with subacute fluid retention * LVEF in the range of 20-24% (unchanged compared to previous) * Underwent biventricular pacemaker/AICD in 2020 and is biventricular paced greater than 98% the time. Also has a history of paroxysmal ventricular tachycardia for which she is on amiodarone and has had breakthrough episodes within the last months as noted on recent device interrogation. LFTs and TSH within normal limits this stay. * Continue amiodarone and metoprolol doses as per outpatient regimen. * Hold lisinopril 5 mg daily in an effort to allow for more blood pressure with regards to sepsis, need for diuretics, need for sedation * Furosemide 20 IV BID started am of 11/05 Admission and Anticipated Discharge Date Admission Date: November 02, 2024 Subjective Patient seen in follow-up. Notes feeling well in general. Still with bilateral lower extremity edema and erythema of the left lower leg. Feels much improved compared to when he came to the hospital. Afebrile. Telemetry reveals sinus rhythm with AV pacing in the 80s. Review of Systems Review of Systems: All systems reviewed & are unremarkable except as noted in HPI & below Physical Exam Physical Exam: Temp Pulse Resp BP Pulse Ox O2 Del Method O2 Flow Rate 36.4 C L 81 20 122/76 97 Room Air 3 11/05/24 11:11/05/24 11:11/05/24 11:11/05/24 11:11/05/24 11:11/05/24 11:11/04/24 14:10 Constitutional: + ill appearing and + obese; no acute di stress Eyes: PERRL, conjunctivae normal, anicteric sclerae Neck: trachea midline Respiratory: no cough Auscultation: + diminished lung sounds (Mildly decreased breath sounds at the bases bilateral); no crackles and no wheezes Cardiovascular: Rate/Rhythm: regular rhythm Heart Sounds: + murmur (1/6 systolic murmur) Extremities: + edema (3+ bilateral lower extremity edema, left worse than right, with lower leg e) Gastrointestinal (Abdomen): normal bowel sounds, soft, nontender, no hepatosplenomegaly Neurologic: PERRL, EOMI, accommodation nl, no face palsy, no dysarthria Results & Data Laboratory Results CBC 11/05/24 Range/Units 07:59 WBC 6.33 (4.8-10.8) K/ul RBC 5.09 (4.70-6.10) M/uL Hgb 15.3 (14.0-18.0) g/dl Hct 47.1 (42.0-52.0) % Plt Count 127 L (130-400) K/uL Comprehensive Metabolic Panel 11/05/24 Range/Units 07:59 Sodium 139 (136-145) mmol/L Potassium 4.6 (3.5-5.1) mmol/L Chloride 105 (98-107) mmol/L Carbon Dioxide 31 (21-32) mmol/L BUN 18 (6-23) mg/dl Creatinine 0.74 (0.6-1.4) mg/dl Glucose 108 H (70-99(Fasting)) mg/dl Calcium 8.6 (8.6-10.3) mg/dl Coding [place] [address] SUB INP/OBS CARE 2/35MIN Patient Type Established History Expanded Problem Focused Exam Expanded Problem Focused Diagnoses Streptococcal bacteremia R78.81; B95.5 Positive Lyme disease serology R76.8 Chronic heart failure with reduced ejection fraction (HFrEF, <= 40%) I50.22
[2024-11-05] MEDS: MAGNESIUM SULFATE / D5W 1 GM/100 ML BAG IV ONE (12:18)
--- NOTE | 2024-11-05 14:10 | Hospitalist Progress Note ---
Date of Service November 05, 2024 Assessment & Plan (1) Febrile illness, acute: Plan: 74-year-old male with past medical history significant for dyslipidemia, prediabetes, congestive heart failure with reduced ejection fraction and diastolic dysfunction, history of ischemic cardiopathy, hypertension, history of CAD status post stent, history of V. tach, IVCD conduction defect, left bundle branch block, status post defibrillator, morbid obesity, osteoarthritis, who lives at home with his and ambulates with a walker comes because of fever and not feeling well. Patient says since last Saturday is not feeling well. Saturday did okay. On Saturday again he was not feeling well. Was feeling short of breath, having body aches, nauseous and had 3 bowel movements which were normal and was not getting better so EMS was called. For EMS he had temperature of 101.7 degrees. Denies any headache. Vision is okay. No runny nose. No sore throat. Has some cough. Appetite is okay. Micturating okay. Has swelling in the lower extremities which patient thinks is same as before, no increase in swelling as per patient. Hemodynamics are okay. Streptococcal bacteremia/Sepsis--POA H/O posterior cervical fusion, left hip arthroplasty, AICD --Blood cultures grew Streptococcus dysgalactiae --Repeat blood cultures negative to date --ECHO: No evidence of vegetation. EF 20 to 24%.(Unchanged from prior echo in 2023) -TTE: Mild to moderate aortic valve stenosis with an aortic valve area by planimetry 1.9 cm. Aortic, mitral, pulmonic, tricuspid valves were well- visualized without evidence of vegetation. Right atrial and right ventricular pacemaker/AICD leads were adequately visualized without evidence of vegetation --Appreciate ID, cardiology input -- Empirically on Rocephin, doxycycline>> Rocephin -- Discontinue doxycycline given Lyme screen positive only for prior infection -- Discussed with infectious disease on 11/05/2024: Recommends 4-week course of IV ceftriaxone from last negative blood cultures --Will need PICC line prior to discharge Leg cellulitis --Venous Doppler:No sonographic evidence of acute DVT was detected in the bilateral common femoral, superficial femoral, popliteal and posterior tibial, and peroneal veins at the time of examination. Bilateral complex Balderas's cysts with features suggestive of synovitis. Clinical correlation is recommended. Diffuse subcutaneous edema of the bilateral calves. Right inguinal lymph nodes are seen, the largest measuring 3.2 x 1.6 x 2.2 cm. -- Continue IV Rocephin as above --Monitor volume status --Right inguinal lymphadenopathy likely reactive to infection. May need mo nitoring as outpatient to ensure resolution Chronic CHF with low EF and atrial dysfunction Echo as above ACID in place Resume lisinopril as able --Consideration to be started on diuretics per cardiology Continue metoprolol Monitor volume status --Continue IV Lasix 20 mg twice a day as recommended by cardiology History of V. tach ACID Continue amiodarone, metoprolol Had an episode of NSVT today. Asymptomatic Monitor and replete electrolytes as needed CAD status post stents Continue aspirin, Plavix, metoprolol, atorvastatin Hypertension Resume lisinopril as able Continue metoprolol succinate Prediabetes Current HbA1c level 5.3% Morbid obesity BMI 44 Hypomagnesia replace and monitor DVT prophylaxis Lovenox SQ CODE STATUS Full code Disposition Expected discharge home when stable Admission and Anticipated Discharge Date Admission Date: November 02, 2024 Subjective Patient is seen and examined at bedside Leg edema, erythema slowly improving Sitting in chair during my encounter Offers no other complaints Discussed with cardiology, infectious disease today Denies any chest pain, dyspnea, nausea, vomiting, abdominal pain Review of Systems Review of Systems: All systems reviewed & are unremarkable except as noted in Subjective Physical Exam Physical Exam: Physical Exam: Vitals signs as noted above General Appearance:Morbidly Obese, no apparent distress Head: normocephalic, Atraumatic Eyes: normal inspection, EOMI Neck: supple, Trachea midline Respiratory/Chest: Normal breath sounds, CTA, No accessory muscle use Cardiovascular: S1, S2, + murmur Abdomen/GI:Soft, Non tender, Bowel sounds present Extremities/Musculoskeletal:normal inspection, 3+ Edema L>R, mild erythema Neurologic/Psych:AAOX3, grossly no focal neurological deficits Skin: normal color, warm Results & Data Results & Data Vital Signs (Past 12 Hours) Vital Signs Temp Pulse Resp BP BP Pulse Ox O2 Del Method 11/05/24 11:32 Room Air 11/05/24 11:23 36.4 C L 81 20 122/76 97 Room Air 11/05/24 07:19 36.3 C L 82 20 124/77 95 Room Air 11/05/24 03:47 36.3 C L 89 18 116/73 96 Room Air Laboratory Results Short CBC 11/05/24 Range/Units 07:59 WBC 6.33 (4.8-10.8) K/ul Hgb 15.3 (14.0-18.0) g/dl Hct 47.1 (42.0-52.0) % Plt Count 127 L (130-400) K/uL BMP 11/05/24 07:59 Sodium 139 Potassium 4.6 Chloride 105 Carbon Dioxide 31 BUN 18 Creatinine 0.74 Glucose 108 H Calcium 8.6
[2024-11-06 07:56] LABS: Anion Gap 6.0 (3-11); Blood Urea Nitrogen 18.0 mg/dl (6-23); Calcium 8.5 mg/dl (8.6-10.3); Carbon Dioxide 29.0 mmol/L (21-32); Chloride 104.0 mmol/L (98-107); Creatinine Clr Calc Pharmacy 110.2 ml/min; Glucose 113.0 mg/dl (70-99(Fasting)); Magnesium 1.7 mg/dl (1.7-2.4); Potassium 4.4 mmol/L (3.5-5.1); Sodium 139.0 mmol/L (136-145)
--- NOTE | 2024-11-06 09:14 | Cardiology Progress Note ---
Date of Service November 06, 2024 Assessment & Plan (1) Streptococcal bacteremia: Plan: * 2/2 blood cultures obtained on arrival 11/01/2024, 22:30 positive for Streptococcus dysgalactiae. Repeat blood cultures x 2 obtained 11/02/24 with no growth thus far. * MIKAEL 11/04/24, negative for vegetation * h/o spinal hardware, but denies neck or back pain. * Source likely left LE cellulitis * ID input noted and appreciated. Dr Arvizu had discussed case with infectious disease on 11/05/2024: Recommended 4-week course of IV ceftriaxone from last negative blood cultures. Will need PICC line prior to discharge (2) Positive Lyme disease serology: Plan: * IgG positive with negative IgM, doubtful that this is the source of his fever given streptococcal bacteremia (3) Chronic heart failure with reduced ejection fraction (HFrEF, <= 40%): Plan: * Patient with chronic Heart failure with reduced ejection fraction due to ischemic cardiomyopathy with subacute fluid retention * LVEF in the range of 20-24% (unchanged compared to previous) * Underwent biventricular pacemaker/AICD in 2020 and is biventricular paced greater than 98% the time. Also has a history of paroxysmal ventricular tachycardia for which he is on amiodarone and has had breakthrough episodes within the last few months as noted on recent device interrogation. LFTs and TSH within normal limits this stay. * Continue amiodarone and metoprolol doses as per outpatient regimen. * Hold lisinopril 5 mg daily in an effort to allow for more blood pressure with regards to sepsis, need for diuretics, need for sedation * Furosemide 20 IV BID started am of 11/05. SBP ~100 mm Hg, renal function and electrolytes stable. Increase furosemide to 40 mg IV BID at 7 am and 14:00. * Lovenx SQ for DVT prophylaxis. Admission and Anticipated Discharge Date Admission Date: November 02, 2024 Subjective Patient seen in cardiology follow up. Spouse, Alicia, his spouse accompanies him at the bedside today. Denies subjective fevers and chills. Leg edema minimally improved. Still with significant amount of left lower extremity edema. SR with AV sequential pacing on telemetry. Review of Systems Review of Systems: All systems reviewed & are unremarkable except as noted in HPI & below Physical Exam Physical Exam: Temp Pulse Resp BP Pulse Ox O2 Del Method O2 Flow Rate 36.5 C 81 18 100/58 L 94 Room Air 3 11/06/24 07:42 11/06/24 08:04 11/06/24 07:42 11/06/24 07:42 11/06/24 07:42 11/06/24 07:42 11/04/24 14:10 Constitutional: + ill appearing and + obese; no acute di stress Eyes: PERRL, conjunctivae normal, anicteric sclerae Neck: trachea midline Respiratory: no cough Auscultation: + diminished lung sounds (Mildly decreased breath sounds at the bases bilateral); no crackles and no wheezes Cardiovascular: Rate/Rhythm: regular rhythm Heart Sounds: + murmur (1/6 systolic murmur) Extremities: + edema (3+ bilateral lower extremity edema, left worse than right, with lower leg e) Gastrointestinal (Abdomen): normal bowel sounds, soft, nontender, no hepatosplenomegaly Neurologic: PERRL, EOMI, accommodation nl, no face palsy, no dysarthria Results & Data Vital Signs (Past 12 Hours) Vital Signs Temp Pulse Pulse Resp BP Pulse Ox O2 Del Method 11/06/24 08:04 81 11/06/24 07:42 36.5 C 80 18 100/58 L 94 Room Air 11/06/24 04:00 36.7 C 85 18 105/71 97 Room Air 11/06/24 00:12 80 11/05/24 22:58 36.6 C 82 20 106/66 95 Room Air 11/05/24 22:38 Room Air PG Care Time/CCT Total # of Minutes Spent Total Time Spent with Patient: Total time spent is greater than 50% in coordination of care (as documented) at patient's floor/unit and/or counseling patient: Coding [place] [address] SUB INP/OBS CARE 3/50MIN Patient Type Established History Comprehensive Exam Comprehensive Medical Decision Making High Complexity Diagnoses Streptococcal bacteremia R78.81; B95.5 Positive Lyme disease serology R76.8 Chronic heart failure with reduced ejection fraction (HFrEF, <= 40%) I50.22
[2024-11-06] MEDS: FUROSEMIDE INJ 20 MG/2 ML VIAL IV STA (09:40)
[2024-11-06] MEDS: FUROSEMIDE INJ 20 MG/2 ML VIAL IV SCH (13:18)
--- NOTE | 2024-11-06 13:55 | Hospitalist Progress Note ---
Date of Service November 06, 2024 Assessment & Plan (1) Febrile illness, acute: Plan: 74-year-old male with past medical history significant for dyslipidemia, prediabetes, congestive heart failure with reduced ejection fraction and diastolic dysfunction, history of ischemic cardiopathy, hypertension, history of CAD status post stent, history of V. tach, IVCD conduction defect, left bundle branch block, status post defibrillator, morbid obesity, osteoarthritis, who lives at home with his and ambulates with a walker comes because of fever and not feeling well. Patient says since last Saturday is not feeling well. Saturday did okay. On Saturday again he was not feeling well. Was feeling short of breath, having body aches, nauseous and had 3 bowel movements which were normal and was not getting better so EMS was called. For EMS he had temperature of 101.7 degrees. Denies any headache. Vision is okay. No runny nose. No sore throat. Has some cough. Appetite is okay. Micturating okay. Has swelling in the lower extremities which patient thinks is same as before, no increase in swelling as per patient. Hemodynamics are okay. Streptococcal bacteremia/Sepsis--POA H/O posterior cervical fusion, left hip arthroplasty, AICD --Blood cultures grew Streptococcus dysgalactiae --Repeat blood cultures negative to date --ECHO: No evidence of vegetation. EF 20 to 24%.(Unchanged from prior echo in 2023) -TTE: Mild to moderate aortic valve stenosis with an aortic valve area by planimetry 1.9 cm. Aortic, mitral, pulmonic, tricuspid valves were well- visualized without evidence of vegetation. Right atrial and right ventricular pacemaker/AICD leads were adequately visualized without evidence of vegetation --Appreciate ID, cardiology input -- Empirically on Rocephin, doxycycline>> Rocephin -- Discontinue doxycycline given Lyme screen positive only for prior infection -- Discussed with infectious disease on 11/05/2024: Recommends 4-week course of IV ceftriaxone from last negative blood cultures --Will need PICC line prior to discharge Continue IV antibiotics as above Leg cellulitis --Venous Doppler:No sonographic evidence of acute DVT was detected in the bilateral common femoral, superficial femoral, popliteal and posterior tibial, and peroneal veins at the time of examination. Bilateral complex Balderas's cysts with features suggestive of synovitis. Clinical correlation is recommended. Diffuse subcutaneous edema of the bilateral calves. Right inguinal lymph nodes are seen, the largest measuring 3.2 x 1.6 x 2.2 cm. -- Continue IV Rocephin as above --Monitor volume status --Right inguinal lymphadenopathy likely reactive to infection. May need monitoring as outpatient to ensure resolution No signs of sepsis currently Chronic CHF with low EF and atrial dysfunction Echo as above ACID in place Resume lisinopril as able --Consideration to be started on diuretics per cardiology Continue metoprolol Monitor volume status -- Increased IV Lasix to 40 mg twice a day Needs follow-up with cardiology on discharge Monitor and replete electrolytes as needed History of V. tach ACID Continue amiodarone, metoprolol Had an episode of NSVT today. Asymptomatic Monitor and replete electrolytes as needed CAD status post stents Continue aspirin, Plavix, metoprolol, atorvastatin Hypertension Resume lisinopril as able Continue metoprolol succinate Prediabetes Current HbA1c level 5.3% Morbid obesity BMI 44 Hypomagnesia replace and monitor DVT prophylaxis Lovenox SQ CODE STATUS Full code Disposition Expected discharge home when stable Admission and Anticipated Discharge Date Admission Date: November 02, 2024 Subjective Patient is seen and examined at bedside No new complaints Still has significant lower extremity edema Denies any chest pain, dyspnea, nausea, vomiting, abdominal pain Also denies any leg pain today Review of Systems Review of Systems: All systems reviewed & are unremarkable except as noted in Subjective Physical Exam Physical Exam: Physical Exam: Vitals signs as noted above General Appearance:Morbidly Obese, no apparent distress Head: normocephalic, Atraumatic Eyes: normal inspection, EOMI Neck: supple, Trachea midline Respiratory/Chest: Normal breath sounds, CTA, No accessory muscle use Cardiovascular: S1, S2, + murmur Abdomen/GI:Soft, Non tender, Bowel sounds present Extremities/Musculoskeletal:normal inspection, 3+ Edema L>R, mild erythema Neurologic/Psych:AAOX3, grossly no focal neurological deficits Skin: normal color, warm Results & Data Results & Data Vital Signs (Past 12 Hours) Vital Signs Temp Pulse Pulse Resp BP Pulse Ox O2 Del Method 11/06/24 11:29 36.5 C 76 18 102/67 94 Room Air 11/06/24 09:00 Room Air 11/06/24 08:04 81 11/06/24 07:42 36.5 C 80 18 100/58 L 94 Room Air 11/06/24 04:00 36.7 C 85 18 105/71 97 Room Air Laboratory Results BMP 11/06/24 07:13 Sodium 139 Potassium 4.4 Chloride 104 Carbon Dioxide 29 BUN 18 Creatinine 0.71 Glucose 113 H Calcium 8.5 L
[2024-11-07 08:08] LABS: Anion Gap 5.0 (3-11); Blood Urea Nitrogen 22.0 mg/dl (6-23); Calcium 8.3 mg/dl (8.6-10.3); Carbon Dioxide 32.0 mmol/L (21-32); Chloride 105.0 mmol/L (98-107); Creatinine Clr Calc Pharmacy 93.5 ml/min; Glucose 101.0 mg/dl (70-99(Fasting)); Magnesium 1.8 mg/dl (1.7-2.4); Potassium 4.3 mmol/L (3.5-5.1); Sodium 142.0 mmol/L (136-145)
--- NOTE | 2024-11-07 09:20 | Cardiology Progress Note ---
Date of Service November 07, 2024 Assessment & Plan (1) Streptococcal bacteremia: (2) Bilateral lower leg cellulitis: (3) Heart failure, systolic, with acute decompensation: (4) Ischemic cardiomyopathy: (5) Acute Lyme disease: Plan Admitted with generalized febrille illness Initial cultures on 11/01/2024 with streptococcus dysgalactiae Repeat cultures obtained on 11/02/2024 are without growth after 48 hours History of device. November 04, 2024 MIKAEL negative for vegetation History of spinal hardware. No neck or back pain Suspected source: left lower extremity cellulitis 4-week course of IV ceftriaxone from last negative blood cultures recommended Will need PICC line prior to discharge Acute decompensated systolic congestive heart failure Known severe ischemic cardiomyopathy. NURSE HEAD of RCA h/o PCI to prox LAD and diagonal 1 in 05/2017 at [facility] then a repeat cath 01/2018 for NSTEMI with patent LAD, diagonal 1 stents, stenosis of the apical LAD not amenable for PCI, medical management performed, NURSE HEAD of RCA remonstrated LVEF 20 to 24%, unchanged compared to prior Status post BiV ICD implantation in 2020 History of paroxysmal ventricular tachycardia for which patient is prescribed amiodarone; TFTs and LFTs okay this admission Volume status: Hypervolemic * Continue IV diuresis with furosemide at 40 mg twice per day * Lisinopril on hold due to mild hypotension * Patient was not prescribed diuretic prior to arrival * Will likely need loop diuretic +/- spironolactone on discharge Aortic stenosis. * Mild to moderate via November 04, 2024 transesophageal echocardiography. Estimated aortic valve area 1.9 cm. * Follow routinely. Admission and Anticipated Discharge Date Admission Date: November 02, 2024 Supervising Physician Co-Signing Physician Notes I have personally performed a history and physical examination on the patient. I have reviewed the advance practitioner's documentation, and I agree with, and take responsibility for the plan of care. 74-year-old male with streptococcal bacteremia, lower extremity cellulitis, and acute on chronic heart failure with reduced ejection fraction. Continue IV diuresis. Maintain negative fluid balance, 3 to 5 L daily. Monitor daily weight, GFR, and electrolytes. Maintain serum potassium greater than 4.0, and serum magnesium greater than 2.0. Patient will likely require maintenance loop diuretic therapy plus minus spironolactone at time of discharge. Continue to hold JESSICA inhibitor due to borderline hypotension. Iftikhar Raya DO, [facility] Subjective Patient seen and examined. Chart, medications, telemetry reviewed. Feeling better. Notes the legs are less angry and less swollen. Breathing has improved. No chest pain, palpitations, fevers, chills, or PND Fluid balance -3380 mL over the last 24 hours Telemetry: Paced in the 80s Review of Systems Review of Systems: Complete review of systems is otherwise as stated above, negative, or noncontributory Physical Exam Physical Exam: General: NAD. HENT: Normocephalic. Atraumatic. Eyes: PER. Conjunctiva pink, sclera clear. Neck: JVD. Heart: Regular, paced. Grade II/ systolic murmur. Lungs: Diminished. Bibasilar rales. No wheeze. Abdomen: +BS. Soft. Nontender. No masses or organomegaly. Extremities: Moderate left greater than right lower extremity erythema, cellulitis. 2-3+ edema. Limited neurological examination is without focal deficits. Results & Data Vital Signs (Past 12 Hours) Vital Signs Temp Pulse Pulse Resp BP Pulse Ox O2 Del Method 11/07/24 08:04 36.4 C L 84 18 104/68 94 Room Air 11/07/24 04:23 36.4 C L 81 20 108/65 94 Room Air 11/07/24 00:24 36.6 C 78 20 104/69 93 Room Air 11/06/24 22:57 90 11/06/24 21:54 Room Air Laboratory Results Comprehensive Metabolic Panel 11/07/24 Range/Units 06:32 Sodium 142 (136-145) mmol/L Potassium 4.3 (3.5-5.1) mmol/L Chloride 105 (98-107) mmol/L Carbon Dioxide 32 (21-32) mmol/L BUN 22 (6-23) mg/dl Creatinine 0.83 (0.6-1.4) mg/dl Glucose 101 H (70-99(Fasting)) mg/dl Calcium 8.3 L (8.6-10.3) mg/dl Intake and Output 11/06/24 11/07/24 11/07/24 22:59 06:59 14:59 Intake Total 370 / 770 400 / 770 Output Total 925 / 4150 1100 / 4150 Balance -555 / -3380 -700 / -3380 Intake: IV 50 / 50 cefTRIAXone SODIUM 2,000 mg In 50 / 50 50 ml @ 100 mls/hr IV Q24H [facility] Rx#:[id number] Oral 320 / 720 400 / 720 Output: Urine 925 / 4150 1100 / 4150 Other: Weight 119.2 kg Weight Measurement Method Built in [facility] Diagnostic Findings November 04, 2024 transesophageal echocardiogram: Findings consistent with the patient's known history of ischemic cardiomyopathy with left ventricular ejection fraction in the range of 20 to 24%. No evidence of valvular vegetation or vegetation on the automatic implantable cardioverter defibrillator leads. Mildly calcified trileaflet aortic valve with mild to moderate aortic valve stenosis, without aortic valve regurgitation. PG Care Time/CCT Total # of Minutes Spent Total Time Spent with Patient: Total time spent is greater than 50% in coordination of care (as documented) at patient's floor/unit and/or counseling patient: Coding Level of Care Code 57512 SUB INP/OBS CARE 3/50MIN Diagnoses Streptococcal bacteremia R78.81; B95.5 Bilateral lower leg cellulitis L03.116; L03.115 Heart failure, systolic, with acute decompensation I50.23 Ischemic cardiomyopathy I25.5 Acute Lyme disease A69.20
--- NOTE | 2024-11-07 14:25 | Hospitalist Progress Note ---
Date of Service November 07, 2024 Assessment & Plan (1) Febrile illness, acute: Plan: 74-year-old male with past medical history significant for dyslipidemia, prediabetes, congestive heart failure with reduced ejection fraction and diastolic dysfunction, history of ischemic cardiopathy, hypertension, history of CAD status post stent, history of V. tach, IVCD conduction defect, left bundle branch block, status post defibrillator, morbid obesity, osteoarthritis, who lives at home with his and ambulates with a walker comes because of fever and not feeling well. Patient says since last Saturday is not feeling well. Saturday did okay. On Saturday again he was not feeling well. Was feeling short of breath, having body aches, nauseous and had 3 bowel movements which were normal and was not getting better so EMS was called. For EMS he had temperature of 101.7 degrees. Denies any headache. Vision is okay. No runny nose. No sore throat. Has some cough. Appetite is okay. Micturating okay. Has swelling in the lower extremities which patient thinks is same as before, no increase in swelling as per patient. Hemodynamics are okay. Streptococcal bacteremia/Sepsis--POA H/O posterior cervical fusion, left hip arthroplasty, AICD --Blood cultures grew Streptococcus dysgalactiae --Repeat blood cultures negative to date --ECHO: No evidence of vegetation. EF 20 to 24%.(Unchanged from prior echo in 2023) -TTE: Mild to moderate aortic valve stenosis with an aortic valve area by planimetry 1.9 cm. Aortic, mitral, pulmonic, tricuspid valves were well- visualized without evidence of vegetation. Right atrial and right ventricular pacemaker/AICD leads were adequately visualized without evidence of vegetation --Appreciate ID, cardiology input -- Empirically on Rocephin, doxycycline>> Rocephin -- Discontinue doxycycline given Lyme screen positive only for prior infection -- Discussed with infectious disease on 11/05/2024: Recommends 4-week course of IV ceftriaxone from last negative blood cultures --Will need PICC line prior to discharge Continue IV antibiotics as above Will need weekly blood work while on IV antibiotics Leg cellulitis --Venous Doppler:No sonographic evidence of acute DVT was detected in the bilateral common femoral, superficial femoral, popliteal and posterior tibial, and peroneal veins at the time of examination. Bilateral complex Balderas's cysts with features suggestive of synovitis. Clinical correlation is recommended. Diffuse subcutaneous edema of the bilateral calves. Right inguinal lymph nodes are seen, the largest measuring 3.2 x 1.6 x 2.2 cm. -- Continue IV Rocephin as above --Monitor volume status --Right inguinal lymphadenopathy likely reactive to infection. May need monitoring as outpatient to ensure resolution No signs of sepsis currently Slowly improving Chronic CHF with low EF and atrial dysfunction Echo as above ACID in place Resume lisinopril as able --Consideration to be started on diuretics per cardiology Continue metoprolol Monitor volume status -- Increased IV Lasix to 40 mg twice a day Needs follow-up with cardiology on discharge Monitor and replete electrolytes as needed Continue diuresis as recommended by cardiology History of V. tach ACID Continue amiodarone, metoprolol Had an episode of NSVT today. Asymptomatic Monitor and replete electrolytes as needed CAD status post stents Continue aspirin, Plavix, metoprolol, atorvastatin Hypertension Resume lisinopril as able Continue metoprolol succinate Monitor blood pressure Prediabetes Current HbA1c level 5.3% Morbid obesity BMI 44 Hypomagnesia replace and monitor DVT prophylaxis Lovenox SQ CODE STATUS Full code Disposition Expected discharge home when stable Admission and Anticipated Discharge Date Admission Date: November 02, 2024 Subjective Patient is seen and examined at bedside Leg edema, erythema slowly improving Discussed with patient's family at bedside Denies any chest pain, dyspnea, nausea, vomiting, abdominal pain No other complaints today Review of Systems Review of Systems: All systems reviewed & are unremarkable except as noted in Subjective Physical Exam Physical Exam: Physical Exam: Vitals signs as noted above General Appearance:Morbidly Obese, no apparent distress Head: normocephalic, Atraumatic Eyes: normal inspection, EOMI Neck: supple, Trachea midline Respiratory/Chest: Normal breath sounds, CTA, No accessory muscle use Cardiovascular: S1, S2, + murmur Abdomen/GI:Soft, Non tender, Bowel sounds present Extremities/Musculoskeletal:normal inspection, 3+ Edema L>R, mild erythema Neurologic/Psych:AAOX3, grossly no focal neurological deficits Skin: normal color, warm Results & Data Results & Data Vital Signs (Past 12 Hours) Vital Signs Temp Pulse Resp BP Pulse Ox O2 Del Method 11/07/24 11:19 Room Air 11/07/24 11:16 36.5 C 71 18 106/65 95 Room Air 11/07/24 08:04 36.4 C L 84 18 104/68 94 Room Air 11/07/24 04:23 36.4 C L 81 20 108/65 94 Room Air Laboratory Results [facility] 11/07/24 06:32 Sodium 142 Potassium 4.3 Chloride 105 Carbon Dioxide 32 BUN 22 Creatinine 0.83 Glucose 101 H Calcium 8.3 L
[2024-11-08 06:44] LABS: Hematocrit (blood only) 42.0 % (42.0-52.0); Hemoglobin 14.0 g/dl (14.0-18.0); Mean Corpuscular Hemoglobin 30.2 pg (25.0-34.0); Mean Corpuscular Volume 90.7 fL (80.0-100.0); Platelet Count 150 K/uL (130-400); RDW Standard Deviation 46.2 fL (36.4-46.3); Red Blood Count 4.63 M/uL (4.70-6.10); White Blood Count 6.90 K/ul (4.8-10.8)
[2024-11-08 06:59] LABS: Anion Gap 4.0 (3-11); Blood Urea Nitrogen 28.0 mg/dl (6-23); Calcium 8.1 mg/dl (8.6-10.3); Carbon Dioxide 33.0 mmol/L (21-32); Chloride 103.0 mmol/L (98-107); Creatinine Clr Calc Pharmacy 94.1 ml/min; Glucose 104.0 mg/dl (70-99(Fasting)); Magnesium 1.9 mg/dl (1.7-2.4); Potassium 4.2 mmol/L (3.5-5.1); Sodium 140.0 mmol/L (136-145)
--- NOTE | 2024-11-08 09:04 | Cardiology Progress Note ---
Date of Service November 08, 2024 Assessment & Plan (1) Streptococcal bacteremia: (2) Bilateral lower leg cellulitis: (3) Heart failure, systolic, with acute decompensation: (4) Ischemic cardiomyopathy: (5) Acute Lyme disease: Plan Admitted with generalized febrile illness Initial cultures obtained on 11/01/2024 grew streptococcus dysgalactiae Repeat cultures obtained on 11/02/2024 without growth BiV ICD implanted in 2020. November 04, 2024 MIKAEL negative for vegetation History of spinal hardware. No back pain Suspected source: left lower extremity cellulitis 4-week course of IV ceftriaxone from last negative blood cultures recommended Acute decompensated systolic congestive heart failure Known severe ischemic cardiomyopathy. 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 PCI to prox LAD and diagonal in 05/2017 at [facility]. Repeat cath 01/2018 for NSTEMI with patent LAD, diagonal 1 stents, stenosis of the apical LAD not amenable for PCI LVEF 20 to 24%, unchanged compared to prior Status post BiV ICD implantation in 2020 History of paroxysmal ventricular tachycardia for which patient is prescribed amiodarone; TFTs and LFTs okay this admission Volume status: Improving but ongoing hypervolemia. * Continue IV diuresis with furosemide at 40 mg twice per day through today, holding in AM until evaluated and labs reviewed. * Lisinopril remains on hold due to hypotension * Patient was not prescribed diuretic prior to arrival * Will likely need loop diuretic +/- spironolactone on discharge Aortic stenosis. * Mild to moderate via November 04, 2024 transesophageal echocardiography (estimated aortic valve area 1.9 cm). * Follow routinely. Admission and Anticipated Discharge Date Admission Date: November 02, 2024 Supervising Physician Co-Signing Physician Notes I have personally performed a history and physical examination on the patient. I have reviewed the advance practitioner's documentation, and I agree with, and take responsibility for the plan of care. 74-year-old male with streptococcal bacteremia, lower extremity cellulitis, and acute on chronic heart failure with reduced ejection fraction. Continue IV diuresis. Hold dose of Lasix and potassium supplement tomorrow 11/09/2024 pending review of a.m. labs. Monitor daily weight, GFR, and electrolytes. Maintain serum potassium greater than 4.0, and serum magnesium greater than 2.0. Patient will require maintenance loop diuretic therapy +/- spironolactone at time of discharge. Continue to hold JESSICA inhibitor due to borderline hypotension. Iftikhar Raya DO [facility] I spent a total of 30 minutes on the date of service in preparation, delivery, and documentation of the care provided to this patient, excluding any time spent in the performance of separately billed services. Subjective Patient seen and examined. Chart, medications, telemetry reviewed. Feeling better. Awaiting breakfast. Breathing has considerably improved. Fluid continues to improve. Notes that the (left) leg is less angry today as compared to yesterday. No chest pain. No palpitations. No fevers. No chills. No difficulty with urination or bowels. Fluid balance over the last three days: -890, -3,340, -2,360. Cumulative fluid balance throughout hospitalization: -8,401 mL's. Review of Systems Review of Systems: Complete review of systems is otherwise as stated above, negative, or noncontributory Physical Exam Physical Exam: General: NAD. HENT: Normocephalic. Atraumatic. Eyes: PER. Conjunctiva pink, sclera clear. Neck: JVD. Heart: Regular, paced. Grade II/ systolic murmur. Lungs: Diminished. Decreased at the bases. + Bibasilar rales. No wheeze. Abdomen: +BS. Soft. Nontender. No masses or organomegaly. Extremities: 2+ left greater than right lower extremity edema. Improving left lower extremity erythema/cellulitis. Limited neurological examination is without focal deficits. Results & Data Vital Signs (Past 12 Hours) Vital Signs Temp Pulse Pulse Resp BP BP Pulse Ox 11/08/24 08:20 36.3 C L 80 20 106/71 94 11/08/24 02:07 36.3 C L 84 16 107/61 91 11/08/24 00:23 36.8 C 80 20 104/69 94 11/07/24 23:46 85 11/07/24 22:14 O2 Del Method 11/08/24 08:20 Room Air 11/08/24 02:07 Room Air 11/08/24 00:23 Room Air 11/07/24 23:46 11/07/24 22:14 Room Air Laboratory Results CBC 11/08/24 Range/Units 06:09 WBC 6.90 (4.8-10.8) K/ul RBC 4.63 L (4.70-6.10) M/uL Hgb 14.0 (14.0-18.0) g/dl Hct 42.0 (42.0-52.0) % Plt Count 150 (130-400) K/uL Comprehensive Metabolic Panel 11/08/24 Range/Units 06:09 Sodium 140 (136-145) mmol/L Potassium 4.2 (3.5-5.1) mmol/L Chloride 103 (98-107) mmol/L Carbon Dioxide 33 H (21-32) mmol/L BUN 28 H (6-23) mg/dl Creatinine 0.82 (0.6-1.4) mg/dl Glucose 104 H (70-99(Fasting)) mg/dl Calcium 8.1 L (8.6-10.3) mg/dl Intake and Output 11/07/24 11/08/24 11/08/24 22:59 06:59 14:59 Intake Total 650 / 1140 250 / 1140 Output Total 2000 / 3500 600 / 3500 Balance -1350 / -2360 -350 / -2360 Intake: IV 50 / 50 cefTRIAXone SODIUM 2,000 mg In 50 / 50 50 ml @ 100 mls/hr IV Q24H [facility] Rx#:[id number] Oral 600 / 1090 250 / 1090 Output: Urine 2000 / 3500 600 / 3500 Other: Weight 118 kg Weight Measurement Method Built in [facility] Diagnostic Findings Telemetry: AV paced in the 80s PG Care Time/CCT Total # of Minutes Spent Total Time Spent with Patient: Total time spent is greater than 50% in coordination of care (as documented) at patient's floor/unit and/or counseling patient. Total time spent (Kostas Yeboah PA-C): 38 minutes Coding Level of Care Code 11365 SUB INP/OBS CARE 2/35MIN Diagnoses Streptococcal bacteremia R78.81; B95.5 Bilateral lower leg cellulitis L03.116; L03.115 Heart failure, systolic, with acute decompensation I50.23 Ischemic cardiomyopathy I25.5 Acute Lyme disease A69.20
--- NOTE | 2024-11-08 15:04 | Hospitalist Progress Note ---
Date of Service November 08, 2024 Assessment & Plan (1) Febrile illness, acute: Plan: 74-year-old male with past medical history significant for dyslipidemia, prediabetes, congestive heart failure with reduced ejection fraction and diastolic dysfunction, history of ischemic cardiopathy, hypertension, history of CAD status post stent, history of V. tach, IVCD conduction defect, left bundle branch block, status post defibrillator, morbid obesity, osteoarthritis, who lives at home with his and ambulates with a walker comes because of fever and not feeling well. Patient says since last Saturday is not feeling well. Saturday did okay. On Saturday again he was not feeling well. Was feeling short of breath, having body aches, nauseous and had 3 bowel movements which were normal and was not getting better so EMS was called. For EMS he had temperature of 101.7 degrees. Denies any headache. Vision is okay. No runny nose. No sore throat. Has some cough. Appetite is okay. Micturating okay. Has swelling in the lower extremities which patient thinks is same as before, no increase in swelling as per patient. Hemodynamics are okay. Streptococcal bacteremia/Sepsis--POA H/O posterior cervical fusion, left hip arthroplasty, AICD --Blood cultures grew Streptococcus dysgalactiae --Repeat blood cultures negative to date --ECHO: No evidence of vegetation. EF 20 to 24%.(Unchanged from prior echo in 2023) -TTE: Mild to moderate aortic valve stenosis with an aortic valve area by planimetry 1.9 cm. Aortic, mitral, pulmonic, tricuspid valves were well- visualized without evidence of vegetation. Right atrial and right ventricular pacemaker/AICD leads were adequately visualized without evidence of vegetation --Appreciate ID, cardiology input -- Empirically on Rocephin, doxycycline>> Rocephin -- Discontinue doxycycline given Lyme screen positive only for prior infection -- Discussed with infectious disease on 11/05/2024: Recommends 4-week course of IV ceftriaxone from last negative blood cultures --Will need PICC line prior to discharge Will need weekly blood work while on IV antibiotics Continue current management Leg cellulitis --Venous Doppler:No sonographic evidence of acute DVT was detected in the bilateral common femoral, superficial femoral, popliteal and posterior tibial, and peroneal veins at the time of examination. Bilateral complex Balderas's cysts with features suggestive of synovitis. Clinical correlation is recommended. Diffuse subcutaneous edema of the bilateral calves. Right inguinal lymph nodes are seen, the largest measuring 3.2 x 1.6 x 2.2 cm. -- Continue IV Rocephin as above --Monitor volume status --Right inguinal lymphadenopathy likely reactive to infection. May need monitoring as outpatient to ensure resolution No signs of sepsis currently Monitor Chronic CHF with low EF and atrial dysfunction Echo as above ACID in place Resume lisinopril as able --Consideration to be started on diuretics per cardiology Continue metoprolol Monitor volume status -- Increased IV Lasix to 40 mg twice a day Needs follow-up with cardiology on discharge Monitor and replete electrolytes as needed Continue diuresis as recommended by cardiology -8 L since hospitalization Continue IV diuresis History of V. tach ACID Continue amiodarone, metoprolol Had an episode of NSVT today. Asymptomatic Monitor and replete electrolytes as needed CAD status post stents Continue aspirin, Plavix, metoprolol, atorvastatin Hypertension Resume lisinopril as able Continue metoprolol succinate Monitor blood pressure Prediabetes Current HbA1c level 5.3% Morbid obesity BMI 44 Hypomagnesia replace and monitor DVT prophylaxis Lovenox SQ CODE STATUS Full code Disposition Expected discharge home when stable Admission and Anticipated Discharge Date Admission Date: November 02, 2024 Subjective Patient is seen and examined at bedside No new complaints slept better overnight Leg edema slowly improving Denies any chest pain, dyspnea, nausea, vomiting, abdominal pain Review of Systems Review of Systems: All systems reviewed & are unremarkable except as noted in Subjective Physical Exam Physical Exam: Physical Exam: Vitals signs as noted above General Appearance:Morbidly Obese, no apparent distress Head: normocephalic, Atraumatic Eyes: normal inspection, EOMI Neck: supple, Trachea midline Respiratory/Chest: Normal breath sounds, CTA, No accessory muscle use Cardiovascular: S1, S2, + murmur Abdomen/GI:Soft, Non tender, Bowel sounds present Extremities/Musculoskeletal:normal inspection, 3+ Edema L>R, mild erythema Neurologic/Psych:AAOX3, grossly no focal neurological deficits Skin: normal color, warm Results & Data Results & Data Vital Signs (Past 12 Hours) Vital Signs Temp Pulse Resp BP Pulse Ox O2 Del Method 11/08/24 12:21 Room Air 11/08/24 12:01 36.5 C 82 20 107/69 94 Room Air 11/08/24 08:20 36.3 C L 80 20 106/71 94 Room Air Laboratory Results Short CBC 11/08/24 Range/Units 06:09 WBC 6.90 (4.8-10.8) K/ul Hgb 14.0 (14.0-18.0) g/dl Hct 42.0 (42.0-52.0) % Plt Count 150 (130-400) K/uL BMP 11/08/24 06:09 Sodium 140 Potassium 4.2 Chloride 103 Carbon Dioxide 33 H BUN 28 H Creatinine 0.82 Glucose 104 H Calcium 8.1 L
[2024-11-09 09:50] LABS: Anion Gap 5.0 (3-11); Blood Urea Nitrogen 25.0 mg/dl (6-23); Calcium 8.3 mg/dl (8.6-10.3); Carbon Dioxide 30.0 mmol/L (21-32); Chloride 101.0 mmol/L (98-107); Creatinine Clr Calc Pharmacy 96.5 ml/min; Glucose 152.0 mg/dl (70-99(Fasting)); Potassium 4.4 mmol/L (3.5-5.1); Sodium 136.0 mmol/L (136-145)
[2024-11-09] MEDS: FUROSEMIDE 40 MG/4 ML VIAL IV ONE (10:57)
--- NOTE | 2024-11-09 13:19 | Cardiology Progress Note ---
Date of Service November 09, 2024 Assessment & Plan (1) Streptococcal bacteremia: (2) Bilateral lower leg cellulitis: (3) Heart failure, systolic, with acute decompensation: (4) Ischemic cardiomyopathy: (5) Acute Lyme disease: Plan Admitted with generalized febrile illness Initial cultures obtained on 11/01/2024 grew streptococcus dysgalactiae Repeat cultures obtained on 11/02/2024 without growth BiV ICD implanted in 2020. November 04, 2024 MIKAEL negative for vegetation History of spinal hardware. No back pain Suspected source: left lower extremity cellulitis 4-week course of IV ceftriaxone from last negative blood cultures recommended Acute decompensated systolic congestive heart failure Known severe ischemic cardiomyopathy. 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 PCI to prox LAD and diagonal in 05/2017 at [facility]. Repeat cath 01/2018 for NSTEMI with patent LAD, diagonal 1 stents, stenosis of the apical LAD not amenable for PCI LVEF 20 to 24%, unchanged compared to prior Status post BiV ICD implantation in 2020 History of paroxysmal ventricular tachycardia for which patient is prescribed amiodarone; TFTs and LFTs okay this admission Volume status: Improving but ongoing hypervolemia. Recommendations: * Continue IV diuresis with furosemide at 40 mg twice per day. * Transition to torsemide 20 mg daily at discharge. (Not chronically treated with loop diuretic prior to admission) * Lisinopril remains on hold due to hypotension * Consider restart lisinopril in a.m. pending assessment. * Repeat echocardiogram in 1 year for surveillance of mild to moderate aortic valve stenosis * Possible discharge in 24 hours. Admission and Anticipated Discharge Date Admission Date: November 02, 2024 Subjective 74-year-old patient seen and examined at the bedside. Edema improving. Fluid balance negative additional 2.9 L. Renal function remains stable. Telemetry demonstrates sequential AV pacing at 80 bpm. Denies chest pain or shortness of breath. Requesting discharge as soon as possible. Review of Systems Review of Systems: All systems reviewed & are unremarkable except as noted in Subjective Physical Exam Constitutional: well nourished and + obese; no acute distress Respiratory: no respiratory distress, no labored breathing and no retractions Auscultation: no crackles, no rales, no rhonchi and no wheezes Cardiovascular: Rate/Rhythm: regular rate and regular rhythm Heart Sounds: normal S1, normal S2 and + murmur (2/6 MARYCHUY) Extremities: + edema (2+Left lo wer extremity edema with erythema) Gastrointestinal (Abdomen): Inspection/Auscultation: normal bowel sounds; abdomen not distended Percussion/Palpation: abdomen soft; abdomen nontender, no guarding and abdomen not rigid Neurologic: CN's II-XI intact bilaterally and moves all extremities Results & Data Vital Signs (Past 12 Hours) Vital Signs Temp Pulse Pulse Resp BP BP Pulse Ox 11/09/24 11:34 36.4 C L 83 20 116/72 96 11/09/24 11:23 11/09/24 08:01 35.6 C L 82 20 110/73 93 11/09/24 05:42 81 11/09/24 03:10 36.3 C L 83 14 114/73 93 O2 Del Method 11/09/24 11:34 Room Air 11/09/24 11:23 Room Air 11/09/24 08:01 Room Air 11/09/24 05:42 11/09/24 03:10 Room Air Laboratory Results Comprehensive Metabolic Panel 11/09/24 Range/Units 09:09 Sodium 136 (136-145) mmol/L Potassium 4.4 (3.5-5.1) mmol/L Chloride 101 (98-107) mmol/L Carbon Dioxide 30 (21-32) mmol/L BUN 25 H (6-23) mg/dl Creatinine 0.80 (0.6-1.4) mg/dl Glucose 152 H (70-99(Fasting)) mg/dl Calcium 8.3 L (8.6-10.3) mg/dl Intake and Output 11/08/24 11/09/24 11/09/24 22:59 06:59 14:59 Intake Total 722 / 1022 300 / 1022 Output Total 1750 / 2650 900 / 2650 1350 / 1350 Balance -1028 / -1628 -600 / -1628 -1350 / -1350 Intake: IV 50 / 50 cefTRIAXone SODIUM 2,000 mg In 50 / 50 50 ml @ 100 mls/hr IV Q24H [facility] Rx#:[id number] Oral 722 / 972 250 / 972 Output: Urine 1750 / 2650 900 / 2650 1350 / 1350 PG Care Time/CCT Total # of Minutes Spent Total Time Spent with Patient: Total time spent is greater than 50% in coordination of care (as documented) at patient's floor/unit and/or counseling patient: Coding [place] [address] SUB INP/OBS CARE MIN Patient Type Established History Detailed Exam Detailed Medical Decision Making Moderate Complexity Diagnoses Streptococcal bacteremia R78.81; B95.5 Bilateral lower leg cellulitis L03.116; L03.115 Heart failure, systolic, with acute decompensation I50.23 Ischemic cardiomyopathy I25.5 Acute Lyme disease A69.20
--- NOTE | 2024-11-09 15:50 | Hospitalist Progress Note ---
Date of Service November 09, 2024 Assessment & Plan (1) Febrile illness, acute: Plan: 74-year-old male with past medical history significant for dyslipidemia, prediabetes, congestive heart failure with reduced ejection fraction and diastolic dysfunction, history of ischemic cardiopathy, hypertension, history of CAD status post stent, history of V. tach, IVCD conduction defect, left bundle branch block, status post defibrillator, morbid obesity, osteoarthritis, who lives at home with his and ambulates with a walker comes because of fever and not feeling well. Patient says since last Saturday is not feeling well. Saturday did okay. On Saturday again he was not feeling well. Was feeling short of breath, having body aches, nauseous and had 3 bowel movements which were normal and was not getting better so EMS was called. For EMS he had temperature of 101.7 degrees. Denies any headache. Vision is okay. No runny nose. No sore throat. Has some cough. Appetite is okay. Micturating okay. Has swelling in the lower extremities which patient thinks is same as before, no increase in swelling as per patient. Hemodynamics are okay. Streptococcal bacteremia/Sepsis--POA H/O posterior cervical fusion, left hip arthroplasty, AICD --Blood cultures grew Streptococcus dysgalactiae --Repeat blood cultures negative --ECHO: No evidence of vegetation. EF 20 to 24%.(Unchanged from prior echo in 2023) -TTE: Mild to moderate aortic valve stenosis with an aortic valve area by planimetry 1.9 cm. Aortic, mitral, pulmonic, tricuspid valves were well- visualized without evidence of vegetation. Right atrial and right ventricular pacemaker/AICD leads were adequately visualized without evidence of vegetation --Appreciate ID, cardiology input -- Empirically on Rocephin, doxycycline>> Rocephin -- Discontinue doxycycline given Lyme screen positive only for prior infection -- Discussed with infectious disease on 11/05/2024: Recommends 4-week course of IV ceftriaxone from last negative blood cultures --Plan to place midline for IV antibiotics today Likely discharge in next 24 to 48 hours-- Leg cellulitis --Venous Doppler:No sonographic evidence of acute DVT was detected in the bilateral common femoral, superficial femoral, popliteal and posterior tibial, and peroneal veins at the time of examination. Bilateral complex Balderas's cysts with features suggestive of synovitis. Clinical correlation is recommended. Diffuse subcutaneous edema of the bilateral calves. Right inguinal lymph nodes are seen, the largest measuring 3.2 x 1.6 x 2.2 cm. -- Continue IV Rocephin as above --Monitor volume status --Right inguinal lymphadenopathy likely reactive to infection. May need monitoring as outpatient to ensure resolution No signs of sepsis currently Clinically improving Chronic CHF with low EF and atrial dysfunction Echo as above ACID in place Continue metoprolol Monitor volume status -- Continue IV Lasix 40 mg twice a day Needs follow-up with cardiology on discharge Monitor and replete electrolytes as needed -10 L since hospitalization Continue IV diuresis Likely transition to torsemide on discharge Consideration to resume lisinopril tomorrow if blood pressure accommodates History of V. tach ACID Continue amiodarone, metoprolol Had an episode of NSVT today. Asymptomatic Monitor and replete electrolytes as needed CAD status post stents Continue aspirin, Plavix, metoprolol, atorvastatin Hypertension Resume lisinopril as able Continue metoprolol succinate Monitor blood pressure Prediabetes Current HbA1c level 5.3% Morbid obesity BMI 44 Hypomagnesia replace and monitor DVT prophylaxis Lovenox SQ CODE STATUS Full code Disposition Expected discharge home when stable Admission and Anticipated Discharge Date Admission Date: November 02, 2024 Subjective Patient is seen and examined at bedside Leg edema, erythema much improved Discussed with cardiology today Diuresing well Denies any chest pain, dyspnea, nausea, vomiting, abdominal pain Review of Systems Review of Systems: All systems reviewed & are unremarkable except as noted in Subjective Physical Exam Physical Exam: Physical Exam: Vitals signs as noted above General Appearance:Morbidly Obese, no apparent distress Head: normocephalic, Atraumatic Eyes: normal inspection, EOMI Neck: supple, Trachea midline Respiratory/Chest: Normal breath sounds, CTA, No accessory muscle use Cardiovascular: S1, S2, + murmur Abdomen/GI:Soft, Non tender, Bowel sounds present Extremities/Musculoskeletal:normal inspection, 3+ Edema L>R, mild erythema Neurologic/Psych:AAOX3, grossly no focal neurological deficits Skin: normal color, warm Results & Data Results & Data Vital Signs (Past 12 Hours) Vital Signs Temp Pulse Pulse Resp BP BP Pulse Ox 11/09/24 15:36 36.3 C L 82 20 116/77 96 11/09/24 12:59 80 11/09/24 11:34 36.4 C L 83 20 116/72 96 11/09/24 11:23 11/09/24 08:01 35.6 C L 82 20 110/73 93 11/09/24 05:42 81 O2 Del Method 11/09/24 15:36 Room Air 11/09/24 12:59 11/09/24 11:34 Room Air 11/09/24 11:23 Room Air 11/09/24 08:01 Room Air 11/09/24 05:42 Laboratory Results [facility] 11/09/24 09:09 Sodium 136 Potassium 4.4 Chloride 101 Carbon Dioxide 30 BUN 25 H Creatinine 0.80 Glucose 152 H Calcium 8.3 L
[2024-11-10 07:25] VITALS: PULSE 80
[2024-11-10 07:49] LABS: Anion Gap 4.0 (3-11); Blood Urea Nitrogen 25.0 mg/dl (6-23); Calcium 7.9 mg/dl (8.6-10.3); Carbon Dioxide 29.0 mmol/L (21-32); Chloride 103.0 mmol/L (98-107); Creatinine Clr Calc Pharmacy 94.1 ml/min; Glucose 103.0 mg/dl (70-99(Fasting)); Potassium 3.9 mmol/L (3.5-5.1); Sodium 136.0 mmol/L (136-145)
[2024-11-10 11:42] VITALS: RESP 16; TEMP 97.5; O2SAT 95
--- NOTE | 2024-11-10 12:24 | Hospitalist Progress Note ---
Date of Service November 10, 2024 Assessment & Plan (1) Febrile illness, acute: Plan: 74-year-old male with past medical history significant for dyslipidemia, prediabetes, congestive heart failure with reduced ejection fraction and diastolic dysfunction, history of ischemic cardiopathy, hypertension, history of CAD status post stent, history of V. tach, IVCD conduction defect, left bundle branch block, status post defibrillator, morbid obesity, osteoarthritis, who lives at home with his and ambulates with a walker comes because of fever and not feeling well. Patient says since last Saturday is not feeling well. Saturday did okay. On Saturday again he was not feeling well. Was feeling short of breath, having body aches, nauseous and had 3 bowel movements which were normal and was not getting better so EMS was called. For EMS he had temperature of 101.7 degrees. Denies any headache. Vision is okay. No runny nose. No sore throat. Has some cough. Appetite is okay. Micturating okay. Has swelling in the lower extremities which patient thinks is same as before, no increase in swelling as per patient. Hemodynamics are okay. Streptococcal bacteremia/Sepsis--POA H/O posterior cervical fusion, left hip arthroplasty, AICD --Blood cultures grew Streptococcus dysgalactiae --Repeat blood cultures negative --ECHO: No evidence of vegetation. EF 20 to 24%.(Unchanged from prior echo in 2023) -TTE: Mild to moderate aortic valve stenosis with an aortic valve area by planimetry 1.9 cm. Aortic, mitral, pulmonic, tricuspid valves were well- visualized without evidence of vegetation. Right atrial and right ventricular pacemaker/AICD leads were adequately visualized without evidence of vegetation --Appreciate ID, cardiology input -- Empirically on Rocephin, doxycycline>> Rocephin -- Discontinue doxycycline given Lyme screen positive only for prior infection -- Discussed with infectious disease on 11/05/2024: Recommends 4-week course of IV ceftriaxone from last negative blood cultures --S/P midline placed for IV antibiotics on 11/09/24 --Case management to help with discharge planning Leg cellulitis --Venous Doppler:No sonographic evidence of acute DVT was detected in the bilateral common femoral, superficial femoral, popliteal and posterior tibial, and peroneal veins at the time of examination. Bilateral complex Balderas's cysts with features suggestive of synovitis. Clinical correlation is recommended. Diffuse subcutaneous edema of the bilateral calves. Right inguinal lymph nodes are seen, the largest measuring 3.2 x 1.6 x 2.2 cm. -- Continue IV Rocephin as above --Monitor volume status --Right inguinal lymphadenopathy likely reactive to infection. May need monitoring as outpatient to ensure resolution No signs of sepsis currently Clinically improved Chronic CHF with low EF and atrial dysfunction Echo as above ACID in place Continue metoprolol Monitor volume status -- Continue IV Lasix 40 mg twice a day Needs follow-up with cardiology on discharge Monitor and replete electrolytes as needed -12 L since hospitalization Continue IV diuresis per cardiology Likely transition to torsemide on discharge Consideration to resume lisinopril if blood pressure accommodates History of V. tach ACID Continue amiodarone, metoprolol Had an episode of NSVT while hospitalized. Asymptomatic Monitor and replete electrolytes as needed CAD status post stents Continue aspirin, Plavix, metoprolol, atorvastatin Hypertension Resume lisinopril as able Continue metoprolol succinate Monitor blood pressure Prediabetes Current HbA1c level 5.3% Morbid obesity BMI 44 Hypomagnesia replace and monitor DVT prophylaxis Lovenox SQ CODE STATUS Full code Disposition Expected discharge home when stable Admission and Anticipated Discharge Date Admission Date: November 02, 2024 Subjective Patient is seen and examined at bedside No new complaints Eager to get discharged Leg edema much improved Still has some leg redness Denies any chest pain, dyspnea, nausea, vomiting, abdominal pain Review of Systems Review of Systems: All systems reviewed & are unremarkable except as noted in Subjective Physical Exam Physical Exam: Physical Exam: Vitals signs as noted above General Appearance:Morbidly Obese, no apparent distress Head: normocephalic, Atraumatic Eyes: normal inspection, EOMI Neck: supple, Trachea midline Respiratory/Chest: Normal breath sounds, CTA, No accessory muscle use Cardiovascular: S1, S2, + murmur Abdomen/GI:Soft, Non tender, Bowel sounds present Extremities/Musculoskeletal:normal inspection, 3+ Edema L>R, mild erythema Neurologic/Psych:AAOX3, grossly no focal neurological deficits Skin: normal color, warm Results & Data Results & Data Vital Signs (Past 12 Hours) Vital Signs Temp Pulse Pulse Resp BP BP Pulse Ox 11/10/24 11:33 36.4 C L 80 16 110/76 95 11/10/24 07:06 36.6 C 84 20 101/59 L 94 11/10/24 06:32 95/58 L 11/10/24 05:43 80 11/10/24 03:45 81 16 92/57 L 94 11/10/24 00:40 O2 Del Method 11/10/24 11:33 Room Air 11/10/24 07:06 Room Air 11/10/24 06:32 11/10/24 05:43 11/10/24 03:45 Room Air 11/10/24 00:40 Room Air Laboratory Results [facility] 11/10/24 07:05 Sodium 136 Potassium 3.9 Chloride 103 Carbon Dioxide 29 BUN 25 H Creatinine 0.82 Glucose 103 H Calcium 7.9 L
--- NOTE | 2024-11-10 13:05 | Cardiology Progress Note ---
Date of Service November 10, 2024 Assessment & Plan (1) Streptococcal bacteremia: (2) Bilateral lower leg cellulitis: (3) Heart failure, systolic, with acute decompensation: (4) Ischemic cardiomyopathy: (5) Acute Lyme disease: Plan Admitted with generalized febrile illness Initial cultures obtained on 11/01/2024 grew streptococcus dysgalactiae Repeat cultures obtained on 11/02/2024 without growth BiV ICD implanted in 2020. November 04, 2024 MIKAEL negative for vegetation History of spinal hardware. No back pain Suspected source: left lower extremity cellulitis 4-week course of IV ceftriaxone from last negative blood cultures recommended Acute decompensated systolic congestive heart failure Known severe ischemic cardiomyopathy. 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 PCI to prox LAD and diagonal in 05/2017 at [facility]. Repeat cath 01/2018 for NSTEMI with patent LAD, diagonal 1 stents, stenosis of the apical LAD not amenable for PCI LVEF 20 to 24%, unchanged compared to prior Status post BiV ICD implantation in 2020 History of paroxysmal ventricular tachycardia for which patient is prescribed amiodarone; TFTs and LFTs okay this admission Volume status: Improving but ongoing hypervolemia. Recommendations: * Discontinue IV Lasix. * Transition to torsemide 20 mg daily. (Not chronically treated with loop d iuretic prior to admission) * Outpatient basic metabolic panel in 1 week. * Restart lisinopril. * Repeat echocardiogram in 1 year for surveillance of mild to moderate aortic valve stenosis * No further inpatient cardiac testing or intervention recommended at this time. * Cardiology will sign off. Iftikhar Raya DO, [facility] Admission and Anticipated Discharge Date Admission Date: November 02, 2024 Subjective 74-year-old male seen examined the bedside. Edema improving. Telemetry reveals AV paced rhythm. Offers no concerns/complaints. Review of Systems Review of Systems: All systems reviewed & are unremarkable except as noted in Subjective Physical Exam Constitutional: well nourished and + obese; no acute distress Respiratory: no respiratory distress, no labored breathing and no retractions Auscultation: no crackles, no rales, no rhonchi and no wheezes Cardiovascular: Rate/Rhythm: regular rate and regular rhythm Heart Sounds: normal S1, normal S2 and + murmur (2/6 MARYCHUY) Extremities: + edema (2+Left lower extremity edema with erythema) Gastrointestinal (Abdomen): Inspection/Auscultation: normal bowel sounds; abdomen not distended Percussion/Palpation: abdomen soft; abdomen nontender, no guarding and abdomen not rigid Neurologic: CN's II-XI intact bilaterally and moves all extremities Results & Data Vital Signs (Past 12 Hours) Vital Signs Temp Pulse Pulse Resp BP BP Pulse Ox 11/10/24 11:33 36.4 C L 80 16 110/76 95 11/10/24 07:06 36.6 C 84 20 101/59 L 94 11/10/24 06:32 95/58 L 11/10/24 05:43 80 11/10/24 03:45 81 16 92/57 L 94 O2 Del Method 11/10/24 11:33 Room Air 11/10/24 07:06 Room Air 11/10/24 06:32 11/10/24 05:43 11/10/24 03:45 Room Air Laboratory Results Comprehensive Metabolic Panel 11/10/24 Range/Units 07:05 Sodium 136 (136-145) mmol/L Potassium 3.9 (3.5-5.1) mmol/L Chloride 103 (98-107) mmol/L Carbon Dioxide 29 (21-32) mmol/L BUN 25 H (6-23) mg/dl Creatinine 0.82 (0.6-1.4) mg/dl Glucose 103 H (70-99(Fasting)) mg/dl Calcium 7.9 L (8.6-10.3) mg/dl Intake and Output 11/09/24 11/10/24 11/10/24 22:59 06:59 14:59 Intake Total 240 / 940 700 / 940 Output Total 825 / 3750 1575 / 3750 700 / 700 Balance -585 / -2810 -875 / -2810 -700 / -700 Intake: IV 50 / 50 cefTRIAXone SODIUM 2,000 mg In 50 / 50 50 ml @ 100 mls/hr IV Q24H [facility] Rx#:[id number] Oral 240 / 890 650 / 890 Output: Urine 825 / 3750 1575 / 3750 700 / 700 PG Care Time/CCT Total # of Minutes Spent Total Time Spent with Patient: Total time spent is greater than 50% in coordination of care (as documented) at patient's floor/unit and/or counseling patient: Coding Level of Care Code 63322 SUB INP/OBS CARE 3/50MIN Diagnoses Streptococcal bacteremia R78.81; B95.5 Bilateral lower leg cellulitis L03.116; L03.115 Heart failure, systolic, with acute decompensation I50.23 Ischemic cardiomyopathy I25.5 Acute Lyme disease A69.20
--- NOTE | 2024-11-10 13:35 | Discharge Summary ---
Date of Service November 10, 2024 Admission HPI Per Admitting Provider 74-year-old male with past medical history significant for dyslipidemia, prediabetes, congestive heart failure with reduced ejection fraction and diastolic dysfunction, history of ischemic cardiopathy, hypertension, history of CAD status post stent, history of V. tach, IVCD conduction defect, left bundle branch block, status post defibrillator, morbid obesity, osteoarthritis, who lives at home with his and ambulates with a walker comes because of fever and not feeling well. Patient says since last Saturday is not feeling well. Saturday did okay. On Saturday again he was not feeling well. Was feeling short of breath, having body aches, nauseous and had 3 bowel movements which were normal and was not getting better so EMS was called. For EMS he had temperature of 101.7 degrees. Denies any headache. Vision is okay. No runny nose. No sore throat. Has some cough. Appetite is okay. Micturating okay. Has swelling in the lower extremities which patient thinks is same as before, no increase in swelling as per patient. Hemodynamics are okay. Past medical history. As mentioned above. Past surgical history. Cardiac cath X2 with stents. Neck surgery. Left total hip replacement. Lower back surgery for stenosis. Cardiac defibrillator. Social history. . No smoking.. Alcohol rarely. No drug use. Family history. Brother had heart valve issues. Father had heart failure. Heart disease. Sister had heart disorder. Mother had stroke. Admission Exam Per Admitting Provider General- Not in distress Head- atraumatic Eyes- PERRL. ENT- oropharynx clear Neck- supple, no JVD. Lungs- clear to auscultation mild b/l wheezing, no crackles Heart- regular rate and rhythm; no murmur, no gallop, no rub appreciated Abdomen- normal bowel sounds, soft, nontender, no distension. Extremities- b/l lower extremity gross edema present with mild erythematous left leg Neuro- alert, oriented PERRL, no facial palsy; no dysarthria; moves extremities Principal Diagnosis Streptococcal bacteremia/Sepsis Leg cellulitis Acute decompensated systolic congestive heart failure Discharge Data Allergies Allergy/AdvReac Type Severity Reaction Status Date / Time No Known Allergies Allergy Verified 10/29/23 07:06 Consultations 11/02/24 13:42 Consult Infectious Diseases Routine 11/03/24 16:01 Consult Cardiology Routine 11/04/24 10:33 Consult Anesthesiology Routine Procedures Performed Operation Date: 11/04/24 13:00 Actual Procedures s Echo Doppler Complete - Scott Umanzor DO s Echo Color Flow - Scott Umanzor DO p Echo Transesophageal - Scott Umanzor DO Ordered Studies Laboratory Results WBC 6.90 K/ul (4.8-10.8) 11/08/24 06:09 RBC 4.63 M/uL (4.70-6.10) L 11/08/24 06:09 Hgb 14.0 g/dl (14.0-18.0) 11/08/24 06:09 POC Hgb 15.6 g/dl (14.0-18.0) 11/01/24 21:32 Hct 42.0 % (42.0-52.0) 11/08/24 06:09 POC Hct 46 % (42-52) 11/01/24 21:32 MCV 90.7 fL (80.0-100.0) 11/08/24 06:09 MCH 30.2 pg (25.0-34.0) 11/08/24 06:09 MCHC 33.3 g/dL (32.0-36.0) 11/08/24 06:09 RDW Std Deviation 46.2 fL (36.4-46.3) 11/08/24 06:09 RDW Coeff of Ralph 14.0 % (11.5-14.5) 11/08/24 06:09 Plt Count 150 K/uL (130-400) 11/08/24 06:09 MPV 10.5 fL (9.4-12.4) 11/08/24 06:09 Immature Gran % (Auto) 0.1 % 11/04/24 06:47 Neut % (Auto) 81.1 % 11/04/24 06:47 Lymph % (Auto) 5.9 % 11/04/24 06:47 Stephens % (Auto) 12.5 % 11/04/24 06:47 Eos % (Auto) 0.0 % 11/04/24 06:47 Baso % (Auto) 0.4 % 11/04/24 06:47 Neut # (Auto) 6.35 K/uL (1.40-6.50) 11/04/24 06:47 Lymph # (Auto) 0.46 K/uL (1.20-3.40) L 11/04/24 06:47 Stephens # (Auto) 0.98 K/uL (0.11-0.59) H 11/04/24 06:47 Eos # (Auto) 0.00 K/uL (0.00-0.50) 11/04/24 06:47 Baso # (Auto) 0.03 K/uL (0.00-0.20) 11/04/24 06:47 Immature Gran # (Auto) 0.01 K/uL (0.01-0.20) 11/04/24 06:47 Toxic Vacuolation 1+ 11/01/24 21:29 POC Sodium 138 mmol/L (135-144) 11/01/24 21:32 Sodium 136 mmol/L (136-145) 11/10/24 07:05 POC Potassium 4.3 mmol/L (3.3-5.0) 11/01/24 21:32 Potassium 3.9 mmol/L (3.5-5.1) 11/10/24 07:05 POC Chloride 103 mmol/L (101-112) 11/01/24 21:32 Chloride 103 mmol/L (98-107) 11/10/24 07:05 Carbon Dioxide 29 mmol/L (21-32) 11/10/24 07:05 POC Total CO2 23 mmol/L (24-31) L 11/01/24 21:32 Anion Gap 4 (3-11) 11/10/24 07:05 POC Anion Gap 17.0 mmol/L (16-25) 11/01/24 21:32 POC BUN 18 mg/dl (7-18) 11/01/24 21:32 BUN 25 mg/dl (6-23) H 11/10/24 07:05 Creatinine 0.82 mg/dl (0.6-1.4) 11/10/24 07:05 POC Creatinine 0.9 mg/dl (0.6-1.3) 11/01/24 21:32 Est Cr Clr Drug Dosing 94.1 ml/min 11/10/24 07:05 eGFR 91.61 11/10/24 07:05 BUN/Creatinine Ratio 30.5 (10-20) H 11/10/24 07:05 Glucose 103 mg/dl (70-99(Fasting)) H 11/10/24 07:05 POC Glucose (other) 130 mg/dl (70-99) H 11/01/24 21:32 Estimat Average Glucose 105 mg/dl 11/02/24 05:20 Hemoglobin A1c 5.3 % (4.5-5.6) 11/02/24 05:20 Lactate 1.5 mmol/L (0.4-2.0) 11/01/24 21:29 Calcium 7.9 mg/dl (8.6-10.3) L 11/10/24 07:05 POC Ioniz Calcium Nallely 1.16 mmol/l (1.12-1.32) 11/01/24 21:32 Phosphorus 2.6 mg/dl (2.5-4.9) 11/04/24 06:47 Magnesium 1.9 mg/dl (1.7-2.4) 11/08/24 06:09 Total Bilirubin 0.5 mg/dl (0.2-1.0) 11/03/24 07:08 AST 17 U/L (13-39) 11/03/24 07:08 ALT 15 U/L (7-52) 11/03/24 07:08 Alkaline Phosphatase 62 U/L (34-104) 11/03/24 07:08 Troponin I High Sens 11.6 pg/ml (0-20) 11/01/24 21:29 B-Natriuretic Peptide 341 pg/ml (0-100) H 11/01/24 21:29 Total Protein 6.3 gm/dl (6.0-8.3) 11/03/24 07:08 Albumin 3.2 gm/dl (3.4-5.0) L 11/03/24 07:08 Globulin 3.1 gm/dl (2.5-4.0) 11/03/24 07:08 Albumin/Globulin Ratio 1.0 (0.9-2) 11/03/24 07:08 Procalcitonin 0.07 ng/ml (0-0.5) 11/01/24 21:29 TSH 4.343 uIu/ml (0.300-4.500) 11/01/24 21:29 Urine Color Yellow 11/01/24 21:37 Urine Appearance Clear (Clear) 11/01/24 21:37 Urine pH 5.0 (4.5-7.5) 11/01/24 21:37 Ur Specific [place] 1.016 (1.000-1.030) 11/01/24 21:37 Urine Protein Negative (Negative) 11/01/24 21:37 Urine Glucose (UA) Negative (Negative) 11/01/24 21:37 Urine Ketones Negative (Negative) 11/01/24 21:37 Urine Blood Negative (Negative) 11/01/24 21:37 Urine Nitrite Negative (Negative) 11/01/24 21:37 Urine Bilirubin Negative (Negative) 11/01/24 21:37 Urine Urobilinogen Negative (Negative) 11/01/24 21:37 Ur Leukocyte Esterase Negative (Negative) 11/01/24 21:37 Urine Comment 11/01/24 21:37 Nasal Screen MRSA (PCR) Negative (Negative) 11/02/24 Unknown Adenovirus (PCR) Not Detected (NotDetected) 11/01/24 21:31 Anaplasma Smear See Comment 11/01/24 21:29 A. phagocytophilum DNA Negative (Negative) 11/01/24 23:51 Babesia Smear See Comment 11/01/24 21:29 Babesia microti DNA PCR Not Detected (Not Detected) 11/01/24 23:51 B. pertussis DNA (PCR) Not Detected (NotDetected) 11/01/24 21:31 B.parapertussis DNA PCR Not Detected (NotDetected) 11/01/24 21:31 Lyme Disease Screen Positive (Negative) H 11/01/24 21:29 Lyme Tier 2 IgG Confirm Positive (Negative) H 11/01/24 21:29 Lyme Tier 2 IgM Confirm Negative (Negative) 11/01/24 21:29 C. pneumoniae DNA (PCR) Not Detected (NotDetected) 11/01/24 21:31 Coronavirus OC43 (PCR) Not Detected (NotDetected) 11/01/24 21:31 Coronavirus HKU1 (PCR) Not Detected (NotDetected) 11/01/24 21:31 Coronavirus 229E (PCR) Not Detected (NotDetected) 11/01/24 21:31 SARS-CoV-2 (PCR) Not Detected (NotDetected) 11/01/24 21:31 Coronavirus NL63 (PCR) Not Detected (NotDetected) 11/01/24 21:31 Human Metapneumovir PCR Not Detected (NotDetected) 11/01/24 21:31 Influenza Type A (PCR) Not Detected (NotDetected) 11/01/24 21:31 Influenza Type B (PCR) Not Detected (NotDetected) 11/01/24 21:31 M. pneumoniae (PCR) Not Detected (NotDetected) 11/01/24 21:31 Parainfluenza 1 (PCR) Not Detected (NotDetected) 11/01/24 21:31 Parainfluenza 2 (PCR) Not Detected (NotDetected) 11/01/24 21:31 Parainfluenza 3 (PCR) Not Detected (NotDetected) 11/01/24 21:31 Parainfluenza 4 (PCR) Not Detected (NotDetected) 11/01/24 21:31 RSV (PCR) Not Detected (NotDetected) 11/01/24 21:31 Entero/Rhino (PCR) Not Detected (NotDetected) 11/01/24 21:31 Streptococcus sp PCR DETECTED (NotDetected) A 11/01/24 21:46 Bld Cult ID Panel PCR See PCR Comment (NotDetected) 11/01/24 21:46 Impressions Chest X-Ray 11/01/24 21:26 Exam(s): XR CXR 1 VIEW EXAM: XR Chest, 1 View CLINICAL HISTORY: Reason for exam: weakness. TECHNIQUE: Frontal view of the chest. COMPARISON: 12/27/2020. FINDINGS: Lungs: There is mild pulmonary vascular congestion. No consolidation. Pleural space: There is eventration the right hemidiaphragm. No pleural effusion is noted. No pneumothorax. Heart: A pacemaker is again noted. The heart is enlarged.. Mediastinum: There is uncoiling of thoracic aorta.. Bones/joints: There are postoperative changes involving the spine.. IMPRESSION: Cardiomegaly with pulmonary vascular congestion may represent mild congestive heart failure. Electronically signed by: Connor Warner MD 11/02/24 01:40 AM Venous Doppler Study 11/02/24 01:09 EXAM: US venous doppler LE BI CLINICAL HISTORY: bilateral lower ext edema. DVT. TECHNIQUE: Ultrasound examination of bilateral lower extremity veins was performed in real time and duplex. One or more of the following were performed: spectral analysis, resistive index, waveform analysis, and pulsed Doppler. Evaluation may be limited by the patient's body habitus. COMPARISON: None. FINDINGS: Normal phasic, non-pulsatile, and spontaneous flow is noted in the bilateral common femoral, superficial femoral, popliteal, posterior tibial, and peroneal veins. Visualized veins of both lower extremities demonstrate normal compressibility. No sonographic evidence of acute deep vein thrombosis (DVT) is detected in the visualized veins of both lower extremities. Compression and Augmentation: All evaluated veins compress fully with applied transducer pressure. Augmentation of venous flow is noted with distal compression. Additional Findings: Bilateral complex fluid collections with thickened clayton are noted in the popliteal fossae, consistent with Balderas's cysts. The wall thickening suggests associated synovitis. The right-sided collection measures 4.7 x 2.6 x 1.2 cm. The left-sided collection measures 3.6 x 0.9 x 3.2 cm Diffuse subcutaneous edema is noted throughout the bilateral calves. Right inguinal lymph nodes are seen, the largest measuring 3.2 x 1.6 x 2.2 cm. IMPRESSION: 1. No sonographic evidence of acute DVT was detected in the bilateral common femoral, superficial femoral, popliteal and posterior tibial, and peroneal veins at the time of examination. 2. Bilateral complex Balderas's cysts with features suggestive of synovitis. Clinical correlation is recommended. 3. Diffuse subcutaneous edema of the bilateral calves. 4. Right inguinal lymph nodes are seen, the largest measuring 3.2 x 1.6 x 2.2 cm. Disclaimer: DVT could be missed early in the disease when the clot burden is minimal. For patients with moderate and high pretest probability of DVT and negative ultrasound, the [employer] clinical guidelines recommend testing with a D-dimer assay or repeat ultrasound in 5-7 days. If symptoms worsen, the Society of Radiologists in Ultrasound recommends repeating the ultrasound even earlier. Electronically signed by Yaakov Guerrero 11-02-2024 06:54 AM Hospital Course (1) Febrile illness, acute: 74-year-old male with past medical history significant for dyslipidemia, prediabetes, congestive heart failure with reduced ejection fraction and diastolic dysfunction, history of ischemic cardiopathy, hypertension, history of CAD status post stent, history of V. tach, IVCD conduction defect, left bundle branch block, status post defibrillator, morbid obesity, osteoarthritis, who lives at home with his and ambulates with a walker comes because of fever and not feeling well. Patient says since last Saturday is not feeling well. Saturday did okay. On Saturday again he was not feeling well. Was feeling short of breath, having body aches, nauseous and had 3 bowel movements which were normal and was not getting better so EMS was called. For EMS he had temperature of 101.7 degrees. Denies any headache. Vision is okay. No runny nose. No sore throat. Has some cough. Appetite is okay. Micturating okay. Has swelling in the lower extremities which patient thinks is same as before, no increase in swelling as per patient. Hemodynamics are okay. Streptococcal bacteremia/Sepsis--POA H/O posterior cervical fusion, left hip arthroplasty, AICD --Blood cultures grew Streptococcus dysgalactiae --Repeat blood cultures negative --ECHO: No evidence of vegetation. EF 20 to 24%.(Unchanged from prior echo in 2023) -TTE: Mild to moderate aortic valve stenosis with an aortic valve area by p lanimetry 1.9 cm. Aortic, mitral, pulmonic, tricuspid valves were well- visualized without evidence of vegetation. Right atrial and right ventricular pacemaker/AICD leads were adequately visualized without evidence of vegetation --Appreciate ID, cardiology input -- Empirically on Rocephin, doxycycline>> Rocephin -- Discontinue doxycycline given Lyme screen positive only for prior infection -- Discussed with infectious disease on 11/05/2024: Recommends 4-week course of IV ceftriaxone from last negative blood cultures --S/P midline placed for IV antibiotics on 11/09/24 --Case management to help with discharge planning -Plan to discharge home today Leg cellulitis --Venous Doppler:No sonographic evidence of acute DVT was detected in the bilateral common femoral, superficial femoral, popliteal and posterior tibial, and peroneal veins at the time of examination. Bilateral complex Balderas's cysts with features suggestive of synovitis. Clinical correlation is recommended. Diffuse subcutaneous edema of the bilateral calves. Right inguinal lymph nodes are seen, the largest measuring 3.2 x 1.6 x 2.2 cm. -- Continue IV Rocephin as above --Monitor volume status --Right inguinal lymphadenopathy likely reactive to infection. May need monitoring as outpatient to ensure resolution No signs of sepsis currently Clinically improved Acute decompensated systolic congestive heart failure H/O Chronic CHF with low EF and atrial dysfunction Echo as above ACID in place Continue metoprolol Monitor volume status -- Continue IV Lasix 40 mg twice a day Needs follow-up with cardiology on discharge Monitor and replete electrolytes as needed -12 L since hospitalization Continue IV diuresis per cardiology> transition to torsemide 20 mg daily on discharge Resume lisinopril on discharge History of V. tach ACID Continue amiodarone, metoprolol Had an episode of NSVT while hospitalized. Asymptomatic Monitor and replete electrolytes as needed CAD status post stents Continue aspirin, Plavix, metoprolol, atorvastatin Hypertension Continue lisinopril, metoprolol succinate Monitor blood pressure Prediabetes Current HbA1c level 5.3% Morbid obesity BMI 44 Hypomagnesia replace and monitor DVT prophylaxis Lovenox SQ CODE STATUS Full code Disposition Home with Total Time Total Time Spent Total Time Spent (In Minutes): 45 minutes Discharge Plan Discharge Items Patient Disposition: Home - Home Health Services Reason For Visit: ILLNESS,LYME,SOB Discharge Diagnosis: Streptococcal bacteremia/Sepsis Leg cellulitis Acute decompensated systolic congestive heart failure Condition on Discharge: Fair Activity: Per Instructions section Exercise/Sports: Gradually increase as tolerated Non-emergency contact: Primary Care Provider and Germination Testing Manager Call non-emergency contact if: you have any medication questions, your symptoms worsen, your pain is concerning for you and you have a fever Follow-up/Referrals: Sasha Peng DO [Primary Care Provider] - (The office will call you with a follow up appointment. ) Diet: Heart Healthy Addtl Attending Provider Instructions: -- Follow-up with your primary care physician in 1 week --Follow-up with your indirect fire infantryman in 3-4 weeks as advised -- Completed antibiotic course IV Rocephin 2 g daily until November 30, 2024 as recommended by infectious disease -- Get weekly blood work(complete blood count, basic metabolic panel) while on IV antibiotics. Follow-up with your primary care physician for further recommendations. --Continue fluid restriction as recommended --Germination Testing Manager recommends repeat echocardiogram in 1 year for surveillance of mild to moderate aortic valve stenosis. Seek immediate medical attention if your symptoms reoccur or worsen Please review medication list provided on discharge for any medication changes as instructed. Please call if you have any questions or problems. You can reach a [facility] hospitalist on duty at [facility] 24 hours a day by calling [phone] [facility] Manager Technical Provider Instructions: Call your Primary Care doctor if any of the following symptoms or problems start or get worse: * Shortness of breath or difficulty breathing * Wake up at night short of breath * Chest pain * Cough * Swelling of your hands, feet, or legs * More fatigued or tired with your normal activity * Palpitations - sudden fast heart beats WEIGHT * Weigh yourself every morning after using the bathroom. * Use the same scale. * Wear the same amount of clothing. * Write your weight down on a chart. * Call your Primary Care doctor if you gain more than 2-3 pounds in 1-2 days. MEDICATIONS * Use this discharge instruction sheet for medication instructions. * Take your medications at the time your doctor ordered. * Do not skip a dose of your medicines. * If you miss a dose of medicine, take it as soon as possible, but DO NOT DOUBLE A DOSE. * Read your medicine information when you get home. * Know all of the side effects of your medicine. If in doubt, ask your pharmacist * Call your Primary Care doctor's office if you have any side effects. * Be sure all of your doctors know what medicine and herbs you take (including cold, flu, and herbal medicine). Take the following with you to your follow-up doctor appointments: * Weight Chart * Medication List * List of questions Do not drink excessive alcohol, beer or wine. Pending Studies at Discharge: No Stand-Alone Forms: My [facility], Smoking Cessation Medications and DC Order Prescriptions: New torsemide 20 mg tablet 20 mg PO DAILY Qty: 30 1RF ceftriaxone 2 gram recon soln 2 g IV DAILY Rx Instructions: Until 11/30/24 Continued acetaminophen 500 mg tablet 1,000 mg PO Q8H PRN (Reason: fever or pain) aspirin 81 mg tablet,delayed release (DR/EC) 81 mg PO QAM Patient Comments: 81 mg PO TAKE BID x 28 DAYS S/P HIP REPLACEMENT ON 11/07/18; clopidogrel 75 mg tablet 75 mg PO QAM metoprolol succinate 50 mg tablet extended release 24 hr 50 mg PO QAM Qty: 90 amiodarone 100 mg tablet 200 mg PO QAM atorvastatin 20 mg tablet 20 mg PO QAM lisinopril 5 mg tablet 5 mg PO QAM nitroglycerin 0.4 mg tablet, sublingual 0.4 mg Sublingual DIRECTED PRN (Reason: Chest Pain) cholecalciferol (vitamin D3) 1,000 unit capsule 1,000 units PO QAM pregabalin 25 mg capsule 25 mg PO PM Discharge Orders: Discharge Order (Routine); Ordered 11/10/24 Ordered By: Deangelo Arvizu Admission Data Admit Date/Time: 11/02/24 01:08 Attending Provider: Deangelo Arvizu Admit Provider: Jam Hawkins Primary Care Provider: Sasha Peng Other Providers: Vicente Overton; Franchesca Andrews; Apolinar Prince I.; Gonzalo Fernandes II; Argentina Hagan; Kostas Hernandes; Mc Suarez; Asiya Johnson; Scott Umanzor; Karlo Mcmullen; [place],Home Care; [facility],Home Health; [facility]
[2024-11-10 14:06] VITALS: BP 101/59
== END 2024-11-10 15:00 | disposition home health service (06) | DRG 872 ==
LOC: ED 21:22 → SUATTDRO 11-02 01:08 → 2N 11-02 01:08